=== PATIENT | female | born 1935 | race Caucasian/White ===

== ENCOUNTER 2016-06-02 18:17 | Emergency (ER) | payer MEDICARE, OTHER ==
--- NOTE | 2016-06-02 18:33 | ER Document Report ---
ED Medical Screen (RME) - General Chief Complaint: Fall Stated Complaint: FELL/HEAD INJURY Time seen by provider: 18:29 Mode of Arrival: Wheelchair Information source: Patient Notes: 80 yo female presents to ed for fall with laceration to scalp and nose bleed. TRAVEL OUTSIDE OF THE [place] IN LAST 30 DAYS: No - HPI Onset: Just prior to arrival Onset/Duration: Sudden Quality of pain: Achy Severity: Moderate Pain Level: 4 Associated Symptoms: Headache, Other - scalp lacerations, nose bleed, laceration to nose. Exacerbated by: Denies Relieved by: Denies Similar symptoms previously: No Recently seen / treated by doctor: No - Related Data Smoking: Non-smoker Frequency of alcohol use: None Drug Abuse: None Allergies/Adverse Reactions: No Known Allergies Allergy (Verified 06/02/16 18:27) Past Medical History - Past Medical History Cardiac Medical History: Reports: Hx Coronary Artery Disease, Hx Hypercholesterolemia, Hx Hypertension Past Surgical History: Reports: Hx Appendectomy, Hx Cholecystectomy, Hx Coronary Stent, Hx Hysterectomy, Hx Orthopedic Surgery - shouler surgery - Immunizations Immunizations up to date: Yes Hx Diphtheria, Pertussis, Tetanus Vaccination: Yes
[2016-06-02] MEDS ORDERED: LIDOCAINE 1%/EPINEPHRINE INJ 20 ML VIAL INJ ONE (19:45)
[2016-06-02] MEDS ORDERED: DIPH/PERTUSS(ACELL)/TETANUS VAC/PF 0.5 ML SYR (>=10YO) IM ONE (20:05)
--- NOTE | 2016-06-02 20:07 | ER Document Report ---
ED General - General Chief Complaint: Laceration Stated Complaint: FELL/HEAD INJURY Mode of Arrival: Wheelchair Notes: Patient is an 80-year-old female presenting after she had a mechanical fall prior to arrival. She fell and struck her head on table causing a large laceration to her right scalp. Notes a profuse amount of bleeding from the area that has since been controlled by direct pressure. She notes a constant, dull, throbbing pain to the area. Nothing improves or worsens that pain. She has no history of prior injury to this area. Denies any additional injury during the fall. Denies any syncopal episode leading to this fall and states that she simply tripped over her feet. No loss of consciousness, vomiting, weakness, numbness, altered mental status. She does not use anticoagulation. She has not seen her primary care physician regarding today's concerns. TRAVEL OUTSIDE OF THE [place] IN LAST 30 DAYS: No - Related Data Allergies/Adverse Reactions: No Known Allergies Allergy (Verified 06/02/16 18:27) Past Medical History - General Information source: Patient - Social History Smoking Status: Never Smoker Chew tobacco use (# tins/day): No Frequency of alcohol use: None Drug Abuse: None Lives with: Alone Family History: Reviewed & Not Pertinent Patient has suicidal ideation: No Patient has homicidal ideation: No - Past Medical History Cardiac Medical History: Reports: Hx Coronary Artery Disease, Hx Hypercholesterolemia, Hx Hypertension Past Surgical History: Reports: Hx Appendectomy, Hx Cholecystectomy, Hx Coronary Stent, Hx Hysterectomy, Hx Orthopedic Surgery - shouler surgery - Immunizations Immunizations up to date: Yes Hx Diphtheria, Pertussis, Tetanus Vaccination: Yes Hx Pneumococcal Vaccination: 05/28/10 Review of Systems - Review of Systems Notes: Constitutional: Negative for fever. Eyes: Negative for visual changes. ENT: Negative for facial injury Cardiovascular: Negative for chest injury. Respiratory: Negative for shortness of breath. Gastrointestinal: Negative for abdominal injury. Genitourinary: Negative for genital injury Musculoskeletal: Negative for back injury. Skin: Positive for laceration/abrasions. Neurological: Positive for head injury. Physical Exam - Vital signs Vitals: Temp Pulse Resp BP Pulse Ox 98.1 F 63 20 152/69 H 98 06/02/16 18:31 06/02/16 18:31 06/02/16 18:31 06/02/16 18:31 06/02/16 18:31 Interpretation: Hypertensive Notes: PHYSICAL EXAMINATION: GENERAL: Well-appearing, no acute distress. HEAD: There is a large 15 cm, gaping laceration of the right parietal temporal scalp with active bleeding. EYES: Pupils equal round and reactive to light, extraocular movements intact, sclera anicteric, conjunctiva are normal. ENT: nares patent, no oral pharyngeal trauma. No hemotympanum, no Espinosa's sign , no raccoon eyes. NECK: No midline cervical spine tenderness. Patient able to move their head to 45 bilaterally without any discomfort. LUNGS: Breath sounds clear to auscultation bilaterally and equal. No wheezes rales or rhonchi. HEART: Regular rate and rhythm without murmurs. CHEST WALL: No ecchymosis over the chest wall. ABDOMEN: Soft, nontender, normoactive bowel sounds. No guarding, no rebound. No seatbelt sign. EXTREMITIES: Normal range of motion, no pitting or edema. No long bone deformities. BACK: No midline spinal tenderness, step-offs, or deformities. NEUROLOGICAL: Face symmetric. Tongue protrudes midline. Extraocular motions intact. Pupils are 2 mm and equally reactive. Normal speech, normal gait. 5 out of 5 strength in both the distal and proximal upper and lower extremities bilaterally. Sensation is grossly intact throughout. Finger to nose testing normal. Pronator drift normal. PSYCH: Normal mood, normal affect. SKIN: Warm, Dry, normal turgor, no rashes or lesions noted. Course - Re-evaluation Re-evalutation: 06/03/16 01:25 Presentation of a well appearing elderly patient in no acute distress, vitals within normal limits after a mechanical mechanical fall. Patient denies a syncopal episode as the cause for today's fall. No focal neurologic deficits on exam, no evidence of basilar skull fracture on exam without evidence of hemotympanum, raccoon eyes, or periauricular hematoma. No papilledema. Patient is not on anticoagulation. GCS is 15. No loss of consciousness. No episodes of vomiting. However, based on patient's age a CT of the head has been obtained which is negative for any acute intracranial bleed.. Patient evaluated by Nexus criteria and found to be negative. She denies any neck pain. No indication for further imaging of the cervical spine. A CT of the face was also obtained in triage and demonstrates a nondisplaced nasal fracture. Patient has no focal deformities or limited range of motion in any joint space. Chest and abdominal exam are benign without any focal tenderness, shortness of breath, or bruising over the chest or abdominal wall. Patient has no flank tenderness. There is no obvious findings on trauma exam today and therefore no further imaging or evaluation will be obtained at this time. Patient did have a very extensive scalp laceration that required extensive irrigation and a complex repair using christine. She did require a total of 15 Christine. Her tetanus is updated. At this time will discharge with return precautions and follow-up recommendations. Verbal discharge instructions given a the bedside and opportunity for questions given. Medication warnings reviewed. Patient is in agreement with this plan and has verbalized understanding of return precautions and the need for primary care follow-up in the next 24-72 hours. - Vital Signs Vital signs: Temp Pulse Resp BP Pulse Ox 97.8 F 79 18 172/73 H 98 06/02/16 20:30 06/02/16 20:30 06/02/16 20:30 06/02/16 20:30 06/02/16 20:30 - Diagnostic Test Radiology reviewed: Image reviewed, Reports reviewed Radiology results interpreted by me: 06/03/16 01:27 CT head: No acute intracranial bleed Procedures - Laceration/Wound Repair Head Wound length (cm): 15 Wound's Depth, Shape: Irregular, Flap Laceration pre-procedure: Sterile PPE donned Anesthetic type: 1% Lidocaine w/epi Volume Anesthetic (mLs): 6 Wound explored: Contaminated Irrigated w/ Saline (mLs): 1,000 Wound Debrided: Moderate Wound Repaired With: Christine Number of Sutures: 15 - [place] Post-procedure wound care: Sterile dressing applied Post-procedure NV exam normal: Yes Complications: No Discharge - Discharge Clinical Impression: Fall Qualifiers: Encounter type: initial encounter Qualified Code(s): W19.XXXA - Unspecified fall, initial encounter Scalp laceration Qualifiers: Encounter type: initial encounter Qualified Code(s): S01.01XA - Laceration without foreign body of scalp, initial encounter Nasal bone fracture Qualifiers: Encounter type: initial encounter Fracture type: closed Qualified Code(s): S02.2XXA - Fracture of nasal bones, initial encounter for closed fracture Condition: Good Disposition: HOME, SELF-CARE Additional Instructions: Please return to your primary doctor, the ED, or an urgent care in 7 days for staple removal. Return immediately if you develop spreading redness around the wound, pus from the wound, worsening pain, or a fever of >100.4. Keep the area clean and dry. Wash gently with soap and water twice daily and cover with antibiotic ointment. You have likely sustained a contusion (bruise) to your head. Your CT scans show only a nasal bone fracture. Symptoms to expect from a concussion include nausea, mild to moderate headache, difficulty concentrating or sleeping, and mild lightheadedness. These symptoms should improve over the next few days to weeks. Return to the emergency department or follow-up with your primary care doctor if your symptoms are not improving over this time. Signs of a more serious head injury include vomiting, severe headache, excessive sleepiness or confusion, and weakness or numbness in your face, arms or legs. Return immediately to the Emergency Department if you experience any of these more concerning symptoms. Rest, avoid strenuous physical or mental activity, and avoid activities that could potentially result in another head injury until all your symptoms from this head injury are completely resolved for at least 2-3 weeks. You may take ibuprofen or acetaminophen over the counter according to label instructions for mild headache or scalp soreness. Referrals: TERRENCE KHAN MD [Primary Care Provider] - Follow up in 3-5 days
[2016-06-02 20:32] VITALS: BP 172/73
== END 2016-06-02 20:30 | disposition home or self-care (01) ==
LOC: ER 18:17
PROC: 0HQ0XZZ Repair Scalp Skin, External Approach (ICD-10-PCS; principal; 2016-06-02)
DX: S02.2XXA Fracture of nasal bones, initial encounter for closed fracture (principal); S01.01XA Laceration without foreign body of scalp, initial encounter; W01.190A Fall on same level from slipping, tripping and stumbling with subsequent striking against furniture, initial encounter; Y92.009 Unspecified place in unspecified non-institutional (private) residence as the place of occurrence of the external cause; I25.10 Atherosclerotic heart disease of native coronary artery without angina pectoris; I10 Essential (primary) hypertension; Z98.61 Coronary angioplasty status; Z23 Encounter for immunization
CPT/HCPCS: 99283; 90471; 70450; 70486; 90715; 12005; J3490

== ENCOUNTER 2016-06-09 11:19 | Emergency (ER) | payer MEDICARE, OTHER ==
--- NOTE | 2016-06-09 11:28 | ER Document Report ---
ED Medical Screen (RME) - General Stated Complaint: SUTURE REMOVAL Mode of Arrival: Ambulatory Information source: Patient Notes: Patient presents to the ER for suture removal. Denies fever vomiting diarrhea. TRAVEL OUTSIDE OF THE [place] IN LAST 30 DAYS: No - Related Data Allergies/Adverse Reactions: No Known Allergies Allergy (Verified 06/02/16 18:27) Past Medical History - Past Medical History Cardiac Medical History: Reports: Hx Coronary Artery Disease, Hx Hypercholesterolemia, Hx Hypertension Past Surgical History: Reports: Hx Appendectomy, Hx Cholecystectomy, Hx Coronary Stent, Hx Hysterectomy, Hx Orthopedic Surgery - shouler surgery - Immunizations Immunizations up to date: Yes Hx Diphtheria, Pertussis, Tetanus Vaccination: Yes
--- NOTE | 2016-06-09 12:51 | ER Document Report ---
ED Suture/Wound Recheck - General Chief Complaint: Suture Removal Stated Complaint: SUTURE REMOVAL Mode of Arrival: Ambulatory TRAVEL OUTSIDE OF THE [place] IN LAST 30 DAYS: No - HPI Previous ED treatment: - Tres placed occiput 7 days ago - Related Data Allergies/Adverse Reactions: No Known Allergies Allergy (Verified 06/09/16 11:30) Past Medical History - General Information source: Patient - Social History Smoking Status: Never Smoker Chew tobacco use (# tins/day): No Frequency of alcohol use: None Drug Abuse: None Family History: Reviewed & Not Pertinent Patient has suicidal ideation: No Patient has homicidal ideation: No - Past Medical History Cardiac Medical History: Reports: Hx Coronary Artery Disease, Hx Hypercholesterolemia, Hx Hypertension Renal/ Medical History: Denies: Hx Peritoneal Dialysis Past Surgical History: Reports: Hx Appendectomy, Hx Cholecystectomy, Hx Coronary Stent, Hx Hysterectomy, Hx Orthopedic Surgery - shouler surgery - Immunizations Immunizations up to date: Yes Hx Diphtheria, Pertussis, Tetanus Vaccination: Yes Hx Pneumococcal Vaccination: 05/28/10 Review of Systems - Review of Systems Constitutional: No symptoms reported EENT: No symptoms reported Cardiovascular: No symptoms reported Respiratory: No symptoms reported Gastrointestinal: No symptoms reported Genitourinary: No symptoms reported Female Genitourinary: No symptoms reported Musculoskeletal: No symptoms reported Skin: No symptoms reported Hematologic/Lymphatic: No symptoms reported Neurological/Psychological: No symptoms reported Physical Exam - Vital signs Vitals: Temp Pulse Resp BP Pulse Ox 97.6 F 46 L 16 181/61 H 100 06/09/16 11:27 06/09/16 11:27 06/09/16 11:27 06/09/16 11:27 06/09/16 11:27 Interpretation: Normal - General General appearance: Appears well, Alert - HEENT Head: Normocephalic, Atraumatic, Other - Healing wound Eyes: Normal Pupils: PERRL - Respiratory Respiratory status: No respiratory distress Chest status: Nontender Breath sounds: Normal Chest palpation: Normal - Cardiovascular Rhythm: Regular Heart sounds: Normal auscultation Murmur: No - Abdominal Inspection: Normal Distension: No distension Bowel sounds: Normal Tenderness: Nontender Organomegaly: No organomegaly - Back Back: Normal, Nontender - Extremities General upper extremity: Normal inspection, Nontender, Normal color, Normal ROM , Normal temperature General lower extremity: Normal inspection, Nontender, Normal color, Normal ROM , Normal temperature, Normal weight bearing. No: Leta's sign - Neurological Neuro grossly intact: Yes Cognition: Normal Orientation: AAOx4 [place] Coma Scale Eye Opening: Spontaneous [place] Coma Scale Verbal: Oriented Олег Coma Scale Motor: Obeys Commands Олег Coma Scale Total: 15 Speech: Normal Motor strength normal: LUE, RUE, LLE, RLE Sensory: Normal - Psychological Associated symptoms: Normal affect, Normal mood - Skin Skin Temperature: Warm Skin Moisture: Dry Skin Color: Normal Course - Re-evaluation Re-evalutation: 06/09/16 12:50 Nursing staff advised to remove tres - Vital Signs Vital signs: Temp Pulse Resp BP Pulse Ox 97.6 F 46 L 16 181/61 H 100 06/09/16 11:27 06/09/16 11:27 06/09/16 11:27 06/09/16 11:27 06/09/16 11:27 Discharge - Discharge Clinical Impression: Removal of staple Disposition: HOME, SELF-CARE Additional Instructions: Follow-up with private doctor in 1 to 2 days for final radiology readings please return to the emergency room for any change worsening condition. Follow up with private M.DJeff for all other routine health care needs.
[2016-06-09 13:03] VITALS: BP 184/67
== END 2016-06-09 13:09 | disposition home or self-care (01) ==
LOC: ER 11:19
DX: Z48.02 Encounter for removal of sutures (principal); I25.10 Atherosclerotic heart disease of native coronary artery without angina pectoris; I10 Essential (primary) hypertension

== ENCOUNTER → 2016-08-10 | Outpatient (CLI) | payer MEDICARE, OTHER ==
[2016-08-10 09:50] LABS: CHOLESTEROL 214.27 mg/dL (0-200); Direct HDL 74 mg/dL (>40); TRIGLYCERIDES 113 mg/dL (<150)
[2016-08-10 10:04] LABS: DIRECT LDL 106 mg/dL (<100)
== END ==
LOC: OD 08:49
PROVIDERS: ATTEND Internal Medicine
DX: I25.10 Atherosclerotic heart disease of native coronary artery without angina pectoris (principal); E78.4 Other hyperlipidemia; Z98.61 Coronary angioplasty status; I10 Essential (primary) hypertension; I36.1 Nonrheumatic tricuspid (valve) insufficiency; I65.23 Occlusion and stenosis of bilateral carotid arteries; Z79.899 Other long term (current) drug therapy
CPT/HCPCS: 36415; 80061

== ENCOUNTER 2017-01-24 14:07 | Emergency (ER) | payer MEDICARE, OTHER ==
--- NOTE | 2017-01-24 14:40 | ER Document Report ---
ED Medical Screen (RME) - General Chief Complaint: Fall Injury Stated Complaint: FALL/RIGHT ARM LACERATION Time Seen by Provider: 01/24/17 14:38 TRAVEL OUTSIDE OF THE [place] IN LAST 30 DAYS: No - HPI Notes: 01/24/17 14:38 Patient is an 81-year-old female who presents the ED planing of a right forearm laceration prior to arrival. Patient states that she cut it on a metal vent in her room. Patient states that she can still move her hand and fingers without any difficulties. She has no numbness or tingling. Patient states that her last tetanus was within the last 1-2 years. No other concerns or complaints at this time. Denies any diabetes or drug allergies. I have treated and performed a rapid initial assessment of this patient. A comprehensive ED assessment and evaluation of the patient, analysis of test results and completion of medical decision making process will be conducted by additional ED providers. - Related Data Allergies/Adverse Reactions: No Known Allergies Allergy (Verified 06/09/16 11:30) Past Medical History - Past Medical History Cardiac Medical History: Reports: Hx Coronary Artery Disease, Hx Hypercholesterolemia, Hx Hypertension Renal/ Medical History: Denies: Hx Peritoneal Dialysis Past Surgical History: Reports: Hx Appendectomy, Hx Cholecystectomy, Hx Coronary Stent, Hx Hysterectomy, Hx Orthopedic Surgery - shouler surgery - Immunizations Immunizations up to date: Yes Hx Diphtheria, Pertussis, Tetanus Vaccination: Yes Physical Exam - Vital signs Vitals: Temp Pulse Resp BP Pulse Ox 97.8 F 52 L 16 151/57 H 99 01/24/17 14:12 01/24/17 14:12 01/24/17 14:12 01/24/17 14:12 01/24/17 14:12 - Respiratory Respiratory status: No respiratory distress Breath sounds: Normal - Cardiovascular Rhythm: Regular Heart sounds: Normal auscultation - Skin Notes: Large approx 6cm lac to the right lateral forearm with a smaller laceration distally. N/V intact distal. FROM to wrist/elbow/fingers. Strength intact 5+/ 5. Course - Vital Signs Vital signs: Temp Pulse Resp BP Pulse Ox 97.8 F 52 L 16 151/57 H 99 01/24/17 14:12 01/24/17 14:12 01/24/17 14:12 01/24/17 14:12 01/24/17 14:12
--- NOTE | 2017-01-24 15:29 | ER Document Report ---
ED Fall - General Mode of Arrival: Ambulatory Information source: Patient TRAVEL OUTSIDE OF THE [place] IN LAST 30 DAYS: No - HPI Occurred: This morning Where: Home Context: Tripped Associated symptoms: None Location of injury/pain: Upper extremity - R - General Chief Complaint: Fall Injury Stated Complaint: FALL/RIGHT ARM LACERATION Time Seen by Provider: 01/24/17 14:38 Notes: Patient is an 81-year-old female who presents to the emergency department today with complaints of a laceration to her right upper extremity. Patient states at 0900 this morning she tripped and fell and hit her right arm on an air conditioning vent. Patient states she did not hit her head during the fall and she is not on any blood thinning medications. Patient states she attempted to bandage the wound at home but was having difficulty stopping the bleeding. Patient had no other injuries during the fall. (CHRISTELLE ELISE) - Related data Allergies/Adverse Reactions: No Known Allergies Allergy (Verified 06/09/16 11:30) Past Medical History - General Information source: Patient - Social History Smoking Status: Former Smoker Cigarette use (# per day): No Frequency of alcohol use: None Drug Abuse: None Lives with: Family Family History: Reviewed & Not Pertinent Patient has suicidal ideation: No Patient has homicidal ideation: No - Past Medical History Cardiac Medical History: Reports: Hx Coronary Artery Disease, Hx Hypercholesterolemia, Hx Hypertension Past Surgical History: Reports: Hx Appendectomy, Hx Cholecystectomy, Hx Coronary Stent, Hx Hysterectomy, Hx Orthopedic Surgery - shouler surgery - Immunizations Immunizations up to date: Yes Hx Diphtheria, Pertussis, Tetanus Vaccination: Yes Hx Pneumococcal Vaccination: 05/28/10 Review of Systems - Review of Systems Constitutional: No symptoms reported EENT: No symptoms reported Cardiovascular: No symptoms reported Respiratory: No symptoms reported Gastrointestinal: No symptoms reported Genitourinary: No symptoms reported Female Genitourinary: No symptoms reported Musculoskeletal: No symptoms reported Skin: See HPI, Other - laceration to right upper extremity Hematologic/Lymphatic: No symptoms reported Neurological/Psychological: denies: Weakness, Numbness, Tingling -: Yes All other systems reviewed and negative Physical Exam - Vital signs Vitals: Temp Pulse Resp BP Pulse Ox 97.8 F 52 L 16 151/57 H 99 01/24/17 14:12 01/24/17 14:12 01/24/17 14:12 01/24/17 14:12 01/24/17 14:12 - Notes Notes: Physical Exam: General: Alert, appears well. HEENT: Normocephalic. Atraumatic. PERRL. Extraocular movements intact. Oropharynx clear. Neck: Supple. Non-tender. Respiratory: No respiratory distress. Coarse but equal breath sounds bilaterally consistent with smoking history. Cardiovascular: Regular rate and rhythm. Abdominal: Normal Inspection. Non-tender. No distension. Normal Bowel Sounds. Back: Non-tender. No deformity or step off. Extremities: Moves all four extremities. Upper extremities: V-shaped laceration to RUE (see skin exam), sensation and motor intact distally. Lower extremities: Normal inspection. No edema. Normal ROM. Neurological: Normal cognition. AAOx4. Normal speech. Psychological: Normal affect. Normal Mood. Skin: v-shaped laceration to right proximal forearm, dorsal ulnar aspect measuring 10cm x 4cm x 5 cm with underlying muscle exposure. Second skin flap laceration just distal to above mentioned laceration measuring 3cm x 2.5 cm. ( CHRISTELLE ELISE) Course - Re-evaluation Re-evalutation: 01/24/17 16:15 PROCEEDURE: The 2 right dorsal ulnar forearm laceration flaps were anesthetized with a total of 10 mL's 1% lidocaine infiltrated locally. The skin was prepped with Hibiclens. The wounds were irrigated with 20 mL's of normal saline. The wounds were clean, no debris or foreign bodies. Debridement was minimal. The 2 wounds were closed with a total of 28 christine. A sterile dressing using Xeroform 4 x 4's and gauze wrap was placed. There was no distal sensory or motor deficits. There were no complications. ( HENRY NOLEN) - Vital Signs Vital signs: Temp Pulse Resp BP Pulse Ox 97.8 F 52 L 16 151/57 H 99 01/24/17 14:12 01/24/17 14:12 01/24/17 14:12 01/24/17 14:12 01/24/17 14:12 Discharge - Discharge Clinical Impression: Forearm laceration Qualifiers: Encounter type: initial encounter Laterality: right Qualified Code(s): S51.811A - Laceration without foreign body of right forearm, initial encounter Condition: Stable Disposition: HOME, SELF-CARE Additional Instructions: Laceration Care: Your laceration has been stapled to keep the skin edges aligned during healing. The time of staple removal depends on the nature and location of your cut. Please follow the care instructions the doctor has outlined for you and return for further care, according to the schedule you've been given. Keep the wound and dressing clean and dry. If the dressing gets wet or blood soaked, remove it and blot the wound dry, then reapply a new dressing. Unless you were instructed otherwise, dressings should be changed at least daily. If any signs of infection occur (swelling, redness, increasing tenderness, red streaks, tender lumps in the armpit or groin above the laceration, or fever) , see the doctor immediately. KEEP THE WOUND DRESSING CLEAN AND DRY. ELEVATE THE ARM ABOVE YOUR HEART TODAY AND TOMORROW. RETURN IN 10 DAYS FOR STAPLE REMOVAL. RETURN SOONER IF NAY SIGNS OF INFECTION. RETURN TO THE EMERGENCY ROOM IF ANY NEW OR WORSENING SYMPTOMS. Referrals: TERRENCE KHAN MD [Primary Care Provider] - Follow up as needed Timibsriram Attestation: 01/24/17 16:23 I personally performed the services described in the documentation, reviewed and edited the documentation which was dictated to the scribe in my presence, and it accurately records my words and actions. (HENRY NOLEN) Scribe Documentation - Scribe Written by Wilfredo:: Wilfredo Hanley, 01/24/2017 1557 acting as scribe for :: Marilee
--- NOTE | 2017-01-24 15:29 | RADIOLOGY REPORT (SQ) ---
EXAM DESCRIPTION: FOREARM RIGHT radius and ulna COMPLETED DATE/TIME: 01/24/2017 3:06 pm REASON FOR STUDY: right forearm laceration COMPARISON: None. NUMBER OF VIEWS: Two views. TECHNIQUE: Two radiographic images acquired of the right forearm, including elbow and wrist in at le ast one projection. LIMITATIONS: None. FINDINGS: MINERALIZATION: Diffuse demineralization. BONES: No acute fracture. No worrisome bone lesions. SOFT TISSUES: Bandage around the arm. No metallic foreign bodies. OTHER: Arthritic changes seen at the wrist. IMPRESSION: No acute fractures identified. TECHNICAL DOCUMENTATION: JOB ID: [id number]- All Rights Reserved
[2017-01-24] MEDS ORDERED: LIDOCAINE 1% INJ-PF (10 MG/ML) 30 ML SDV INJ ONE (15:34)
[2017-01-24 16:31] VITALS: BP 172/63
== END 2017-01-24 16:31 | disposition home or self-care (01) ==
LOC: ER 14:07
PROC: 0HQDXZZ Repair Right Lower Arm Skin, External Approach (ICD-10-PCS; principal; 2017-01-24)
DX: S51.811A Laceration without foreign body of right forearm, initial encounter (principal); W01.118A Fall on same level from slipping, tripping and stumbling with subsequent striking against other sharp object, initial encounter; Y92.009 Unspecified place in unspecified non-institutional (private) residence as the place of occurrence of the external cause; I25.10 Atherosclerotic heart disease of native coronary artery without angina pectoris; E78.00 Pure hypercholesterolemia, unspecified; I10 Essential (primary) hypertension; Z87.891 Personal history of nicotine dependence; Z90.49 Acquired absence of other specified parts of digestive tract; Z90.710 Acquired absence of both cervix and uterus
CPT/HCPCS: 99283; 73090; 12006; J3490

== ENCOUNTER 2017-02-02 12:35 | Emergency (ER) | payer MEDICARE, OTHER ==
[2017-02-02 12:43] VITALS: BP 170/63
--- NOTE | 2017-02-02 12:55 | ER Document Report ---
ED Suture/Wound Recheck - General Chief Complaint: Suture Removal Stated Complaint: STITCH REMOVAL Time Seen by Provider: 02/02/17 12:52 Mode of Arrival: Ambulatory Information source: Patient Notes: 81-year-old female presents to ED to have her sutures removed that were placed on her right forearm on 830. She has 28 christine. She states she fell and hit an air conditioning great cutting her arm. TRAVEL OUTSIDE OF THE [place] IN LAST 30 DAYS: No - HPI Previous ED treatment: Laceration repair Antibiotics given previously: Prescription Quality of pain: No pain Severity: None Pain Level: Denies Context: Injury Symptoms since procedure: No complaints Exacerbated by: Denies Relieved by: Denies - Related Data Allergies/Adverse Reactions: No Known Allergies Allergy (Verified 02/02/17 12:41) Past Medical History - General Information source: Patient - Social History Smoking Status: Former Smoker Cigarette use (# per day): No Chew tobacco use (# tins/day): No Smoking Education Provided: No Frequency of alcohol use: None Drug Abuse: None Lives with: Family Family History: Reviewed & Not Pertinent Patient has suicidal ideation: No Patient has homicidal ideation: No - Past Medical History Cardiac Medical History: Reports: Hx Coronary Artery Disease, Hx Hypercholesterolemia, Hx Hypertension Pulmonary Medical History: Reports: None EENT Medical History: Reports: None Neurological Medical History: Reports: None Endocrine Medical History: Reports: None Renal/ Medical History: Reports: None Malignancy Medical History: Reports: None GI Medical History: Reports: None Musculoskeltal Medical History: Reports None Skin Medical History: Reports None Psychiatric Medical History: Reports: None Traumatic Medical History: Reports: None Infectious Medical History: Reports: None Past Surgical History: Reports: Hx Appendectomy, Hx Cholecystectomy, Hx Coronary Stent, Hx Hysterectomy, Hx Orthopedic Surgery - [facility] surgery - Immunizations Immunizations up to date: Yes Hx Diphtheria, Pertussis, Tetanus Vaccination: Yes Hx Pneumococcal Vaccination: 05/28/10 Review of Systems - Review of Systems Constitutional: No symptoms reported EENT: No symptoms reported Cardiovascular: No symptoms reported Respiratory: No symptoms reported Gastrointestinal: No symptoms reported Genitourinary: No symptoms reported Female Genitourinary: No symptoms reported Musculoskeletal: No symptoms reported Skin: Other - staple removal Hematologic/Lymphatic: No symptoms reported Neurological/Psychological: No symptoms reported -: Yes All other systems reviewed and negative Physical Exam - Vital signs Vitals: Temp Pulse Resp BP Pulse Ox 98.6 F 47 L 24 H 170/63 H 99 02/02/17 12:42 02/02/17 12:42 02/02/17 12:42 02/02/17 12:42 02/02/17 12:42 Interpretation: Normal - General General appearance: Appears well, Alert - HEENT Head: Normocephalic, Atraumatic Eyes: Normal Pupils: PERRL - Respiratory Respiratory status: No respiratory distress Chest status: Nontender Breath sounds: Normal Chest palpation: Normal - Cardiovascular Rhythm: Regular Heart sounds: Normal auscultation Murmur: No - Abdominal Inspection: Normal Distension: No distension Bowel sounds: Normal Tenderness: Nontender Organomegaly: No organomegaly - Back Back: Normal, Nontender - Extremities General upper extremity: Normal inspection, Nontender, Normal color, Normal ROM , Normal temperature General lower extremity: Normal inspection, Nontender, Normal color, Normal ROM , Normal temperature, Normal weight bearing. No: Leta's sign - Neurological Neuro grossly intact: Yes Cognition: Normal Orientation: AAOx4 Олег Coma Scale Eye Opening: Spontaneous Олег Coma Scale Verbal: Oriented Олег Coma Scale Motor: Obeys Commands Олег Coma Scale Total: 15 Speech: Normal Motor strength normal: LUE, RUE, LLE, RLE Sensory: Normal - Psychological Associated symptoms: Normal affect, Normal mood - Skin Skin Temperature: Warm Skin Moisture: Dry Skin Color: Normal Location of irregularity: Extremities - right forearm christine intact no signs of infection. well approximated. Course - Re-evaluation Re-evalutation: 02/02/17 13:28 Patient tolerated removal of christine well. Her site was cleaned with soap and water rinsed with saline and patted dry and bacitracin and a dressing applied. - Vital Signs Vital signs: Temp Pulse Resp BP Pulse Ox 98.6 F 47 L 24 H 170/63 H 99 02/02/17 12:42 02/02/17 12:42 02/02/17 12:42 02/02/17 12:42 02/02/17 12:42 Discharge - Discharge Clinical Impression: Removal of christine Condition: Stable Disposition: HOME, SELF-CARE Instructions: Family Physicians / Practices, Staple Removal (OM) Additional Instructions: LACERATION CARE: Your laceration has been sutured to keep the skin edges aligned during healing. The time of suture removal depends on the nature and location of your cut. Please follow the care instructions the doctor has outlined for you and return for further care, according to the schedule you've been given. Keep the wound and dressing clean. Unless you were told otherwise, you may shower daily, blotting the wound dry with a clean, unused towel. At other times, If the dressing gets wet or blood soaked, remove it and blot the wound dry, then reapply a new dressing. Unless you were instructed otherwise, dressings should be changed at least daily. If any signs of infection occur (swelling, redness, drainage, increasing tenderness, red streaks, tender lumps in the armpit or groin above the laceration, or fever), see the doctor immediately. SOAP CLEANSING: Gently wash the wound daily using a mild soap (like Ivory, Phisoderm, Neutrogena). Use warm water, rubbing gently until all debris, ooze, and crusting have been washed from the wound. Allow to dry briefly (about 10 minutes) after cleaning. Repeat this cleansing at least three times a day for the first two days and then once or twice a day. ANTIBIOTIC OINTMENT PROTECTION: Your wounds are such that dressing them is not practical or optional. After cleansing, you should apply a thin coating of antibiotic ointment ( Bacitracin, not Neosporin) to the wounds at least three times daily. This lessens infection risk, and may decrease the amount of scarring. Use a q-tip or dull butter knife, not your finger, to apply this ointment. Any debris or ooze which builds up in the ointment should be gently rubbed off with a sterile gauze pad. Harder crusting may need to be gently scrubbed off with a clean wash cloth with soap and warm water, perhaps applying a warm, wet wash cloth to the wound for ten minutes first. Development of redness, severe itching, or blistering may mean allergy to the ointment. See the doctor. FOLLOW-UP CARE: If you have been referred to a physician for follow-up care, call the physician s office for an appointment as you were instructed or within the next two days. If you experience worsening or a significant change in your symptoms, notify the physician immediately or return to the Emergency Department at any time for re-evaluation.
== END 2017-02-02 13:20 | disposition home or self-care (01) ==
LOC: ER 12:35
DX: S51.811D Laceration without foreign body of right forearm, subsequent encounter (principal); W19.XXXD Unspecified fall, subsequent encounter; I25.10 Atherosclerotic heart disease of native coronary artery without angina pectoris; I10 Essential (primary) hypertension; Z95.5 Presence of coronary angioplasty implant and graft; Z87.891 Personal history of nicotine dependence

== ENCOUNTER → 2017-02-05 | Outpatient (CLI) | payer MEDICARE, OTHER ==
[2017-02-05 13:54] LABS: CHOLESTEROL 186.43 mg/dL (0-200); Direct HDL 61 mg/dL (>40); TRIGLYCERIDES 198 mg/dL (<150)
[2017-02-05 14:06] LABS: DIRECT LDL 85 mg/dL (<100)
[2017-02-05 14:10] LABS: VLDL CHOLESTEROL 39.6 mg/dL (10-31)
== END ==
LOC: OD 12:20
PROVIDERS: ATTEND Internal Medicine
DX: E78.5 Hyperlipidemia, unspecified (principal); I10 Essential (primary) hypertension; J44.9 Chronic obstructive pulmonary disease, unspecified; E55.9 Vitamin D deficiency, unspecified; Z79.899 Other long term (current) drug therapy
CPT/HCPCS: 36415; 80061

== ENCOUNTER → 2017-05-09 | Outpatient (CLI) | payer MEDICARE, OTHER ==
--- NOTE | 2017-05-09 16:35 | WOMENS IMAGING REPORT ---
EXAM DESCRIPTION: 3D SCREENING MAMMO BILAT COMPLETED DATE/TIME: 05/09/2017 1:28 pm REASON FOR STUDY: SCREENING MAMMO Z12.31 ENCNTR SCREEN MAMMOGRAM FOR MALIGNANT NEOPLASM OF BOBBI COMPARISON: Multiple since 2009 TECHNIQUE: Standard craniocaudal and mediolateral oblique views of each breast recorded using digita l acquisition and breast tomosynthesis. LIMITATIONS: None. FINDINGS: Findings present which are benign by mammographic criteria. No suspicious masses, calcifi cations or architectural distortion. Pertinent benign findings: Bilateral vascular calcifications are present Read with the assistance of CAD. .[facility] - R2 Cenova Version 1.3 .[facility] - R2 Cenova Version 1.3 .[facility] - R2 Cenova Version 2.4 .[facility] - R2 Cenova Version 2.4 .[facility] - R2 [employer] Version 9.2 Benign mammographic findings may include one or more of the following: Smooth masses, popcorn/rim/co arse calcifications, asymmetries, post-procedure changes, and lesions with long-standing stability. IMPRESSION: BENIGN MAMMOGRAPHIC FINDINGS. BIRADS 2 BREAST DENSITY: b. There are scattered areas of fibroglandular density. BIRAD: 2 BENIGN FINDING(S) RECOMMENDATION: RECOMMENDATION: ROUTINE SCREENING COMMENT: The patient has been notified of the results by letter per SA requirements. Additional no tification policies are in place for contacting patient with suspicious or incomplete findings. Quality ID #[id number]: The [employer] recommends an annual screening mammogram for women aged 40 years or over. This facility utilizes a reminder system to ensure that all patients receive reminder letters, and/or direct phone calls for appointments. This includes reminders for routine scr eening mammograms, diagnostic mammograms, or other Breast Imaging Interventions when appropriate. Th is patient will be placed in the appropriate reminder system. The [employer] (ACR) has developed recommendations for screening MRI of the breast s in certain patient populations, to be used in conjunction with mammography. Breast MRI surveillanc e may be appropriate for women with more than 20% lifetime risk of developing breast cancer as deter mined by genetic testing, significant family history of the disease, or history of mantle radiation f or Hodgkins Disease. ACR Practice Guidelines 2008. DBT Technology DBT is a type of tomographic mammography. With conventional mammography, overlapping breast tissue ma y make lesions difficult to detect, even with good compression. DBT uses an x-ray tube that rotates a round the breast, taking images at different angles. These images are then combined to create thin sl ices of the breast that the radiologist can view as a 3D reconstruction. The Hologic unit can perform full-field digital mammograms (2D imaging); or DBT (3D imaging); or both, in a combination mode that quickly performs both the mammogram and the tomosynthesis scan while the breast is still compressed. PQRS 6045F: Fluoroscopic imaging is not utilized for breast tomosynthesis. TECHNICAL DOCUMENTATION: FINDING NUMBER: (1) ASSESSMENT: (1) JOB ID: [id number] [employer]- All Rights Reserved
== END ==
LOC: WI 11:06
PROVIDERS: ATTEND Physician Assistant
DX: Z12.31 Encounter for screening mammogram for malignant neoplasm of breast (principal)
CPT/HCPCS: 77063; G0202; 77067

== ENCOUNTER 2017-09-23 01:48 | Observation (INO) | payer MEDICARE, OTHER ==
[2017-09-23] MEDS ORDERED: HYDROCODONE/ACETAMINOPHEN 5-325 MG TABLET PO ONE ×2 (02:37→07:42)
[2017-09-23 03:24] LABS: ALANINE AMINOTRANSFERASE 29 U/L (9-52); ALBUMIN 4.1 g/dL (3.5-5.0); ALKALINE PHOSPHATASE 127 U/L (38-126); ANION GAP 15 (5-19); ASPARTATE AMINO TRANSFERASE 37 U/L (14-36); BILIRUBIN,DIRECT 0.6 mg/dL (0.0-0.4); BILIRUBIN,TOTAL 1.2 mg/dL (0.2-1.3); BLOOD UREA NITROGEN 27 mg/dL (7-20); CALCIUM 9.6 mg/dL (8.4-10.2); CARBON DIOXIDE 27 mmol/L (22-30); CHLORIDE 103 mmol/L (98-107); GLUCOSE 92 mg/dL (75-110); POTASSIUM 3.9 mmol/L (3.6-5.0); SODIUM 145.4 mmol/L (137-145); TOTAL PROTEIN 6.7 g/dL (6.3-8.2)
[2017-09-23 03:29] LABS: ABSOLUTE EOSINOPHILS # (AUTO) 0.1 10^3/uL (0.0-0.6); ABSOLUTE MONOCYTES (AUTO) 0.5 10^3/uL (0.1-1.4); ABSOLUTE NEUT (AUTO) 3.4 10^3/uL (1.7-8.2); BASOPHILS % (AUTO) 0.8 % (0-2); EOSINOPHILS % (AUTO) 1.5 % (0-6); LYMPHOCYTES % (AUTO) 19.4 % (13-45); MEAN CORPUSCULAR HEMOGLOBIN 29.4 pg (27.0-33.4); MEAN CORPUSCULAR HGB CONC 34.4 g/dL (32.0-36.0); MEAN CORPUSCULAR VOLUME 86 fl (80-97); MONOCYTES % (AUTO) 10.7 % (3-13); PLATELET COUNT 218 10^3/uL (150-450); RED BLOOD COUNT 3.74 10^6/uL (3.72-5.28); RED CELL DISTRIBUTION WIDTH 13.7 % (11.5-14.0); SEGMENTED NEUTROPHILS % (AUTO) 67.6 % (42-78); TOTAL CELLS COUNTED % (AUTO) 100 %; WHITE BLOOD COUNT 5.1 10^3/uL (4.0-10.5)
--- NOTE | 2017-09-23 03:36 | RADIOLOGY REPORT (SQ) ---
EXAM DESCRIPTION: CT HEAD WITHOUT CLINICAL HISTORY: 82 years Female, fall/syncope COMPARISON: .11.11 TECHNIQUE: No contrast. Coronal and sagittal reformat. This exam was performed according to our departmental dose-optimization program, which includes automated exposure control, adjustment of the mA and/or kV according to patient size and/or use of iterative reconstruction technique. FINDINGS: No hemorrhage or infarct. No mass, mass effect, or midline shift. Mild white matter microangiopathy. Atherosclerosis. Brain and extra-axial structures appear otherwise intact. IMPRESSION: No acute findings.
[2017-09-23 03:58] LABS: APPEARANCE,URINE CLEAR; BILIRUBIN,URINE NEGATIVE (NEGATIVE); GLUCOSE, URINE NEGATIVE (NEGATIVE); KETONES,URINE 80 mg/dL (NEGATIVE); LEUKOCYTE ESTERASE,URINE NEGATIVE (NEGATIVE); NITRITE,URINE NEGATIVE (NEGATIVE); PROTEIN,URINE NEGATIVE (NEGATIVE); URINE SPECIFIC GRAVITY 1.026
--- NOTE | 2017-09-23 03:59 | RADIOLOGY REPORT (SQ) ---
EXAM DESCRIPTION: HIP RIGHT AP/LATERAL CLINICAL HISTORY: 82 years, Female, pain, fall COMPARISON: None. NUMBER OF VIEWS: 3 LIMITATIONS: None. FINDINGS: Comminuted fracture of the right paracentral pubic symphysis with at least 1.8 cm superior displacement. Mild chronic deformity of the left superior and inferior pubic rami. Right hip appears intact. Moderate osteoarthritis of bilateral hips. Moderate lumbar disc desiccation. Atherosclerosis. IMPRESSION: Comminuted fracture of the right paracentral pubic symphysis.
[2017-09-23 04:00] LABS: COLOR,URINE YELLOW
--- NOTE | 2017-09-23 04:01 | RADIOLOGY REPORT (SQ) ---
EXAM DESCRIPTION: CHEST SINGLE VIEW CLINICAL HISTORY: 82 years Female, syncope COMPARISON: 11/26/2015 NUMBER OF VIEWS/TECHNIQUE: 1/AP FINDINGS: Adequate lung volume, clear parenchyma, atherosclerosis, normal cardiac silhouette. No pneumothorax. Metallic anchor fixation at the right humeral head. IMPRESSION: No acute cardiopulmonary findings.
[2017-09-23] MEDS ORDERED: NORMAL SALINE 1000 ML 500 ML IV ONE (04:13)
--- NOTE | 2017-09-23 04:15 | ER Document Report ---
ED Fall - General Chief Complaint: Fall Stated Complaint: FALL Time Seen by Provider: 09/23/17 02:18 Notes: Patient is an 82-year-old female that comes by EMS from home for a fall. Patient states she does not remember the fall, she woke up next to her bed after she had gone to bed and was sleeping. She is unsure if she got up and hit her head or exactly what happened. She states that she hurts in her hip area, mainly on the right, however she states she has chronic pain. She denies headache, back pain, focal numbness or weakness, shortness of breath, chest pain , fever, and she states that during the day she felt fine. She does admit to eating/drinking less but otherwise denies any abnormality at home. Patient called EMS herself. She lives alone. Past medical history includes hypertension and OH many years ago reportedly. She denies taking a blood thinner. Friend at bedside. TRAVEL OUTSIDE OF THE [place] IN LAST 30 DAYS: No - Related data Allergies/Adverse Reactions: No Known Allergies Allergy (Verified 02/02/17 12:41) Past Medical History - General Information source: Patient - Social History Smoking Status: Never Smoker Frequency of alcohol use: None Drug Abuse: None Lives with: Alone Family History: Reviewed & Not Pertinent Patient has suicidal ideation: No Patient has homicidal ideation: No - Past Medical History Cardiac Medical History: Reports: Hx Coronary Artery Disease, Hx Hypercholesterolemia, Hx Hypertension Renal/ Medical History: Denies: Hx Peritoneal Dialysis Past Surgical History: Reports: Hx Appendectomy, Hx Cholecystectomy, Hx Coronary Stent, Hx Hysterectomy, Hx Orthopedic Surgery - shouler surgery - Immunizations Immunizations up to date: Yes Hx Diphtheria, Pertussis, Tetanus Vaccination: Yes Hx Pneumococcal Vaccination: 05/28/10 Review of Systems - Review of Systems Constitutional: See HPI EENT: No symptoms reported Cardiovascular: See HPI Respiratory: No symptoms reported Gastrointestinal: No symptoms reported Genitourinary: No symptoms reported Female Genitourinary: No symptoms reported Musculoskeletal: No symptoms reported Skin: No symptoms reported Hematologic/Lymphatic: No symptoms reported Neurological/Psychological: See HPI Physical Exam - Vital signs Vitals: Temp Pulse Resp BP Pulse Ox 97.6 F 58 L 16 153/70 H 99 09/23/17 02:09 09/23/17 02:09 09/23/17 02:09 09/23/17 02:09 09/23/17 02:09 Interpretation: Normal - General General appearance: Appears well In distress: None - Patient has pain response to movement but while sitting on the bed and she does not have any obvious distress - HEENT Head: Normocephalic, Atraumatic Eyes: Normal Pupils: PERRL - Respiratory Respiratory status: No respiratory distress Chest status: Nontender Breath sounds: Normal. No: Decreased air movement, Wheezing - Cardiovascular Rhythm: Regular. No: Tachycardia Heart sounds: Normal auscultation, S1 appreciated, S2 appreciated Murmur: No Normal capillary refill: Yes - Abdominal Inspection: Normal Distension: No distension Bowel sounds: Normal Tenderness: Nontender. No: Tender, Guarding - Back Back: Normal, Nontender. No: Tender, Vertebra tenderness - Extremities General upper extremity: Normal inspection, Nontender, Normal color, Normal ROM , Normal temperature General lower extremity: Other - Patient with pain response to palpation over the general hip areas bilaterally, slightly worse on the right, no deformity of the lower extremities noted, normal distal neurovascular exam. Patient has a lot of pain with moving her legs worse on the right side - Neurological Neuro grossly intact: Yes Cognition: Normal Orientation: AAOx4 Олег Coma Scale Eye Opening: Spontaneous Олег Coma Scale Verbal: Oriented Burke Coma Scale Motor: Obeys Commands Олег Coma Scale Total: 15 Speech: Normal Motor strength normal: LUE, RUE, LLE, RLE Sensory: Normal - Psychological Associated symptoms: Normal affect, Normal mood - Skin Skin Temperature: Warm Skin Moisture: Dry Skin Color: Normal Course - Re-evaluation Re-evalutation: Patient is neurologically intact, alert, well-appearing. Difficult to establish what happened exactly, as result workup was performed including blood counts, cardiac workup, CAT scan of the head, chest x-ray, and imaging of the hip and pelvis because of patient's pain on exam. Urine also obtained, shows evidence of dehydration, BUN is also elevated, patient given some IV fluids. Patient was able to do this with some difficulty on the bedpan. CAT scan unremarkable, chest x-ray unremarkable, hip/pelvic x-ray shows comminuted and displaced fracture of the pubic symphysis. This is consistent with patient's presentation. I am concerned about the patient because of her age, living alone, and her fracture/pain with inability to ambulate. Discussed with Dr. Grijalva, recommends orthopedic consult and admission. Discussed with Dr. Pleitez, he will consult on the patient, discussed with Dr. King front office secretary for Dr. Leggett , patient will be admitted to the medical floor. Patient states understanding and agreement with plan. - Vital Signs Vital signs: Temp Pulse Resp BP Pulse Ox 97.6 F 58 L 25 H 138/67 H 99 09/23/17 02:09 09/23/17 02:09 09/23/17 03:01 09/23/17 03:00 09/23/17 03:01 - Laboratory Result Diagrams: 09/23/17 03:00 09/23/17 03:00 Laboratory results interpreted by me: 09/23/17 09/23/17 09/23/17 03:00 03:00 03:40 Hgb 11.0 L Hct 32.0 L Sodium 145.4 H BUN 27 H Direct Bilirubin 0.6 H AST 37 H Alkaline Phosphatase 127 H Urine Ketones 80 H Urine Urobilinogen 4.0 H Discharge - Discharge Clinical Impression: Dehydration Fall Qualifiers: Encounter type: initial encounter Qualified Code(s): W19.XXXA - Unspecified fall, initial encounter Closed fracture of symphysis pubis Qualifiers: Encounter type: initial encounter Laterality: unspecified laterality Qualified Code(s): S32.599A - Other specified fracture of unspecified pubis, initial encounter for closed fracture Condition: Stable Disposition: ADMITTED INPATIENT Admitting Provider: Fernando - for Dr. Leggett Unit Admitted: Medical Floor
--- NOTE | 2017-09-23 07:33 | PDOC CONSULTATION ---
Consultation Consult Date: 09/23/17 Consult reason:: Pelvic fracture History of Present Illness Admission Date/PCP: 09/23/17 04:54 TERRENCE KHAN MD History of Present Illness: LINDSEY ART is a 82 year old female who was an independent community ambulator who sustained an unwitnessed fall and presents to the emergency room unable to weight-bear. In the emergency room she is evaluated with a pelvic x- ray which demonstrates a superior pubic ramus fracture. Orthopedics is consulted for fracture management. Past Medical History Cardiac Medical History: Reports: Coronary Artery Disease, Hyperlipidema, Hypertension Hematology: Reports: Anemia Past Surgical History Past Surgical History: Reports: Appendectomy, Cholecystectomy, Coronary Stent, Hysterectomy, Orthopedic Surgery Social History Information Source: Patient, [facility] Records Lives with: Alone Smoking Status: Never Smoker Family History Family History: Reviewed & Not Pertinent Parental Family History Reviewed: No Children Family History Reviewed: No Sibling(s) Family History Reviewed.: No Medication/Allergy Home Medications: Iron 18 mg PO 05/06/11 Niacin/Simvastatin [Simcor 500-20 Mg Tablet] 1 each PO 05/06/11 Oxycodone HCl/Acetaminophen [Percocet 5-325 mg Tablet] 1 - 2 tab PO ASDIR PRN # 15 tablet 05/06/11 Telmisartan/Hydrochlorothiazid [Micardis Hct 80-25 Mg Tablet] 1 each PO Tramadol HCl [Ultram 50 mg Tablet] 50 mg PO Q6HP PRN #10 tablet 12/22/13 Hydrocodone/Acetaminophen [[place] 5-325 mg Tablet] 1 tab PO Q6H PRN #10 tablet Allergies/Adverse Reactions: No Known Allergies Allergy (Verified 02/02/17 12:41) Review of Systems All systems: as per PMH Physical Exam Vital Signs: Temp Pulse Resp BP Pulse Ox 36.4 C 58 L 20 152/54 H 98 09/23/17 02:09 09/23/17 02:09 09/23/17 07:01 09/23/17 07:00 09/23/17 07:01 Physical Exam: The patient is an elderly white female lying on a ER gurney. She is minor discomfort when resting. She is alert oriented and appropriate. General appearance: PRESENT: mild distress Head exam: PRESENT: normocephalic Respiratory exam: PRESENT: unlabored Cardiovascular exam: PRESENT: RRR Pulses: PRESENT: +1 pedal pulses bilateral Vascular exam: PRESENT: normal capillary refill GI/Abdominal exam: PRESENT: soft Rectal exam: PRESENT: deferred Extremities exam: PRESENT: other - The patient is tender to palpation over the pubic symphysis. Passive range of motion of both lower extremities causes discomfort. Leg lengths are equal. Distal neurovascular examination is intact. Neurological exam: PRESENT: alert, awake, oriented to person, oriented to place , oriented to time, oriented to situation. ABSENT: motor sensory deficit Psychiatric exam: PRESENT: appropriate affect, normal mood. ABSENT: homicidal ideation, suicidal ideation Skin exam: PRESENT: dry, intact, warm. ABSENT: cyanosis, rash Results Impressions: Chest X-Ray 09/23/17 02:35 IMPRESSION: No acute cardiopulmonary findings. Head CT 09/23/17 02:35 IMPRESSION: No acute findings. Hip/Pelvis X-Ray 09/23/17 02:35 IMPRESSION: Comminuted fracture of the right paracentral pubic symphysis. Status: Imported from PACS Assessment & Plan - Diagnosis (1) Closed fracture of symphysis pubis Qualifiers: Encounter type: initial encounter Laterality: unspecified laterality Qualified Code(s): S32.599A - Other specified fracture of unspecified pubis, initial encounter for closed fracture Is this a current diagnosis for this admission?: Yes Plan: 82-year-old white female with a superior pubic ramus fracture. This represents a stable pelvic fracture but can result in significant discomfort associated with motion. There is no need for surgical intervention. The patient can be mobilized on a as comfort basis. I think this will take weeks unfortunately. - Time Time Spent: 50 to 70 Minutes Anticipated discharge: SNF Within: Other
--- NOTE | 2017-09-23 08:11 | EKG REPORT ---
SEVERITY:- ABNORMAL ECG - SINUS RHYTHM LATERAL INFARCT, AGE INDETERMINATE : Confirmed by: Santo Boswell MD 23-Sep-2017 08:10:57
[2017-09-23] MEDS ORDERED: ACETAMINOPHEN WITH CODEINE #3 TABLET PO PRN (15:22)
[2017-09-23] MEDS ORDERED: CYANOCOBALAMIN (VITAMIN B-12) INJ 1000 MCG/1 ML VIAL IM SCH (15:30)
[2017-09-23] MEDS ORDERED: (PENDING PHARMACY ID) (Telmisartan [Micardis] 80 MG) PO SCH (15:30)
[2017-09-23] MEDS ORDERED: ERGOCALCIFEROL (VITAMIN D2) 50000 UNIT (1.25 MG) CAPSULE PO SCH (16:00)
--- NOTE | 2017-09-23 16:27 | PDOC H&P ---
History of Present Illness Admission Date/PCP: 09/23/17 04:54 TERRENCE KHAN MD History of Present Illness: LINDSEY ART is a 82 year old female, She has history of osteoporosis, she had a unwitnessed fall and she is sustained fracture of the right pubic symphysis of the pubic bone. The circumstances of the fall is not clear there was no antecedent chest pain, shortness of breath, palpitation or syncope though she stated that she probably lost consciousness she came to the emergency room for evaluation, x-ray was done it showed comminuted fracture of the right paracentral pubic symphysis there is no surgical intervention for this fracture, hospital admission was advised because of severe pain she is admitted essentially for pain control and physical therapy Past Medical History Cardiac Medical History: Reports: Coronary Artery Disease, Hyperlipidema, Hypertension Endocrine Medical History: Reports: Other - Osteoporosis Hematology: Reports: Anemia Past Surgical History Past Surgical History: Reports: Appendectomy, Cholecystectomy, Coronary Stent, Hysterectomy, Orthopedic Surgery Social History Lives with: Alone Smoking Status: Never Smoker - Advance Directive Resuscitation Status: Full Code Family History Family History: Reviewed & Not Pertinent Parental Family History Reviewed: Yes Children Family History Reviewed: Yes Sibling(s) Family History Reviewed.: Yes Medication/Allergy Home Medications: Acetaminophen with Codeine [Tylenol #3 Tablet] 1 each PO Q12HP PRN MDD FILLED FOR 5DS 09/23/17 Alendronate Sodium [Fosamax 70 mg Tablet] 70 mg PO MO@1000 09/23/17 Cyanocobalamin (Vitamin B-12) [Vitamin B-12 Inj 1000 Mcg/1 ml Vial] 1,000 mcg IM .MONTHLY 09/23/17 Ergocalciferol (Vitamin D2) [Drisdol 50,000 Unit (1.25MG) Capsule] 50,000 unit PO .QWEEKLY MDD PT COULDN'T REMEMBER THE DAY 09/23/17 Hydrochlorothiazide [Hydrodiuril 12.5 mg Capsule] 12.5 mg PO DAILY MDD COMBO PILL WITH MICARDIS 09/23/17 Omeprazole 40 mg PO DAILY 09/23/17 Telmisartan [Micardis] 80 mg PO DAILY MDD COMBO PILL WITH HCTZ 09/23/17 Zolpidem Tartrate [Ambien 5 mg Tablet] 10 mg PO QHS 09/23/17 Allergies/Adverse Reactions: No Known Allergies Allergy (Verified 02/02/17 12:41) Review of Systems Constitutional: ABSENT: chills, fever(s), headache(s), weight gain, weight loss Eyes: ABSENT: visual disturbances Ears: ABSENT: hearing changes Cardiovascular: ABSENT: chest pain, dyspnea on exertion, edema, orthropnea, palpitations Respiratory: ABSENT: cough, hemoptysis Gastrointestinal: ABSENT: abdominal pain, constipation, diarrhea, hematemesis, hematochezia, nausea, vomiting Genitourinary: ABSENT: dysuria, hematuria Musculoskeletal: PRESENT: back pain, joint swelling Integumentary: ABSENT: rash, wounds Neurological: ABSENT: abnormal gait, abnormal speech, confusion, dizziness, focal weakness, syncope Psychiatric: ABSENT: anxiety, depression, homidical ideation, suicidal ideation Endocrine: ABSENT: cold intolerance, heat intolerance, menstrual abnormalities, polydipsia, polyuria Hematologic/Lymphatic: ABSENT: easy bleeding, easy bruising, lymphadenopathy Physical Exam Vital Signs: Temp Pulse Resp BP Pulse Ox 97.6 F 58 L 21 H 160/64 H 100 09/23/17 02:09 09/23/17 02:09 09/23/17 08:01 09/23/17 08:01 09/23/17 08:01 General appearance: PRESENT: thin Head exam: PRESENT: atraumatic, normocephalic Eye exam: PRESENT: conjunctiva pink, EOMI, PERRLA Ear exam: PRESENT: normal external ear exam Neck exam: PRESENT: full ROM Respiratory exam: PRESENT: clear to auscultation tavia Cardiovascular exam: PRESENT: RRR, +S1, +S2 Pulses: PRESENT: normal dorsalis pedis pul, +2 pedal pulses bilateral Vascular exam: PRESENT: normal capillary refill GI/Abdominal exam: PRESENT: normal bowel sounds, soft Rectal exam: PRESENT: deferred Neurological exam: PRESENT: alert, awake, oriented to person, oriented to place , oriented to time, oriented to situation, CN II-XII grossly intact Psychiatric exam: PRESENT: appropriate affect, normal mood Skin exam: PRESENT: dry, intact, warm Results Impressions: Chest X-Ray 09/23/17 02:35 IMPRESSION: No acute cardiopulmonary findings. Head CT 09/23/17 02:35 IMPRESSION: No acute findings. Hip/Pelvis X-Ray 09/23/17 02:35 IMPRESSION: Comminuted fracture of the right paracentral pubic symphysis. Assessment & Plan - Diagnosis (1) Closed fracture of symphysis pubis Qualifiers: Encounter type: initial encounter Laterality: unspecified laterality Qualified Code(s): S32.599A - Other specified fracture of unspecified pubis, initial encounter for closed fracture Is this a current diagnosis for this admission?: Yes Plan: She is admitted for the management of fracture pubic symphysis (2) Dehydration Is this a current diagnosis for this admission?: Yes (3) Fall Qualifiers: Encounter type: initial encounter Qualified Code(s): W19.XXXA - Unspecified fall, initial encounter Is this a current diagnosis for this admission?: Yes
[2017-09-24] MEDS: OXYCODONE-ACETAMINOPHEN 5-325 MG TABLET PO PRN ×3 (00:12→18:02)
[2017-09-24] MEDS: ZOLPIDEM TARTRATE 5 MG TABLET PO SCH ×2 (00:14→21:43)
[2017-09-24] MEDS: LANSOPRAZOLE 30 MG TAB.RAP.DR PO SCH (06:29)
[2017-09-24] MEDS: ENOXAPARIN SODIUM INJ 40 MG/0.4 ML DISP.SYRIN SUBCUT SCH (09:35)
[2017-09-24] MEDS: LOSARTAN POTASSIUM 50 MG TABLET PO SCH (09:35)
[2017-09-24] MEDS: HYDROCHLOROTHIAZIDE 12.5 MG CAPSULE PO SCH (09:35)
[2017-09-24] MEDS ORDERED: (PENDING PHARMACY ID) (Alendronate Sodium [Fosamax 70 Mg Tablet] 70 MG) PO SCH (10:00)
--- NOTE | 2017-09-24 14:05 | PDOC PROGRESS REPORT ---
Subjective Progress Note for:: 09/24/17 Subjective:: Patient's family at home and have a superior ramus fracture and currently seen by Dr. Pleitez and suggest a medical management Patient still have a pain that required some pain medications She is otherwise denied any chest pain denied any shortness of the breath Patients are asked to regular diet Discussed with the patient's do not want to go to the rehab prefer to go home with the home health and physical therapy Reason For Visit: CLOSED FX OF SYMPHYSIS PUBIS, FALL Physical Exam Vital Signs: Temp Pulse Resp BP Pulse Ox 97.5 F 55 L 18 118/56 L 98 09/24/17 11:17 09/24/17 11:17 09/24/17 11:17 09/24/17 11:17 09/24/17 11:17 Intake & Output 09/23/17 09/24/17 09/25/17 06:59 06:59 06:59 Intake Total 625 Balance 625 Weight 55 kg General appearance: PRESENT: no acute distress, well-developed, well-nourished Head exam: PRESENT: atraumatic, normocephalic Eye exam: PRESENT: conjunctiva pink, EOMI, PERRLA. ABSENT: scleral icterus Ear exam: PRESENT: normal external ear exam Mouth exam: PRESENT: moist, tongue midline Neck exam: PRESENT: full ROM. ABSENT: carotid bruit, JVD, lymphadenopathy, thyromegaly Respiratory exam: PRESENT: clear to auscultation tavia Cardiovascular exam: PRESENT: RRR. ABSENT: diastolic murmur, rubs, systolic murmur Pulses: PRESENT: normal dorsalis pedis pul, +2 pedal pulses bilateral Vascular exam: PRESENT: normal capillary refill GI/Abdominal exam: PRESENT: normal bowel sounds, soft. ABSENT: distended, guarding, mass, organolmegaly, rebound, tenderness Rectal exam: PRESENT: deferred Neurological exam: PRESENT: alert, awake, oriented to person, oriented to place , oriented to time, oriented to situation, CN II-XII grossly intact. ABSENT: motor sensory deficit Psychiatric exam: PRESENT: appropriate affect, normal mood. ABSENT: homicidal ideation, suicidal ideation Skin exam: PRESENT: dry, intact, warm. ABSENT: cyanosis, rash Results Impressions: Chest X-Ray 09/23/17 02:35 IMPRESSION: No acute cardiopulmonary findings. Head CT 09/23/17 02:35 IMPRESSION: No acute findings. Hip/Pelvis X-Ray 09/23/17 02:35 IMPRESSION: Comminuted fracture of the right paracentral pubic symphysis. Assessment & Plan - Diagnosis (1) Closed fracture of symphysis pubis Qualifiers: Encounter type: initial encounter Laterality: unspecified laterality Qualified Code(s): S32.599A - Other specified fracture of unspecified pubis, initial encounter for closed fracture Is this a current diagnosis for this admission?: Yes (2) Hypertension Is this a current diagnosis for this admission?: Yes (3) Anxiety disorder Is this a current diagnosis for this admission?: Yes (4) Dehydration Is this a current diagnosis for this admission?: Yes (5) Fall Qualifiers: Encounter type: initial encounter Qualified Code(s): W19.XXXA - Unspecified fall, initial encounter Is this a current diagnosis for this admission?: Yes - Time Time Spent with patient: 15-24 minutes Medications reviewed and adjusted accordingly: Yes Anticipated discharge: Other Within: Other - Inpatient Certification Medical Necessity: Need Close Monitoring Due to Risk of Patient Decompensation Post Hospital Care: D/C Director Process Improvement Documentation - Plan Summary Plan Summary: Get the physical therapy discussed with the patient about the rehab versus home in patients preferred to go home
[2017-09-25] MEDS: OXYCODONE-ACETAMINOPHEN 5-325 MG TABLET PO PRN ×4 (02:16→20:44)
[2017-09-25] MEDS: LANSOPRAZOLE 30 MG TAB.RAP.DR PO SCH (05:34)
[2017-09-25 06:26] LABS: ABSOLUTE EOSINOPHILS # (AUTO) 0.1 10^3/uL (0.0-0.6); ABSOLUTE LYMPHOCYTES (AUTO) 1.1 10^3/uL (0.5-4.7); ABSOLUTE MONOCYTES (AUTO) 0.4 10^3/uL (0.1-1.4); ABSOLUTE NEUT (AUTO) 2.3 10^3/uL (1.7-8.2); HEMATOCRIT 28.8 % (36.0-47.0); HEMOGLOBIN 10.2 g/dL (12.0-15.5); MEAN CORPUSCULAR HEMOGLOBIN 29.9 pg (27.0-33.4); MEAN CORPUSCULAR HGB CONC 35.3 g/dL (32.0-36.0); MEAN CORPUSCULAR VOLUME 85 fl (80-97); MONOCYTES % (AUTO) 10.3 % (3-13); PLATELET COUNT 198 10^3/uL (150-450); RED CELL DISTRIBUTION WIDTH 13.6 % (11.5-14.0); SEGMENTED NEUTROPHILS % (AUTO) 57.7 % (42-78); TOTAL CELLS COUNTED % (AUTO) 100 %
[2017-09-25 06:50] LABS: ANION GAP 8 (5-19); BLOOD UREA NITROGEN 18 mg/dL (7-20); CARBON DIOXIDE 32 mmol/L (22-30); CHLORIDE 102 mmol/L (98-107); GLUCOSE 88 mg/dL (75-110); POTASSIUM 3.8 mmol/L (3.6-5.0); SODIUM 141.8 mmol/L (137-145)
[2017-09-25] MEDS: ENOXAPARIN SODIUM INJ 40 MG/0.4 ML DISP.SYRIN SUBCUT SCH (09:48)
[2017-09-25] MEDS: LOSARTAN POTASSIUM 50 MG TABLET PO SCH (09:48)
[2017-09-25] MEDS: HYDROCHLOROTHIAZIDE 12.5 MG CAPSULE PO SCH (09:48)
--- NOTE | 2017-09-25 12:41 | PDOC PROGRESS REPORT ---
Subjective Progress Note for:: 09/25/17 Subjective:: Patient is currently doing fair Patient's denied any chest pain denied any shortness of the breath Patients feel like she is unable to go home and wants to go to the rehab Patient's initial CT of the head was negative but patient still feeling some time imbalance and some weakness denied any eye problems Reason For Visit: CLOSED FX OF SYMPHYSIS PUBIS, FALL Physical Exam Vital Signs: Temp Pulse Resp BP Pulse Ox 98.3 F 59 L 16 132/58 H 98 09/25/17 11:50 09/25/17 11:50 09/25/17 11:50 09/25/17 11:50 09/25/17 11:50 Intake & Output 09/24/17 09/25/17 09/26/17 06:59 06:59 06:59 Intake Total 625 750 Output Total 1190 Balance 625 -440 Weight 55 kg General appearance: PRESENT: no acute distress, well-developed, well-nourished Head exam: PRESENT: atraumatic, normocephalic Eye exam: PRESENT: conjunctiva pink, EOMI, PERRLA. ABSENT: scleral icterus Ear exam: PRESENT: normal external ear exam Mouth exam: PRESENT: moist, tongue midline Neck exam: PRESENT: full ROM. ABSENT: carotid bruit, JVD, lymphadenopathy, thyromegaly Respiratory exam: PRESENT: clear to auscultation tavia Cardiovascular exam: PRESENT: RRR. ABSENT: diastolic murmur, rubs, systolic murmur Pulses: PRESENT: normal dorsalis pedis pul, +2 pedal pulses bilateral Vascular exam: PRESENT: normal capillary refill GI/Abdominal exam: PRESENT: normal bowel sounds, soft. ABSENT: distended, guarding, mass, organolmegaly, rebound, tenderness Rectal exam: PRESENT: deferred Extremities exam: ABSENT: pedal edema Musculoskeletal exam: PRESENT: ambulatory Neurological exam: PRESENT: alert, awake, oriented to person, oriented to place , oriented to time, oriented to situation, CN II-XII grossly intact. ABSENT: motor sensory deficit Psychiatric exam: PRESENT: appropriate affect, normal mood. ABSENT: homicidal ideation, suicidal ideation Skin exam: PRESENT: dry, intact, warm. ABSENT: cyanosis, rash Results Laboratory Results: 09/25/17 05:05 09/25/17 05:05 09/25/17 09/25/17 05:05 05:05 WBC 4.0 RBC 3.40 L Hgb 10.2 L Hct 28.8 L MCV 85 MCH 29.9 MCHC 35.3 RDW 13.6 Plt Count 198 Seg Neutrophils % 57.7 Lymphocytes % 28.0 Monocytes % 10.3 Eosinophils % 3.0 Basophils % 1.0 Absolute Neutrophils 2.3 Absolute Lymphocytes 1.1 Absolute Monocytes 0.4 Absolute Eosinophils 0.1 Absolute Basophils 0.0 Sodium 141.8 Potassium 3.8 Chloride 102 Carbon Dioxide 32 H Anion Gap 8 BUN 18 Creatinine 0.70 Est GFR ( Amer) > 60 Est GFR (Non-Af Amer) > 60 Glucose 88 Calcium 9.0 Impressions: Chest X-Ray 09/23/17 02:35 IMPRESSION: No acute cardiopulmonary findings. Head CT 09/23/17 02:35 IMPRESSION: No acute findings. Hip/Pelvis X-Ray 09/23/17 02:35 IMPRESSION: Comminuted fracture of the right paracentral pubic symphysis. Assessment & Plan - Diagnosis (1) Closed fracture of symphysis pubis Qualifiers: Encounter type: initial encounter Laterality: unspecified laterality Qualified Code(s): S32.599A - Other specified fracture of unspecified pubis, initial encounter for closed fracture Is this a current diagnosis for this admission?: Yes Plan: Continues to follow with the Dr. Pleitez and is scheduled to go to the patient on rehab (2) Hypertension Is this a current diagnosis for this admission?: Yes Plan: Currently all stable (3) Anxiety disorder Is this a current diagnosis for this admission?: Yes Plan: Currently stable (4) Dehydration Is this a current diagnosis for this admission?: Yes (5) Fall Qualifiers: Encounter type: initial encounter Qualified Code(s): W19.XXXA - Unspecified fall, initial encounter Is this a current diagnosis for this admission?: Yes Plan: We will get the MRI of the head to further evaluate with this patient's fall and weakness - Time Time Spent with patient: 15-24 minutes Medications reviewed and adjusted accordingly: Yes Anticipated discharge: Acute Rehab Within: Other - Inpatient Certification Medical Necessity: Need Close Monitoring Due to Risk of Patient Decompensation Post Hospital Care: D/C Switchboard Troubleshooter Documentation - Plan Summary Plan Summary: Due to the patient's recent frequent fall and a pubic ramus fracture unable to take care of herself at home needs to go to the rehab for chronic further strengthening the muscles and gait stability
[2017-09-25 16:49] LABS: APPEARANCE,URINE CLEAR; BILIRUBIN,URINE NEGATIVE (NEGATIVE); COLOR,URINE YELLOW; GLUCOSE, URINE NEGATIVE (NEGATIVE); KETONES,URINE TRACE mg/dL (NEGATIVE); LEUKOCYTE ESTERASE,URINE NEGATIVE (NEGATIVE); NITRITE,URINE NEGATIVE (NEGATIVE); PROTEIN,URINE NEGATIVE (NEGATIVE)
[2017-09-25] MEDS: ZOLPIDEM TARTRATE 5 MG TABLET PO SCH (20:44)
[2017-09-26] MEDS: OXYCODONE-ACETAMINOPHEN 5-325 MG TABLET PO PRN ×3 (05:13→19:44)
[2017-09-26] MEDS: LANSOPRAZOLE 30 MG TAB.RAP.DR PO SCH (05:13)
[2017-09-26 06:47] LABS: ANION GAP 9 (5-19); BLOOD UREA NITROGEN 16 mg/dL (7-20); CALCIUM 9.3 mg/dL (8.4-10.2); CARBON DIOXIDE 32 mmol/L (22-30); CHLORIDE 100 mmol/L (98-107); GLUCOSE 88 mg/dL (75-110); POTASSIUM 3.8 mmol/L (3.6-5.0); SODIUM 141.3 mmol/L (137-145)
--- NOTE | 2017-09-26 09:35 | RADIOLOGY REPORT (SQ) ---
EXAM DESCRIPTION: MRI HEAD WITHOUT COMPLETED DATE/TIME: 09/25/2017 6:37 pm REASON FOR STUDY: fall/wekness Z91.81 HISTORY OF FALLING N39.0 URINARY TRACT INFECTION, SITE NOT S PECIFIED COMPARISON: CT brain 09/23/2017, 06/02/2016, 11/26/2015, 10/29/2015 TECHNIQUE: Multiplanar imaging includes non-contrasted T1, T2, FLAIR, and diffusion with ADC map seq uences. Images stored on PACS. LIMITATIONS: None. FINDINGS: ANATOMY: No developmental anomalies. Normal vascular flow voids. Pituitary fossa normal. CSF SPACES: Normal in size and contour for age. No hemorrhage. CEREBRUM: Age-appropriate spotty chronic small vessel ischemic change in the deep hemispheric white m atter. Basal ganglia perivascular spaces and punctate lacunar infarcts, age-appropriate. No MR evidence of acute ischemic change, acute intracranial hemorrhage, mass effect, or midline shift . POSTERIOR FOSSA: No signal alteration. No hemorrhage. No edema, masses or mass effect. Internal cristhian tory canals, cerebello-pontine angles, mastoids normal. DIFFUSION IMAGING: Negative for acute or sub-acute infarction. ORBITS: No masses. Globes post cataract surgery PARANASAL SINUSES: No fluid levels. Mucosa normal. OTHER: No other significant finding. IMPRESSION: No acute findings. Age-appropriate chronic small vessel disease. EVIDENCE OF ACUTE STROKE: NO. TECHNICAL DOCUMENTATION: JOB ID: [id number]- All Rights Reserved Reading location - IP/workstation name: [email or web address]
[2017-09-26] MEDS: ENOXAPARIN SODIUM INJ 40 MG/0.4 ML DISP.SYRIN SUBCUT SCH (10:38)
[2017-09-26] MEDS: HYDROCHLOROTHIAZIDE 12.5 MG CAPSULE PO SCH (10:40)
[2017-09-26] MEDS: LOSARTAN POTASSIUM 50 MG TABLET PO SCH (10:40)
--- NOTE | 2017-09-26 13:25 | PDOC PROGRESS REPORT ---
Subjective Progress Note for:: 09/26/17 Subjective:: Patient is currently doing well Patient MRI of the head is negative for any acute finding and patient urine culture is also negative Patient's pain is getting better and walk with the physical therapy much better Discussed with the patient unfortunately patient's unable to go to the rehab due to the insurance issues will try to make a home health and physical therapy and hopefully discharge tomorrow Reason For Visit: CLOSED FX OF SYMPHYSIS PUBIS, FALL Physical Exam Vital Signs: Temp Pulse Resp BP Pulse Ox 97.5 F 51 L 16 119/49 L 99 09/26/17 07:14 09/26/17 07:14 09/26/17 07:14 09/26/17 07:14 09/26/17 07:14 Intake & Output 09/25/17 09/26/17 09/27/17 06:59 06:59 06:59 Intake Total 750 520 Output Total 1190 500 Balance -440 20 Weight 55.2 kg General appearance: PRESENT: no acute distress, well-developed, well-nourished Head exam: PRESENT: atraumatic, normocephalic Eye exam: PRESENT: conjunctiva pink, EOMI, PERRLA. ABSENT: scleral icterus Ear exam: PRESENT: normal external ear exam Mouth exam: PRESENT: moist, tongue midline Neck exam: PRESENT: full ROM. ABSENT: carotid bruit, JVD, lymphadenopathy, thyromegaly Respiratory exam: PRESENT: clear to auscultation tavia Cardiovascular exam: PRESENT: RRR. ABSENT: diastolic murmur, rubs, systolic murmur Pulses: PRESENT: normal dorsalis pedis pul, +2 pedal pulses bilateral Vascular exam: PRESENT: normal capillary refill GI/Abdominal exam: PRESENT: normal bowel sounds, soft. ABSENT: distended, guarding, mass, organolmegaly, rebound, tenderness Rectal exam: PRESENT: deferred Extremities exam: ABSENT: pedal edema Musculoskeletal exam: PRESENT: ambulatory Neurological exam: PRESENT: alert, awake, oriented to person, oriented to place , oriented to time, oriented to situation, CN II-XII grossly intact. ABSENT: motor sensory deficit Psychiatric exam: PRESENT: appropriate affect, normal mood. ABSENT: homicidal ideation, suicidal ideation Skin exam: PRESENT: dry, intact, warm. ABSENT: cyanosis, rash Results Laboratory Results: 09/25/17 05:05 09/26/17 05:26 09/25/17 09/26/17 16:25 05:26 Sodium 141.3 Potassium 3.8 Chloride 100 Carbon Dioxide 32 H Anion Gap 9 BUN 16 Creatinine 0.67 Est GFR ( Amer) > 60 Est GFR (Non-Af Amer) > 60 Glucose 88 Calcium 9.3 Urine Color YELLOW Urine Appearance CLEAR Urine pH 5.0 Ur Specific [place] 1.010 Urine Protein NEGATIVE Urine Glucose (UA) NEGATIVE Urine Ketones TRACE H Urine Blood NEGATIVE Urine Nitrite NEGATIVE Ur Leukocyte Esterase NEGATIVE Urine WBC (Auto) 1 Urine RBC (Auto) 0 Impressions: Chest X-Ray 09/23/17 02:35 IMPRESSION: No acute cardiopulmonary findings. Head CT 09/23/17 02:35 IMPRESSION: No acute findings. Hip/Pelvis X-Ray 09/23/17 02:35 IMPRESSION: Comminuted fracture of the right paracentral pubic symphysis. Head MRI 09/25/17 00:00 IMPRESSION: No acute findings. Age-appropriate chronic small vessel disease. EVIDENCE OF ACUTE STROKE: NO. Assessment & Plan - Diagnosis (1) Closed fracture of symphysis pubis Qualifiers: Encounter type: initial encounter Laterality: unspecified laterality Qualified Code(s): S32.599A - Other specified fracture of unspecified pubis, initial encounter for closed fracture Is this a current diagnosis for this admission?: Yes Plan: Continues to follow with the Dr. Pleitez and is scheduled to go to the patient on rehab (2) Hypertension Is this a current diagnosis for this admission?: Yes Plan: Currently all stable (3) Anxiety disorder Is this a current diagnosis for this admission?: Yes Plan: Currently stable (4) Dehydration Is this a current diagnosis for this admission?: Yes Plan: All resolved (5) Fall Qualifiers: Encounter type: initial encounter Qualified Code(s): W19.XXXA - Unspecified fall, initial encounter Is this a current diagnosis for this admission?: Yes - Time Time Spent with patient: 15-24 minutes Medications reviewed and adjusted accordingly: Yes Anticipated discharge: Home, Home with Homehealth Within: within 24 hours - Inpatient Certification Medical Necessity: Need Close Monitoring Due to Risk of Patient Decompensation Post Hospital Care: D/C Insulation Inspector Documentation - Plan Summary Plan Summary: Continues to physical therapy try to avoid that as possible as less narcotic medications
[2017-09-26] MEDS: ZOLPIDEM TARTRATE 5 MG TABLET PO SCH (21:20)
[2017-09-27] MEDS: LANSOPRAZOLE 30 MG TAB.RAP.DR PO SCH (04:25)
[2017-09-27 06:51] LABS: ANION GAP 10 (5-19); BLOOD UREA NITROGEN 19 mg/dL (7-20); CALCIUM 9.1 mg/dL (8.4-10.2); CARBON DIOXIDE 34 mmol/L (22-30); CHLORIDE 99 mmol/L (98-107); GLUCOSE 90 mg/dL (75-110); POTASSIUM 3.8 mmol/L (3.6-5.0); SODIUM 143.1 mmol/L (137-145)
--- NOTE | 2017-09-27 08:27 | PDOC PROGRESS REPORT ---
Subjective Progress Note for:: 09/27/17 Subjective:: Patient is currently doing fair according to the nursing staff and the patient' s walk with the hallway with the walker Patient unfortunately not able to go to the rehab due to the insurance conditionsPatient is not eligible for the in patients Discussed with the patient about that in patients agree to go with the home health and physical therapy tomorrow Patient's otherwise denied any chest pain denied any shortness of the breath Reason For Visit: CLOSED FX OF SYMPHYSIS PUBIS, FALL Physical Exam Vital Signs: Temp Pulse Resp BP Pulse Ox 98.2 F 70 18 103/55 L 98 09/26/17 23:11 09/27/17 07:00 09/26/17 23:11 09/26/17 23:11 09/26/17 23:11 Intake & Output 09/26/17 09/27/17 09/28/17 06:59 06:59 06:59 Intake Total 520 670 Output Total 500 500 Balance 20 170 Weight 55.2 kg 53.8 kg General appearance: PRESENT: no acute distress, well-developed, well-nourished Head exam: PRESENT: atraumatic, normocephalic Eye exam: PRESENT: conjunctiva pink, EOMI, PERRLA. ABSENT: scleral icterus Ear exam: PRESENT: normal external ear exam Mouth exam: PRESENT: moist, tongue midline Neck exam: PRESENT: full ROM. ABSENT: carotid bruit, JVD, lymphadenopathy, thyromegaly Respiratory exam: PRESENT: clear to auscultation tavia Cardiovascular exam: PRESENT: RRR. ABSENT: diastolic murmur, rubs, systolic murmur Pulses: PRESENT: normal dorsalis pedis pul, +2 pedal pulses bilateral Vascular exam: PRESENT: normal capillary refill GI/Abdominal exam: PRESENT: normal bowel sounds, soft. ABSENT: distended, guarding, mass, organolmegaly, rebound, tenderness Rectal exam: PRESENT: deferred Neurological exam: PRESENT: alert, awake, oriented to person, oriented to place , oriented to time, oriented to situation, CN II-XII grossly intact. ABSENT: motor sensory deficit Psychiatric exam: PRESENT: appropriate affect, normal mood. ABSENT: homicidal ideation, suicidal ideation Skin exam: PRESENT: dry, intact, warm. ABSENT: cyanosis, rash Results Laboratory Results: 09/25/17 05:05 09/27/17 05:36 09/27/17 05:36 Sodium 143.1 Potassium 3.8 Chloride 99 Carbon Dioxide 34 H Anion Gap 10 BUN 19 Creatinine 0.76 Est GFR ( Amer) > 60 Est GFR (Non-Af Amer) > 60 Glucose 90 Calcium 9.1 Impressions: Chest X-Ray 09/23/17 02:35 IMPRESSION: No acute cardiopulmonary findings. Head CT 09/23/17 02:35 IMPRESSION: No acute findings. Hip/Pelvis X-Ray 09/23/17 02:35 IMPRESSION: Comminuted fracture of the right paracentral pubic symphysis. Head MRI 09/25/17 00:00 IMPRESSION: No acute findings. Age-appropriate chronic small vessel disease. EVIDENCE OF ACUTE STROKE: NO. Assessment & Plan - Diagnosis (1) Closed fracture of symphysis pubis Qualifiers: Encounter type: initial encounter Laterality: unspecified laterality Qualified Code(s): S32.599A - Other specified fracture of unspecified pubis, initial encounter for closed fracture Is this a current diagnosis for this admission?: Yes Plan: Continues to follow with the Dr. Pleitez and is scheduled to go to the patient on rehab (2) Hypertension Is this a current diagnosis for this admission?: Yes Plan: Currently all stable (3) Anxiety disorder Is this a current diagnosis for this admission?: Yes Plan: Currently stable (4) Dehydration Is this a current diagnosis for this admission?: Yes (5) Fall Qualifiers: Encounter type: initial encounter Qualified Code(s): W19.XXXA - Unspecified fall, initial encounter Is this a current diagnosis for this admission?: Yes - Time Time Spent with patient: 15-24 minutes Medications reviewed and adjusted accordingly: Yes Anticipated discharge: Home Within: within 24 hours - Inpatient Certification Medical Necessity: Need Close Monitoring Due to Risk of Patient Decompensation Post Hospital Care: D/C Senior Systems Developer Documentation - Plan Summary Plan Summary: Continues to current medication
[2017-09-27] MEDS: ENOXAPARIN SODIUM INJ 40 MG/0.4 ML DISP.SYRIN SUBCUT SCH (09:26)
[2017-09-27] MEDS: LOSARTAN POTASSIUM 50 MG TABLET PO SCH (09:27)
[2017-09-27] MEDS: HYDROCHLOROTHIAZIDE 12.5 MG CAPSULE PO SCH (09:27)
[2017-09-27] MEDS: OXYCODONE-ACETAMINOPHEN 5-325 MG TABLET PO PRN ×3 (11:06→20:09)
[2017-09-27] MEDS: ZOLPIDEM TARTRATE 5 MG TABLET PO SCH (20:11)
[2017-09-28] MEDS: OXYCODONE-ACETAMINOPHEN 5-325 MG TABLET PO PRN ×2 (06:10→14:11)
[2017-09-28] MEDS: LANSOPRAZOLE 30 MG TAB.RAP.DR PO SCH (06:10)
[2017-09-28] MEDS: LOSARTAN POTASSIUM 50 MG TABLET PO SCH (09:15)
[2017-09-28] MEDS: HYDROCHLOROTHIAZIDE 12.5 MG CAPSULE PO SCH (09:15)
[2017-09-28] MEDS: ENOXAPARIN SODIUM INJ 40 MG/0.4 ML DISP.SYRIN SUBCUT SCH (09:20)
--- NOTE | 2017-09-28 12:55 | PDOC DISCHARGE SUMMARY ---
General - Admit/Disc Date/PCP Admission Date/Primary Care Provider: 09/23/17 04:54 TERRENCE KHAN MD Discharge Date: 09/28/17 - Discharge Diagnosis (1) Closed fracture of symphysis pubis Is this a current diagnosis for this admission?: Yes Summary: Currently stable follow outpatient with Dr. Pleitez (2) Hypertension Is this a current diagnosis for this admission?: Yes Summary: continue current medication except hold the hydrochlorothiazide (3) Anxiety disorder Is this a current diagnosis for this admission?: Yes Summary: The current medication (4) Dehydration Is this a current diagnosis for this admission?: Yes Summary: Currently all resolved (5) Fall Is this a current diagnosis for this admission?: Yes Summary: Fall precaution in patients all the workup is negative - Additional Information Resuscitation Status: Full Code Discharge Diet: Regular Discharge Activity: Activity As Tolerated Prescriptions: Oxycodone HCl/Acetaminophen [Percocet 2.5-325 Mg Tablet] 1 each PO RTQ8HP PRN # 20 tablet PRN Reason: Home Medications: Alendronate Sodium [Fosamax 70 mg Tablet] 70 mg PO MO@1000 09/23/17 Cyanocobalamin (Vitamin B-12) [Vitamin B-12 Inj 1000 Mcg/1 ml Vial] 1,000 mcg IM .MONTHLY 09/23/17 Ergocalciferol (Vitamin D2) [Drisdol 50,000 unit (1.25MG) Capsule] 50,000 unit PO .QWEEKLY MDD PT COULDN'T REMEMBER THE DAY 09/23/17 Hydrochlorothiazide [Hydrodiuril 12.5 mg Capsule] 12.5 mg PO DAILY MDD COMBO PILL WITH MICARDIS 09/23/17 Omeprazole 40 mg PO DAILY 09/23/17 Telmisartan [Micardis] 80 mg PO DAILY MDD COMBO PILL WITH HCTZ 09/23/17 Zolpidem Tartrate [Ambien 5 mg Tablet] 10 mg PO QHS 09/23/17 Oxycodone HCl/Acetaminophen [Percocet 2.5-325 Mg Tablet] 1 each PO RTQ8HP PRN # 20 tablet 09/27/17 History of Present Illness History of Present Illness: LINDSEY ART is a 82 year old female This is a 82-year-old females presented in the emergency department due to the fall and the patient had a pubic ramus fracture and patients live by herself decided to admit for the pain control and is also evaluations Hospital Course Hospital Course: This is a 82-year-old females fall at home present in the emergency department because of the pain and unable to walk patients from the pubic ramus fracture And ortho Consulted and suggest the physical therapy and no need for surgical intervention Patients all blood work an MRI of the head and a urine culture is all negative Patient start on the p.o. pain medications and physical therapy and patients walk with the walker with the physical therapy And also some a lot of anxiety problems due to living by herself and try to send the patient to the rehab but unfortunately patient's unable to qualify for the in patients and patient unfortunately unable to pay money to go to the rehab Discussed with the patient at this point's only options to send home with the home health in physical therapy and all make arrangement including the hospital bed walker and bedside commode Discussed with the patient about the fall precautions follow with the Dr. Pleitez as outpatient Again patient's currently living by herself in a very poor family support according to the patient and we will try our best to get this home health agency when the patient unable to go to the rehab Physical Exam Vital Signs: Temp Pulse Resp BP Pulse Ox 98.3 F 61 16 117/62 100 09/28/17 11:27 09/28/17 11:27 09/28/17 11:27 09/28/17 11:27 09/28/17 11:27 Intake & Output 09/27/17 09/28/17 09/29/17 06:59 06:59 06:59 Intake Total 670 565 Output Total 500 823 Balance 170 -258 Weight 53.8 kg 54.3 kg General appearance: PRESENT: no acute distress, well-developed, well-nourished Head exam: PRESENT: atraumatic, normocephalic Eye exam: PRESENT: conjunctiva pink, EOMI, PERRLA. ABSENT: scleral icterus Ear exam: PRESENT: normal external ear exam Mouth exam: PRESENT: moist, tongue midline Neck exam: PRESENT: full ROM. ABSENT: carotid bruit, JVD, lymphadenopathy, thyromegaly Respiratory exam: PRESENT: clear to auscultation tavia Cardiovascular exam: PRESENT: RRR. ABSENT: diastolic murmur, rubs, systolic murmur Pulses: PRESENT: normal dorsalis pedis pul, +2 pedal pulses bilateral Vascular exam: PRESENT: normal capillary refill GI/Abdominal exam: PRESENT: normal bowel sounds, soft. ABSENT: distended, guarding, mass, organolmegaly, rebound, tenderness Rectal exam: PRESENT: deferred Extremities exam: ABSENT: pedal edema Musculoskeletal exam: PRESENT: ambulatory Neurological exam: PRESENT: alert, awake, oriented to person, oriented to place , oriented to time, oriented to situation, CN II-XII grossly intact. ABSENT: motor sensory deficit Psychiatric exam: PRESENT: appropriate affect, normal mood. ABSENT: homicidal ideation, suicidal ideation Skin exam: PRESENT: dry, intact, warm. ABSENT: cyanosis, rash Results Laboratory Results: 09/25/17 05:05 09/27/17 05:36 09/25/17 16:25 Clean Catch Midstream Urine Culture - Final NO GROWTH 2 DAYS Impressions: Chest X-Ray 09/23/17 02:35 IMPRESSION: No acute cardiopulmonary findings. Head CT 09/23/17 02:35 IMPRESSION: No acute findings. Hip/Pelvis X-Ray 09/23/17 02:35 IMPRESSION: Comminuted fracture of the right paracentral pubic symphysis. Head MRI 09/25/17 00:00 IMPRESSION: No acute findings. Age-appropriate chronic small vessel disease. EVIDENCE OF ACUTE STROKE: NO. Qualifiers - * PATIENT BEING DISCHARGED WITH ANY OF THE FOLLOWING DIAGNOSIS: No VTE patient discharged on overlapping Therapy?: Yes Plan Time Spent: Greater than 30 Minutes - Follow with the Dr. Pleitez and following my office in 1 week and home health and physical therapy all arrange
[2017-09-28 15:25] VITALS: BP 148/54
== END 2017-09-28 15:24 | disposition home health service (06) ==
LOC: ER 01:48 → EH 04:54 → UNDOADMIN 04:54 → INTOOBSV 04:54 → EH 16:14 → 4S 16:14
PROVIDERS: ADMIT Family Medicine; ATTEND Family Medicine
DX: S32.591A Other specified fracture of right pubis, initial encounter for closed fracture (principal); Y92.009 Unspecified place in unspecified non-institutional (private) residence as the place of occurrence of the external cause; I10 Essential (primary) hypertension; F41.9 Anxiety disorder, unspecified; E86.0 Dehydration; W19.XXXA Unspecified fall, initial encounter; I25.2 Old myocardial infarction; Z60.2 Problems related to living alone; I25.10 Atherosclerotic heart disease of native coronary artery without angina pectoris; M81.0 Age-related osteoporosis without current pathological fracture; M54.9 Dorsalgia, unspecified; Z82.49 Family history of ischemic heart disease and other diseases of the circulatory system; Z95.5 Presence of coronary angioplasty implant and graft; Z90.49 Acquired absence of other specified parts of digestive tract; Z79.899 Other long term (current) drug therapy
CPT/HCPCS: 93005; 99285; 36415 ×4; 87086; 85025 ×2; 80048 ×3; 80053; 81001 ×2; 84484; 70551; 71045; 73502; 70450; 93010; 97530 ×2; 97110 ×4; 97116 ×3; 97163; A9270 ×24; J1650 ×5; J7030; G8978; G8979; J3490

== ENCOUNTER → 2017-10-03 | Outpatient (CLI) | payer MEDICARE, OTHER ==
--- NOTE | 2017-10-03 15:11 | RADIOLOGY REPORT (SQ) ---
EXAM DESCRIPTION: HIPS BILATERAL COMPLETED DATE/TIME: 10/03/2017 12:28 pm REASON FOR STUDY: OTH FRACTURE OF RIGHT PUBIS, INIT ENCNTR FOR CLOSED FRACTURE S32.591A OTH FRACTUR E OF RIGHT PUBIS, INIT ENCNTR FOR CLOSED COMPARISON: 09/23/2017 NUMBER OF VIEWS: Two views TECHNIQUE: AP pelvis and additional frog-leg view of both hips. LIMITATIONS: None. FINDINGS: MINERALIZATION: Normal. HIPS: No acute fracture dislocation. Severe degenerative joint changes are present, left more than r ight. PELVIS AND SACRUM: No acute fracture or dislocation. No worrisome bone lesions. PUBIS AND ISCHIUM: Comminuted fracture of the symphysis pubis on the right. Old left pubic fractures . LOWER LUMBAR SPINE: Scoliosis, degenerative joint disease, and spondylosis. SOFT TISSUES: No findings. OTHER: No other significant finding. IMPRESSION: Subacute fracture of the right pubic symphysis. Degenerative joint disease. Lumbar deg enerative changes. TECHNICAL DOCUMENTATION: JOB ID: [id number] [employer]- All Rights Reserved Reading location - IP/workstation name: [email or web address]
== END ==
LOC: OD 11:58
PROVIDERS: ATTEND Family Medicine
DX: S32.591A Other specified fracture of right pubis, initial encounter for closed fracture (principal); X58.XXXA Exposure to other specified factors, initial encounter; M47.896 Other spondylosis, lumbar region
CPT/HCPCS: 73522

== ENCOUNTER → 2017-11-08 | Outpatient (CLI) | payer MEDICARE, OTHER ==
--- NOTE | 2017-11-08 14:50 | RADIOLOGY REPORT (SQ) ---
EXAM DESCRIPTION: MRI LUMBAR SPINE WITHOUT COMPLETED DATE/TIME: 11/08/2017 12:51 pm REASON FOR STUDY: RADICULOPATHY, LUMBAR REGION M54.16 RADICULOPATHY, LUMBAR REGION COMPARISON: None. TECHNIQUE: Sagittal and Axial imaging includes T1, T2, STIR and gradient echo sequences. Coronal T2/ HASTE imaging. LIMITATIONS: None. FINDINGS: VISUALIZED UPPER ABDOMEN: Limited evaluation. No acute or suspicious findings suggested. SEGMENTATION: No transitional anatomy. The lowest well-developed disc space is labeled L5-S1. ALIGNMENT: Lumbar scoliosis convex to the left is identified. VERTEBRAE: Intact. BONE MARROW: Normal. No marrow replacement or reactive changes. DISC SIGNAL: There is multilevel disc degeneration and disc space reduction. POSTERIOR ELEMENTS: Generally intact. No pars defect evident. HARDWARE: None in the spine. CORD AND CONUS: Normal in size and signal intensity. Conus at the appropriate level. SOFT TISSUES: No aortic aneurysm seen. No bulky retroperitoneal adenopathy or mass. No paraspinal mas s or fluid. L1-L2: Symmetric disc bulging is identified and in conjunction with posterior ligamentous hypertrophy and facet arthropathy there is mild spinal stenosis and mild exit foraminal stenosis on the left. L2-L3: Symmetric disc bulging is identified and in conjunction with posterior ligamentous hypertrophy and for set arthropathy there is moderate spinal stenosis and moderate bilateral exit foraminal sten osis. L3-L4: Symmetric disc bulging is identified and in conjunction with posterior ligamentous hypertrophy and facet arthropathy there is severe spinal stenosis and moderate bilateral exit foraminal stenosis . L4-L5: Symmetric disc bulging is identified and in conjunction with posterior ligamentous hypertrophy and for set arthropathy there is moderate spinal stenosis and mild bilateral exit foraminal stenosis . L5-S1: Disc bulging is identified with a central convex component which I cannot exclude as a focal d isc protrusion. No significant spinal stenosis is seen. There is moderate bilateral exit foraminal stenosis. LOWER THORACIC: Incompletely imaged. No stenosis seen. SACRUM: Visualized upper sacrum intact. OTHER: No other significant findings. IMPRESSION: Multilevel disc degeneration with disc space reduction and associated disc bulging. The se changes are most pronounced at the L3-L4 level. Findings as noted above. TECHNICAL DOCUMENTATION: JOB ID: [id number] [employer]- All Rights Reserved Reading location - IP/workstation name: [email or web address]
== END ==
LOC: RAD 12:06
PROVIDERS: ATTEND Anesthesiology Pain Medicine
DX: M54.16 Radiculopathy, lumbar region (principal)
CPT/HCPCS: 72148

== ENCOUNTER 2017-11-21 11:52 | Emergency (ER) | payer MEDICARE, OTHER ==
[2017-11-21] MEDS ORDERED: FENTANYL CITRATE INJ/PF 100 MCG/2 ML AMPUL IV ONE (12:08)
--- NOTE | 2017-11-21 12:52 | RADIOLOGY REPORT (SQ) ---
EXAM DESCRIPTION: HIP LEFT AP/LATERAL COMPLETED DATE/TIME: 11/21/2017 12:40 pm REASON FOR STUDY: pain COMPARISON: 10/03/2017 NUMBER OF VIEWS: Two views. TECHNIQUE: AP pelvis and additional frog-leg view of the left hip. LIMITATIONS: None. FINDINGS: MINERALIZATION: Normal. LEFT HIP: No fracture or dislocation. No worrisome bone lesions. Severe degenerative changes. RIGHT HIP: No fracture or dislocation. No worrisome bone lesions. Severe degenerative changes. PUBIS AND ISCHIUM: Old displaced fractures. PELVIS: Old healing fracture involving the right ilium. SACRUM: No fracture or dislocation. No worrisome bone lesions. LOWER LUMBAR SPINE: No fracture or dislocation. No worrisome bone lesions. Severe degenerative mccracken es. . SOFT TISSUES: No findings. OTHER: No other significant finding. IMPRESSION: 1. Multiple old healing pelvic fractures. No new fractures. 2. Severe degenerative changes involving the lower lumbar spine and both hips. TECHNICAL DOCUMENTATION: JOB ID: [id number] [employer]- All Rights Reserved Reading location - IP/workstation name: [email or web address]
--- NOTE | 2017-11-21 13:41 | ER Document Report ---
ED Hip Pain/Injury - General Mode of Arrival: Medic Information source: Patient TRAVEL OUTSIDE OF THE [place] IN LAST 30 DAYS: No - General Chief Complaint: Hip Pain Stated Complaint: HIP PAIN Time Seen by Provider: 11/21/17 13:12 Notes: Patient is an 82-year-old female who presents to the emergency department today with complaints of left hip pain. Patient states she was recently diagnosed with a left hip fracture that was inoperable. Patient was sent to pain management but she states that "what they are giving me is not helping my pain" . Patient denies any new injury or trauma. Patient states she is here just for pain relief. Patient is somewhat of a poor historian so history is limited. (CHRISTELLE ELISE) - Related Data Allergies/Adverse Reactions: No Known Allergies Allergy (Verified 02/02/17 12:41) Past Medical History - General Information source: Patient, [facility] Records - Social History Smoking Status: Unknown if Ever Smoked Frequency of alcohol use: None Drug Abuse: None Lives with: Family Family History: Reviewed & Not Pertinent Patient has suicidal ideation: No Patient has homicidal ideation: No - Past Medical History Cardiac Medical History: Reports: Hx Coronary Artery Disease, Hx Hypercholesterolemia, Hx Hypertension Renal/ Medical History: Denies: Hx Peritoneal Dialysis Psychiatric Medical History: Reports: Hx Depression Past Surgical History: Reports: Hx Appendectomy, Hx Cholecystectomy, Hx Coronary Stent, Hx Hysterectomy, Hx Orthopedic Surgery - Immunizations Immunizations up to date: Yes Hx Diphtheria, Pertussis, Tetanus Vaccination: Yes Hx Pneumococcal Vaccination: 02/25/10 Review of Systems - Review of Systems Constitutional: No symptoms reported EENT: No symptoms reported Cardiovascular: No symptoms reported Respiratory: No symptoms reported Gastrointestinal: No symptoms reported Genitourinary: No symptoms reported Female Genitourinary: No symptoms reported Musculoskeletal: See HPI, Joint pain - left hip pain Skin: No symptoms reported Hematologic/Lymphatic: No symptoms reported Neurological/Psychological: No symptoms reported -: Yes All other systems reviewed and negative Physical Exam - Vital signs Vitals: Temp Pulse Resp BP Pulse Ox 97.3 F 87 18 144/68 H 99 11/21/17 12:09 11/21/17 12:09 11/21/17 12:09 11/21/17 12:11/21/17 12:09 - Notes Notes: Physical Exam: General: Alert, appears to be in mild amount of pain. HEENT: Normocephalic. Atraumatic. PERRL. Extraocular movements intact. Oropharynx clear. Neck: Supple. Non-tender. Respiratory: No respiratory distress. Clear and equal breath sounds bilaterally. Cardiovascular: Regular rate and rhythm. 1+ dp pulses bilaterally. Abdominal: Normal Inspection. Non-tender. No distension. Normal Bowel Sounds. Back: Non-tender. No deformity or step off. Extremities: Upper extremities: Normal inspection. Normal ROM. Lower extremities: Pain with palpation of left hip and pelvis, pain with active/ passive ROM of left hip, pelvis is stable. Neurological: Normal cognition. AAOx4. Normal speech. Psychological: Normal affect. Normal Mood. Skin: Warm. Dry. Normal color. (CHRISTELLE ELISE) Course - Re-evaluation Re-evalutation: 11/21/17 13:54 Patient presents for concern of acute on chronic right hip pain. X-ray shows no acute findings. She does have severe osteopenia and degenerative disease. No recent falls or trauma no recent cough congestion fevers or illnesses. Patient appears to have pain management clinic as she discussed her pain management group. I discussed that she is to follow-up with them for titration or different medications if it is not helping with her acute on chronic pain. I will provide Voltaren gel to see if this helps with her symptoms and discussed using heating pad several times a day for her symptoms. (KARTHIK TOWNSEND) - Vital Signs Vital signs: Temp Pulse Resp BP Pulse Ox 98.0 F 82 19 132/74 H 99 11/21/17 15:49 11/21/17 15:49 11/21/17 15:49 11/21/17 15:49 11/21/17 15:49 Discharge - Discharge Clinical Impression: Hip pain, chronic Qualifiers: Laterality: right Qualified Code(s): M25.551 - Pain in right hip Disposition: HOME, SELF-CARE Prescriptions: Diclofenac Sodium [Voltaren] 100 gm TP QID PRN #1 tube PRN Reason: Referrals: TERRENCE KHAN MD [Primary Care Provider] - Follow up in 3-5 days Scribe Attestation: 11/22/17 06:33 I personally performed the services described documentation, reviewed and edited the documentation which was dictated to describe my presence, and it accurately records my words and actions. (KARTHIK TOWNSEND) Scribe Documentation - Scribe Written by Piae:: Wilfredo Hanley, 11/21/2017 1521 acting as scribe for :: Josh
[2017-11-21 15:52] VITALS: BP 132/74
== END 2017-11-21 15:53 | disposition home or self-care (01) ==
LOC: ER 11:52
DX: M25.552 Pain in left hip (principal); G89.29 Other chronic pain; Z87.81 Personal history of (healed) traumatic fracture; I25.10 Atherosclerotic heart disease of native coronary artery without angina pectoris; I10 Essential (primary) hypertension
CPT/HCPCS: 99284; 96374; 73502; J3010

== ENCOUNTER → 2017-11-27 | Outpatient (CLI) | payer MEDICARE, OTHER ==
--- NOTE | 2017-11-27 16:34 | RADIOLOGY REPORT (SQ) ---
EXAM DESCRIPTION: VENOUS BILATERAL LOWER COMPLETED DATE/TIME: 11/27/2017 4:25 pm REASON FOR STUDY: LOCALIZED EDEMA R60.0 LOCALIZED EDEMA COMPARISON: None. TECHNIQUE: Dynamic and static funez scale and color images acquired of both lower extremity venous sy stems. Selected spectral images acquired with additional compression and augmentation maneuvers. Imag es stored on PACS. LIMITATIONS: None. FINDINGS: RIGHT LEG COMMON FEMORAL AND FEMORAL: Normal phasicity, compression and augmentation. No visualized echogenic m aterial on funez scale. No defects on color images. POPLITEAL: Normal compression and augmentation. No visualized echogenic material on funez scale. No de fects on color images. CALF VESSELS: Normal compression and augmentation. No visualized echogenic material on funez scale. No defects on color image. GSV AND SSV: Normal compression. No visualized echogenic material on funez scale. No defects on color images. ANY DEEP VENOUS INSUFFICIENCY: No reflux on Valsalva ANY EVIDENCE OF POPLITEAL CYST: No. OTHER: No other significant finding. LEFT LEG COMMON FEMORAL AND FEMORAL: Normal phasicity, compression and augmentation. No visualized echogenic m aterial on funez scale. No defects on color images. POPLITEAL: Normal compression and augmentation. No visualized echogenic material on funez scale. No de fects on color images. CALF VESSELS: Normal compression and augmentation. No visualized echogenic material on funez scale. No defects on color images. GSV AND SSV: Normal compression. No visualized echogenic material on funez scale. No defects on color images. ANY DEEP VENOUS INSUFFICIENCY: No reflux on Valsalva ANY EVIDENCE POPLITEAL CYST: No. OTHER: No other significant finding. IMPRESSION: NO EVIDENCE DVT OR SVT IN EITHER LEG. TECHNICAL DOCUMENTATION: JOB ID: [id number] [employer]- All Rights Reserved Reading location - IP/workstation name: [email or web address]
== END ==
LOC: SP 15:02
PROVIDERS: ATTEND Family Medicine
DX: R60.0 Localized edema (principal)
CPT/HCPCS: 93970

== ENCOUNTER → 2018-01-10 | Outpatient (CLI) | payer MEDICARE, OTHER ==
--- NOTE | 2018-01-10 12:26 | RADIOLOGY REPORT (SQ) ---
EXAM DESCRIPTION: PELVIS AP COMPLETED DATE/TIME: 01/10/2018 12:04 pm REASON FOR STUDY: PRESSURE ULCER OF SACRAL REGION, STAGE 3 L89.153 PRESSURE ULCER OF SACRAL REGION, STAGE 3 COMPARISON: CT abdomen pelvis 08/25/2015 Hip and pelvis films 09/23/2017, 10/03/2017, 11/21/2017 NUMBER OF VIEWS: One view TECHNIQUE: AP Pelvis LIMITATIONS: None. FINDINGS: MINERALIZATION: Osteoporotic HIPS: Advanced osteoarthritis both hips with [id number] appearance, bony sclerosis along the aceta bular roof and weight-bearing femoral heads with subcortical cyst formation and bony spurring. This is stable compared to previous exams. PELVIS, SACRUM, PUBIS AND ISCHIUM: Since the films in August 2017, patient has developed sclerosis an d bony callus along the lower 3rd of the right innominate bone adjacent to the SI joint from healing fracture. There is also sclerosis along the right superior and inferior pubic rami just lateral to t he symphysis pubis. These pelvic fractures are moderately displaced, similar compared to 09/23/2017. Old healed left superior and inferior pubic ramus fractures are present unchanged from CT 08/25/2015. LOWER LUMBAR SPINE: Advanced multilevel degenerative disc changes. SOFT TISSUES: No findings. OTHER: No other significant finding. IMPRESSION: Sclerosis with callus formation along the right innominate bone fracture just lateral to the SI joint Sclerosis with callus formation along the moderately displaced right superior and inferior pubic xochitl s fractures adjacent to the symphysis pubis TECHNICAL DOCUMENTATION: JOB ID: [id number] [employer]- All Rights Reserved Reading location - IP/workstation name: [email or web address]
[2018-01-10 12:33] LABS: ABSOLUTE LYMPHOCYTES (AUTO) 1.7 10^3/uL (0.5-4.7); ABSOLUTE MONOCYTES (AUTO) 0.4 10^3/uL (0.1-1.4); ABSOLUTE NEUT (AUTO) 3.1 10^3/uL (1.7-8.2); BASOPHILS % (AUTO) 0.6 % (0-2); EOSINOPHILS % (AUTO) 0.7 % (0-6); HEMATOCRIT 30.7 % (36.0-47.0); HEMOGLOBIN 10.5 g/dL (12.0-15.5); MEAN CORPUSCULAR HGB CONC 34.3 g/dL (32.0-36.0); MEAN CORPUSCULAR VOLUME 88 fl (80-97); MONOCYTES % (AUTO) 7.4 % (3-13); PLATELET COUNT 156 10^3/uL (150-450); RED CELL DISTRIBUTION WIDTH 15.7 % (11.5-14.0); SEGMENTED NEUTROPHILS % (AUTO) 58.3 % (42-78); TOTAL CELLS COUNTED % (AUTO) 100 %; WHITE BLOOD COUNT 5.3 10^3/uL (4.0-10.5)
[2018-01-10 12:58] LABS: ALANINE AMINOTRANSFERASE 27 U/L (9-52); ALBUMIN 4.1 g/dL (3.5-5.0); ALKALINE PHOSPHATASE 89 U/L (38-126); ANION GAP 11 (5-19); ASPARTATE AMINO TRANSFERASE 23 U/L (14-36); BILIRUBIN,DIRECT 0.2 mg/dL (0.0-0.4); BILIRUBIN,TOTAL 0.7 mg/dL (0.2-1.3); BLOOD UREA NITROGEN 32 mg/dL (7-20); CALCIUM 9.4 mg/dL (8.4-10.2); CARBON DIOXIDE 24 mmol/L (22-30); CHLORIDE 104 mmol/L (98-107); GLUCOSE 89 mg/dL (75-110); POTASSIUM 4.6 mmol/L (3.6-5.0); SODIUM 138.7 mmol/L (137-145); TOTAL PROTEIN 6.9 g/dL (6.3-8.2)
[2018-01-10 13:00] LABS: C-REACTIVE PROTEIN < 5.0 mg/L (<10.0)
[2018-01-10 13:10] LABS: ERYTHROCYTE SEDIMENTATION RATE 26 mm/hr (0-30)
== END ==
LOC: RAD 11:47
PROVIDERS: ATTEND Nurse Practitioner
DX: L89.153 Pressure ulcer of sacral region, stage 3 (principal)
CPT/HCPCS: 36415; 72170; 80053; 85025; 85652; 86140

== ENCOUNTER → 2018-03-01 | Outpatient (CLI) | payer MEDICARE, OTHER ==
--- NOTE | 2018-03-01 19:23 | RADIOLOGY REPORT (SQ) ---
EXAM DESCRIPTION: VENOUS BILATERAL LOWER COMPLETED DATE/TIME: 03/01/2018 7:13 pm REASON FOR STUDY: EDEMA R60.9 EDEMA, UNSPECIFIED COMPARISON: 11/27/2017 TECHNIQUE: Dynamic and static funez scale and color images acquired of both lower extremity venous sy stems. Selected spectral images acquired with additional compression and augmentation maneuvers. Imag es stored on PACS. LIMITATIONS: None. FINDINGS: RIGHT LEG COMMON FEMORAL AND FEMORAL: Normal phasicity, compression and augmentation. No visualized echogenic m aterial on funez scale. No defects on color images. POPLITEAL: Normal compression and augmentation. No visualized echogenic material on funez scale. No de fects on color images. CALF VESSELS: Normal compression and augmentation. No visualized echogenic material on funez scale. No defects on color image. GSV AND SSV: Normal compression. No visualized echogenic material on funez scale. No defects on color images. ANY DEEP VENOUS INSUFFICIENCY: Not evaluated. ANY EVIDENCE OF POPLITEAL CYST: No. OTHER: No other significant finding. LEFT LEG COMMON FEMORAL AND FEMORAL: Normal phasicity, compression and augmentation. No visualized echogenic m aterial on funez scale. No defects on color images. POPLITEAL: Normal compression and augmentation. No visualized echogenic material on funze scale. No de fects on color images. CALF VESSELS: Normal compression and augmentation. No visualized echogenic material on funez scale. No defects on color images. GSV AND SSV: Normal compression. No visualized echogenic material on funez scale. No defects on color images. ANY DEEP VENOUS INSUFFICIENCY: Not evaluated. ANY EVIDENCE POPLITEAL CYST: No. OTHER: No other significant finding. IMPRESSION: NO EVIDENCE DVT OR SVT IN EITHER LEG. TECHNICAL DOCUMENTATION: JOB ID: [id number] [employer]- All Rights Reserved Reading location - IP/workstation name: [email or web address]
== END ==
LOC: SP 16:01
PROVIDERS: ATTEND Family Medicine
DX: R60.0 Localized edema (principal)
CPT/HCPCS: 93970

== ENCOUNTER → 2018-12-25 | Outpatient (CLI) | payer MEDICARE, OTHER ==
--- NOTE | 2018-12-25 11:09 | RADIOLOGY REPORT (SQ) ---
EXAM DESCRIPTION: CT HEAD WITHOUT COMPLETED DATE/TIME: 12/25/2018 10:05 am REASON FOR STUDY: HEADACHE R51 HEADACHE COMPARISON: MR 09/25/2017. CT 09/23/2017 TECHNIQUE: Axial images acquired through the brain without intravenous contrast. Images reviewed wi th bone, brain and subdural windows. Additional sagittal and coronal reconstructions were generated. Images stored on PACS. All CT scanners at this facility use dose modulation, iterative reconstruction, and/or weight based d osing when appropriate to reduce radiation dose to as low as reasonably achievable (ALARA). [facility]: Dose Right [facility]: CareDose [facility]: Dose Right [facility]: Teradose 4D [facility]: [employer] RADIATION DOSE: CT Rad equipment meets quality standard of care and radiation dose reduction techniq ues were employed. CTDIvol: 48.5 mGy. DLP: 855 mGy-cm. mGy. LIMITATIONS: None. FINDINGS: VENTRICLES: Normal size and contour. CEREBRUM: Mild cortical atrophy. No masses. No hemorrhage. No midline shift. No evidence for acut e infarction. Areas of low density in the white matter most likely chronic small vessel ischemic mccall ges. CEREBELLUM: No masses. No hemorrhage. No alteration of density. No evidence for acute infarction. EXTRAAXIAL SPACES: No fluid collections. No masses. ORBITS AND GLOBE: No intra- or extraconal masses. Normal contour of globe without masses. CALVARIUM: No fracture. PARANASAL SINUSES: No fluid or mucosal thickening. SOFT TISSUES: No mass or hematoma. OTHER: No other significant finding. IMPRESSION: MICROVASCULAR ISCHEMIA AND MILD ATROPHY. NO ACUTE IMAGING FINDINGS IN THE BRAIN EVIDENCE OF ACUTE STROKE: NO. COMMENT: Quality ID # [id number]: Final reports with documentation of one or more dose reduction techniques (e.g., Automated exposure control, adjustment of the mA and/or kV according to patient size, use of iterative reconstruction technique) TECHNICAL DOCUMENTATION: JOB ID: [id number] [employer]- All Rights Reserved Reading location - IP/workstation name: [email or web address]
== END ==
LOC: RAD 09:54
PROVIDERS: ATTEND Physician Assistant
DX: R51 Headache (principal)
CPT/HCPCS: 70450

== ENCOUNTER 2019-03-19 07:48 | Emergency (ER) | payer MEDICARE, OTHER ==
--- NOTE | 2019-03-19 08:37 | ER Document Report ---
ED Dizziness/Weakness - General Chief Complaint: Altered Mental Status Stated Complaint: UNRESPONSIVE Time Seen by Provider: 03/19/19 07:59 Primary Care Provider: ROSA DE JESUS PA [NO LOCAL MD] - Follow up as needed Notes: 83-year-old female with coronary artery disease, hypertension, pelvis fracture in 2018 presents to the emergency department with chief complaint of altered mental status. Patient's son and [id number]-mv-[id number] were in town visiting when they were not able to arouse her this morning. She was initially unresponsive to voice and gentle stimulus but regained consciousness. She then got her son a cup of coffee and then started "drifting off". This prompted them to call 911 and come here. Patient states that she took an Ambien at 11 PM last night. Patient states she does not take them all the time. Denies any recent illness, fevers, palpitations, shortness of breath or chest pain, nausea or vomiting, diarrhea, urinary symptoms. TRAVEL OUTSIDE OF THE [place] IN LAST 30 DAYS: No - Related Data Allergies/Adverse Reactions: No Known Allergies Allergy (Verified 03/19/19 08:01) Past Medical History - Social History Smoking Status: Never Smoker Family History: Reviewed & Not Pertinent Patient has suicidal ideation: No Patient has homicidal ideation: No - Past Medical History Cardiac Medical History: Reports: Hx Coronary Artery Disease, Hx Hypercholesterolemia, Hx Hypertension Renal/ Medical History: Denies: Hx Peritoneal Dialysis Psychiatric Medical History: Reports: Hx Depression Past Surgical History: Reports: Hx Appendectomy, Hx Cholecystectomy, Hx Coronary Stent, Hx Hysterectomy, Hx Orthopedic Surgery - Immunizations Immunizations up to date: Yes Hx Diphtheria, Pertussis, Tetanus Vaccination: Yes Hx Pneumococcal Vaccination: 02/25/10 Review of Systems - Review of Systems Constitutional: See HPI EENT: No symptoms reported Cardiovascular: See HPI Respiratory: See HPI Gastrointestinal: See HPI Genitourinary: See HPI Female Genitourinary: No symptoms reported Musculoskeletal: No symptoms reported Skin: No symptoms reported Hematologic/Lymphatic: No symptoms reported Neurological/Psychological: See HPI Physical Exam - Vital signs Vitals: Temp Pulse Resp BP Pulse Ox 98 F 72 12 100/54 L 98 03/19/19 07:59 03/19/19 07:59 03/19/19 07:59 03/19/19 07:59 03/19/19 07:59 - Notes Notes: PHYSICAL EXAMINATION: Reviewed vital signs and charting by RN GENERAL: Alert, interacts well. No acute distress. HEAD: Normocephalic, atraumatic. EYES: Pupils equal and round. Extraocular movements intact. ENT: Oral mucosa moist, tongue midline. NECK: Full range of motion. Trachea midline. LUNGS: Clear to auscultation bilaterally, no wheezes, rales, or rhonchi. No respiratory distress. HEART: Regular rate and rhythm. No murmur ABDOMEN: soft, non-tender. No distention. Bowel sounds present EXTREMITIES: Moves all 4 extremities spontaneously. No edema, No cyanosis. PSYCH: Normal affect, normal mood. NEURO: A &O X 3, normal speech, normal gailt, PERRL, EOMI, SILT, follows commands in all 4 extremities, no gross abnormalities of cranial nerves, no focal neuro deficits, no pronator drift, uemisu-yl-mrix testing normal, rapid alternating hand movements normal, iavd-ko-kyls normal, public works technician strength 5/5 bilateral, 5/5 strength in both proximal and distal upper and lower extremities SKIN: Warm, dry, normal turgor. No rashes or lesions noted. Course - Re-evaluation Re-evalutation: 03/19/19 08:57 Overall well-appearing and per son and [id number] she is at her baseline. I strongly suspect this is secondary to taking Ambien so late last night and I explained to the family that this is a high risk medication for geriatric population. I have low suspicion for CVA but I am going to defer and get a CT head because she had altered mental status due to her age. EKG showed a sinus arrhythmia with a rate of 54 and a QTC of 395, no ST elevations, no stress pattern, no T wave inversions. Plan is to get basic lab work and ensure there is no underlying pathology. 03/19/19 09:30 Received a call from the radiologist to report that there was a 5.5 mm right thalamic bleed. I relayed this information to the family and they are discussing where they would like to transfer. 03/19/19 10:52 I called [facility] who said that they had a greater than 24-hour delay for transfers I called [facility] and spoke with Rio Christopher, neurosurgical ICU PA, who accepted the patient for transfer. - Vital Signs Vital signs: Temp Pulse Resp BP Pulse Ox 98.0 F 61 17 114/79 100 03/19/19 11:43 03/19/19 10:42 03/19/19 11:43 03/19/19 11:43 03/19/19 11:43 - Laboratory Result Diagrams: 03/19/19 07:22 03/19/19 07:22 Laboratory results interpreted by me: 03/19/19 03/19/19 03/19/19 07:22 07:22 10:42 Hgb 11.5 L Hct 34.0 L Est GFR (MDRD) Non-Af 50 L Glucose 111 H Urine Urobilinogen 2.0 H Discharge - Discharge Clinical Impression: Nontraumatic thalamic hemorrhage Altered mental status Qualifiers: Altered mental status type: disorientation Qualified Code(s): R41.0 - Disorientation, unspecified Condition: Stable Disposition: [facility] Referrals: ROSA DE JESUS PA [NO LOCAL MD] - Follow up as needed
[2019-03-19 08:56] LABS: ABSOLUTE EOSINOPHILS # (AUTO) 0.1 10^3/uL (0.0-0.6); ABSOLUTE LYMPHOCYTES (AUTO) 2.3 10^3/uL (0.5-4.7); ABSOLUTE MONOCYTES (AUTO) 0.7 10^3/uL (0.1-1.4); ABSOLUTE NEUT (AUTO) 4.6 10^3/uL (1.7-8.2); ALBUMIN 3.8 g/dL (3.5-5.0); ALKALINE PHOSPHATASE 80 U/L (38-126); ANION GAP 10 (5-19); ASPARTATE AMINO TRANSFERASE 22 U/L (14-36); BASOPHILS % (AUTO) 0.4 % (0-2); BILIRUBIN,DIRECT 0.3 mg/dL (0.0-0.4); BILIRUBIN,TOTAL 1.2 mg/dL (0.2-1.3); BLOOD UREA NITROGEN 18 mg/dL (7-20); CALCIUM 9.3 mg/dL (8.4-10.2); CARBON DIOXIDE 24 mmol/L (22-30); CHLORIDE 105 mmol/L (98-107); EOSINOPHILS % (AUTO) 0.7 % (0-6); GLUCOSE 111 mg/dL (75-110); HEMOGLOBIN 11.5 g/dL (12.0-15.5); MEAN CORPUSCULAR HEMOGLOBIN 29.9 pg (27.0-33.4); MEAN CORPUSCULAR VOLUME 88 fl (80-97); MONOCYTES % (AUTO) 9.3 % (3-13); PLATELET COUNT 189 10^3/uL (150-450); POTASSIUM 4.3 mmol/L (3.6-5.0); RED BLOOD COUNT 3.86 10^6/uL (3.72-5.28); RED CELL DISTRIBUTION WIDTH 13.3 % (11.5-14.0); SEGMENTED NEUTROPHILS % (AUTO) 59.6 % (42-78); TOTAL CELLS COUNTED % (AUTO) 100 %; TOTAL PROTEIN 6.4 g/dL (6.3-8.2); WHITE BLOOD COUNT 7.8 10^3/uL (4.0-10.5)
--- NOTE | 2019-03-19 09:30 | RADIOLOGY REPORT (SQ) ---
EXAM DESCRIPTION: CT HEAD WITHOUT COMPLETED DATE/TIME: 03/19/2019 9:17 am REASON FOR STUDY: AMS COMPARISON: 12/25/2018 TECHNIQUE: Axial images acquired through the brain without intravenous contrast. Images reviewed wi th bone, brain and subdural windows. Additional sagittal and coronal reconstructions were generated. Images stored on PACS. All CT scanners at this facility use dose modulation, iterative reconstruction, and/or weight based d osing when appropriate to reduce radiation dose to as low as reasonably achievable (ALARA). [facility]: Dose Right [facility]: CareDose [facility]: Dose Right [facility]: Teradose 4D [facility]: KeepGo RADIATION DOSE: mGy. LIMITATIONS: None. FINDINGS: VENTRICLES: Prominent. CEREBRUM: Focal area of high attenuation in the right basal ganglia consistent with small hemorrhage. This measures 5.5 mm in diameter. Diffuse decreased attenuation throughout the periventricular whi te matter consistent with small vessel disease. CEREBELLUM: No masses. No hemorrhage. No alteration of density. No evidence for acute infarction. EXTRAAXIAL SPACES: Age-related involutional change. No fluid collections. No masses. ORBITS AND GLOBE: No intra- or extraconal masses. Normal contour of globe without masses. CALVARIUM: No fracture. PARANASAL SINUSES: No fluid or mucosal thickening. SOFT TISSUES: No mass or hematoma. OTHER: No other significant finding. IMPRESSION: 1. Small right basal ganglia hemorrhage. Best demonstrated on series 2, image 18. 2. Atrophy and small-vessel ischemic changes stable from November. EVIDENCE OF ACUTE STROKE: YES. COMMENT: Pertinent findings on the imaging study reported as a CRITICAL RESULT to PB Moore PA-C at09:23 on 03/19/2019. Category of Critical Result: Intracranial hemorrhage. TECHNICAL DOCUMENTATION: JOB ID: [id number] Quality ID # [id number]: Final reports with documentation of one or more dose reduction techniques (e.g., Au tomated exposure control, adjustment of the mA and/or kV according to patient size, use of iterative reconstruction technique) 2010 [employer]- All Rights Reserved Reading location - IP/workstation name: [email or web address]
[2019-03-19 11:10] LABS: APPEARANCE,URINE SLIGHTLY-CLOUDY; BILIRUBIN,URINE NEGATIVE (NEGATIVE); COLOR,URINE YELLOW; GLUCOSE, URINE NEGATIVE (NEGATIVE); KETONES,URINE NEGATIVE (NEGATIVE); LEUKOCYTE ESTERASE,URINE NEGATIVE (NEGATIVE); NITRITE,URINE NEGATIVE (NEGATIVE); PROTEIN,URINE NEGATIVE (NEGATIVE); URINE SPECIFIC GRAVITY 1.015
[2019-03-19] MEDS ORDERED: TRANEXAMIC ACID INJ/PF 1,000 MG/10 ML SDV IV ONE (11:53)
[2019-03-19 11:58] VITALS: BP 114/79
== END 2019-03-19 11:53 | disposition short-term general hospital (02) ==
LOC: ER 07:48
DX: I61.8 Other nontraumatic intracerebral hemorrhage (principal); R41.0 Disorientation, unspecified; I10 Essential (primary) hypertension; I25.10 Atherosclerotic heart disease of native coronary artery without angina pectoris; I49.9 Cardiac arrhythmia, unspecified
CPT/HCPCS: 36415; 70450; 80053; 81001; 83735; 85025; 99285

== ENCOUNTER → 2019-03-28 | Outpatient (CLI) | payer MEDICARE, OTHER ==
--- NOTE | 2019-03-28 10:48 | RADIOLOGY REPORT (SQ) ---
EXAM DESCRIPTION: CT HEAD WITHOUT COMPLETED DATE/TIME: 03/28/2019 10:29 am REASON FOR STUDY: (I61.9)NONTRAUMATIC INTRACEREBRAL HEMORRHAGE, UNSPECIFIED I61.9 NONTRAUMATIC INTR ACEREBRAL HEMORRHAGE, UNSPECIFIED COMPARISON: 03/19/2019 TECHNIQUE: Axial images acquired through the brain without intravenous contrast. Images reviewed wi th bone, brain and subdural windows. Additional sagittal and coronal reconstructions were generated. Images stored on PACS. All CT scanners at this facility use dose modulation, iterative reconstruction, and/or weight based d osing when appropriate to reduce radiation dose to as low as reasonably achievable (ALARA). [facility]: Dose Right [facility]: CareDose [facility]: Dose Right [facility]: Teradose 4D [facility]: [employer]oat RADIATION DOSE: CT Rad equipment meets quality standard of care and radiation dose reduction techniq ues were employed. CTDIvol: 48.8 mGy. DLP: 1030 mGy-cm.mGy. LIMITATIONS: None. FINDINGS: VENTRICLES: Prominent. CEREBRUM: No masses. No hemorrhage. No midline shift. Areas of low density in the white matter mos t likely due to chronic micro-vascular ischemic change. No evidence for acute infarction. CEREBELLUM: No masses. No hemorrhage. No alteration of density. No evidence for acute infarction. EXTRAAXIAL SPACES: Age-related involutional change. No fluid collections. No masses. ORBITS AND GLOBE: No intra- or extraconal masses. Normal contour of globe without masses. CALVARIUM: No fracture. PARANASAL SINUSES: No fluid or mucosal thickening. SOFT TISSUES: No mass or hematoma. OTHER: No other significant finding. IMPRESSION: Resolved right basal ganglia hemorrhage. EVIDENCE OF ACUTE STROKE: NO. TECHNICAL DOCUMENTATION: JOB ID: [id number] Quality ID # [id number]: Final reports with documentation of one or more dose reduction techniques (e.g., Au tomated exposure control, adjustment of the mA and/or kV according to patient size, use of iterative reconstruction technique) 2010 [employer]- All Rights Reserved Reading location - IP/workstation name: [email or web address]
== END ==
LOC: RAD 09:43
PROVIDERS: ATTEND Family Medicine
DX: I61.9 Nontraumatic intracerebral hemorrhage, unspecified (principal)
CPT/HCPCS: 70450

== ENCOUNTER 2019-07-09 09:32 | Day surgery (SDC) | payer MEDICARE, OTHER ==
--- NOTE | 2019-07-04 10:50 | RADIOLOGY REPORT (SQ) ---
EXAM DESCRIPTION: CHEST PA/LATERAL COMPLETED DATE/TIME: 07/04/2019 10:41 am REASON FOR STUDY: PREOP COMPARISON: None. EXAM PARAMETERS: NUMBER OF VIEWS: two views TECHNIQUE: Digital Frontal and Lateral radiographic views of the chest acquired. RADIATION DOSE: NA LIMITATIONS: none FINDINGS: LUNGS AND PLEURA: No opacities, masses or pneumothorax. No pleural effusion. Emphysema. MEDIASTINUM AND HILAR STRUCTURES: No masses or contour abnormalities. HEART AND VASCULAR STRUCTURES: Heart normal size. No evidence for failure. Aortic atherosclerosis. BONES: No acute findings. HARDWARE: Bone anchor within the right humerus. OTHER: No other significant finding. IMPRESSION: Emphysematous change without evidence of acute cardiopulmonary process. TECHNICAL DOCUMENTATION: JOB ID: [id number] [employer]- All Rights Reserved Reading location - IP/workstation name: [email or web address]
[2019-07-04 11:01] LABS: ABSOLUTE LYMPHOCYTES (AUTO) 1.4 10^3/uL (0.5-4.7); ABSOLUTE MONOCYTES (AUTO) 0.3 10^3/uL (0.1-1.4); BASOPHILS % (AUTO) 0.9 % (0-2); EOSINOPHILS % (AUTO) 0.9 % (0-6); HEMATOCRIT 32.5 % (36.0-47.0); HEMOGLOBIN 11.5 g/dL (12.0-15.5); LYMPHOCYTES % (AUTO) 36.7 % (13-45); MEAN CORPUSCULAR HEMOGLOBIN 31.4 pg (27.0-33.4); MEAN CORPUSCULAR HGB CONC 35.3 g/dL (32.0-36.0); MEAN CORPUSCULAR VOLUME 89 fl (80-97); MONOCYTES % (AUTO) 7.5 % (3-13); PLATELET COUNT 140 10^3/uL (150-450); RED BLOOD COUNT 3.66 10^6/uL (3.72-5.28); RED CELL DISTRIBUTION WIDTH 14.1 % (11.5-14.0); TOTAL CELLS COUNTED % (AUTO) 100 %; WHITE BLOOD COUNT 3.8 10^3/uL (4.0-10.5)
[2019-07-04 11:19] LABS: ANION GAP 8 (5-19); BLOOD UREA NITROGEN 22 mg/dL (7-20); CALCIUM 9.2 mg/dL (8.4-10.2); CARBON DIOXIDE 27 mmol/L (22-30); CHLORIDE 103 mmol/L (98-107); GLUCOSE 88 mg/dL (75-110); POTASSIUM 4.5 mmol/L (3.6-5.0)
--- NOTE | 2019-07-04 14:51 | EKG REPORT ---
SEVERITY:- NORMAL ECG - SINUS RHYTHM : Confirmed by: Haydee García MD 04-Jul-2019 14:49:57
[~2019-07-09 09:32] MED LIST: CEFAZOLIN SODIUM 2 GM in DEXTROSE 5%-WATER 100 ML IV PRN; LACTATED RINGERS 1000 ML IV PRN; LIDOCAINE 0.5% INJ-PF (5 MG/ML) 50 ML SDV SUBCUT PRN; MIDAZOLAM 2 MG/2 ML INJ ONE; PROPOFOL INJ 200 MG/20 ML VIAL IV ONE
[2019-07-09] MEDS ORDERED: BUPIVACAINE HCL 0.5%/EPI 1:200000 INJ 1.8 ML CARTRIDGE ONE (11:17)
[2019-07-09] MEDS ORDERED: LIDOCAINE 2%/EPINEPHRINE INJ 1.7 ML CARTRIDGE ONE (11:17)
[2019-07-09] MEDS ORDERED: DEXMEDETOMIDINE INJ 80 MCG/20 ML VIAL IV ONE (11:21)
[2019-07-09] MEDS ORDERED: OXYMETAZOLINE HCL 0.05% NASAL SPRAY 15 ML BOTTLE ONE (12:35)
[2019-07-09] MEDS ORDERED: ONDANSETRON HCL INJ/PF 4 MG/2 ML SDV IV PRN (13:33)
[2019-07-09] MEDS ORDERED: HYDROCODONE/ACETAMINOPHEN 5-325 MG TABLET PO PRN (13:33)
--- NOTE | 2019-07-09 13:37 | Operative Report ---
Operative Report-[facility] Operative Report: Date: 09 July 2019 History: Patient presented to the otolaryngology clinic with a lower lip lesion. 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 Patient presents today for CO2 laser excision/ablation of the lower lip papilloma. Pre-operative diagnosis: Lower lip papilloma measuring 50 x 25 mm in size, left side Post operative diagnosis: Same as above Procedure: 1. CO2 laser excision lower lip papilloma, left 2. CO2 laser ablation lower lip papilloma left Surgeon: Joshua Tavarez MD, FACS, [facility] Anesthesia: MAC Procedure: After receiving informed consent from the patient, she was transported to the operating room. Patient was placed supine on the operating table. After induction via IV medication, the planned excision site on the left side of the lower lip was infiltrated with 2% lidocaine with 100,000 epinephrine. CO2 laser was tested and found to be functioning properly prior to the patient entering the operating room. The excision site was prepped and draped in sterile fashion using saline soaked towels. The laser with a setting of 10 W on continuous pulse was used to excise and ablate the lower lip papilloma. During the ablation process, the sondra was removed using a moist sponge. The papilloma extended past the red line of the lip onto the skin of the lip and onto the labial mucosa extending posteriorly towards the buccal mucosa. The entire extent of the papilloma was removed and/or ablated. Hemostasis was obtained using a defocused beam of the laser. A second look revealed that all of the papilloma had been removed. The wound bed was cleaned with saline and bacitracin was applied. The patient tolerated the procedure well without complications. The patient was returned back to anesthesia successfully awoke the patient in the anesthetic. Estimated blood loss: Minimal Fluids: 100 mL The patient was then transported to the Post Anesthesia Care Unit in stable condition with spontaneous respiration. No complication.
[2019-07-09 14:53] VITALS: BP 125/66
== END 2019-07-09 14:40 | disposition home or self-care (01) ==
LOC: OROUT 09:32
PROVIDERS: ATTEND Otolaryngology
DX: D23.0 Other benign neoplasm of skin of lip (principal); K13.0 Diseases of lips; I20.9 Angina pectoris, unspecified; Z79.899 Other long term (current) drug therapy; Z86.73 Personal history of transient ischemic attack (TIA), and cerebral infarction without residual deficits
CPT/HCPCS: 93005; 36415; 85025; 80048; 71046; 93010; 00300; 40810; J2250; J3490 ×2; J0690; J7060; J2704; 300

== ENCOUNTER 2020-04-11 21:19 | Inpatient (IN) | payer MEDICARE, OTHER ==
--- NOTE | 2020-04-11 23:02 | ER Document Report ---
ED General - General Chief Complaint: Weakness Stated Complaint: CONFUSION Time Seen by Provider: 04/11/20 22:09 Primary Care Provider: TERRENCE KHAN MD [Primary Care Provider] - Follow up as needed TRAVEL OUTSIDE OF THE [place] IN LAST 30 DAYS: No - HPI Context: This is a 84-year-old female with a history of nontraumatic intracranial hemorrhage in March 2019 presenting to the emergency department complaining of sudden onset of slurred speech and right upper extremity weakness. Symptoms started approximately an hour prior to presentation. Upon arrival, slurred speech and right upper extremity weakness in both resolved. Patient was noted to develop a a bradycardic rhythm with a rate in the 40s and some hypotension in route and currently her rate goes from the 40s is up to the 70s and her blood pressure currently is 132/61 with a heart rate of 44. Patient denies having any headache, visual changes, chest pain, shortness of breath, loss of sense of taste or loss of sense of smell, history of COVID-19 infection, known exposure to COVID-19 positive persons or exposure to persons under investigation for COVID-19. Patient denies nausea and vomiting. Looking at the patient's summary, I do not see any beta-isai or calcium channel isai on her list of medications. Patient does have a history of hypertension, elevated cholesterol and coronary artery disease. Associated symptoms: Other - See HPI Exacerbated by: Other - See HPI Relieved by: Other - See HPI - Related Data Allergies/Adverse Reactions: No Known Allergies Allergy (Verified 03/19/19 08:01) Home Medications: losartin, calcium Past Medical History - General Information source: Patient, Emergency Med Personnel - Social History Smoking Status: Never Smoker Frequency of alcohol use: None Drug Abuse: None Family History: Reviewed & Not Pertinent Patient has homicidal ideation: No - Past Medical History Cardiac Medical History: Reports: Hx Coronary Artery Disease - 2005 CARDIAC STENTS , Hx Hypercholesterolemia, Hx Hypertension Denies: Hx Heart Attack Pulmonary Medical History: Denies: Hx Asthma, Hx Bronchitis, Hx COPD, Hx Pneumonia Neurological Medical History: Denies: Hx Cerebrovascular Accident, Hx Seizures Renal/ Medical History: Denies: Hx Peritoneal Dialysis Musculoskeletal Medical History: Reports Hx Arthritis - GENERALIZED Psychiatric Medical History: Reports: Hx Depression Past Surgical History: Reports: Hx Appendectomy, Hx Cholecystectomy, Hx Coronary Stent, Hx Hysterectomy, Hx Orthopedic Surgery - Immunizations Immunizations up to date: Yes Hx Diphtheria, Pertussis, Tetanus Vaccination: Yes Hx Pneumococcal Vaccination: 02/25/10 Review of Systems - Review of Systems Constitutional: No symptoms reported EENT: No symptoms reported Cardiovascular: See HPI Respiratory: No symptoms reported Gastrointestinal: No symptoms reported Genitourinary: No symptoms reported Female Genitourinary: No symptoms reported Musculoskeletal: No symptoms reported Skin: No symptoms reported Hematologic/Lymphatic: No symptoms reported Neurological/Psychological: Loss of power, Speech impairment -: Yes All other systems reviewed and negative Physical Exam - Vital signs Vitals: Resp 12 04/11/20 21:21 - Notes Notes: CONSTITUTIONAL [Vital signs reviewed, Patient appears comfortable, Alert and oriented X 3, Normal stature.] HEAD [Atraumatic, Normocephalic.] EYES [Eyes are normal to inspection, No discharge from eyes, Extraocular muscles intact, Sclera are normal, Conjunctiva are normal.] ENT [External ears normal to inspection, Nose examination normal, mucous membranes are dry.] NECK [Normal ROM, No jugular venous distention, No meningeal signs, ] RESPIRATORY CHEST [Chest is nontender, Breath sounds normal, No respiratory distress.] CARDIOVASCULAR Bradycardia, no murmurs, Normal S1 S2, No rub, No gallop.] ABDOMEN [Abdomen is nontender, No pulsatile masses, No other masses, Bowel sounds normal, No distension, No peritoneal signs, No hernias.] BACK [There is no CVA Tenderness, There is no tenderness to palpation, Normal inspection.] UPPER EXTREMITY [Inspection normal, No cyanosis, No clubbing, No edema, LOWER EXTREMITY [Inspection normal, No cyanosis, No clubbing, No edema, No calf tenderness, NEURO [No focal motor deficits, No focal sensory deficits, Speech normal.] SKIN [Skin is warm, Skin is dry, Skin is normal color.] PSYCHIATRIC [Normal affect. ] - Rectal Tenderness: No Stool: Heme negative Hemorrhoids: None Course - Re-evaluation Re-evalutation: 04/12/20 01:20 Patient is laying in bed, watching TV. She is awake and alert, with normal speech and no weakness in her extremities. Patient was informed of all the results of her ED MSE and was also informed of her diagnoses and plan to admit. After explaining to the patient that she had pancytopenia and what that means, she said that Dr. Khan had already scheduled her to go see the "blood doctor" later this month. All questions were answered. Patient was agreeable to being admitted. 04/12/20 01:44 Patient seems to have had a TIA. She will need an MRI, carotid Doppler, further risk stratification. Patient is also pancytopenic, etiology of which is unknown at this point. Patient is also having episodes of bradycardia with some associated hypotension and has a UTI. I feel that with all these issues going on with the patient, she meets admission criteria. - Vital Signs Vital signs: Temp Pulse Resp BP Pulse Ox 97.3 F 51 L 22 H 146/63 H 99 04/11/20 21:35 04/12/20 00:45 04/12/20 00:45 04/12/20 00:45 04/12/20 00:45 - Laboratory Result Diagrams: 04/11/20 21:34 04/11/20 21:34 Laboratory results interpreted by me: 04/11/20 04/11/20 04/11/20 21:34 21:34 23:15 WBC 2.2 L RBC 2.13 L Hgb 6.6 L Hct 19.7 L RDW 14.3 H Plt Count 67 L Lymph % (Auto) 49.4 H Absolute Neuts (auto) 0.9 L Seg Neutrophils % 40.5 L Potassium 3.4 L Chloride 111 H Carbon Dioxide 21 L BUN 22 H Calcium 7.4 L Total Protein 4.8 L Albumin 2.7 L Urine Protein 30 H Urine Urobilinogen 2.0 H Leukocyte Esterase Rfl SMALL H - Diagnostic Test Radiology reviewed: Reports reviewed - EKG Interpretation by Me Additional EKG results interpreted by me: 04/11/20 23:28 EKG obtained on 04/11/2020 at 2130 hrs. was interpreted by this MD. Findings sinus bradycardia, rate 46, normal axis, MI interval appears to be within normal limits P waves proceed QRS complexes, QRS complexes appear narrow, QTC is 452, there are no obvious patterns of ST segment elevation, depression or reciprocal changes seen to suggest acute myocardial ischemia or infarction. When compared to prior EKG dated 07/04/2019 gross morphology appears unchanged in the right at t hat time was 56. Impression sinus bradycardia with nonspecific ST segments - Consults Dr. King Time consulted: 01:35 - Dr. Ojebuoboh excepted the patient for admission on behalf of Dr. Khan Reason for consultation: 04/12/20 01:43 TIA, bradycardia with hypotension, pancytopenia, UTI Critical Care Note - Critical Care Note Total time excluding time spent on procedures (mins): 120 - Management of patient for reported stroke symptoms, bradycardia with hypotension Discharge - Discharge Clinical Impression: TIA (transient ischemic attack), Bradycardia, Pancytopenia Hypotension Qualifiers: Hypotension type: unspecified hypotension type Qualified Code(s): I95.9 - Hypotension, unspecified UTI (urinary tract infection) Qualifiers: Urinary tract infection type: site unspecified Hematuria presence: without hematuria Qualified Code(s): N39.0 - Urinary tract infection, site not specified Condition: Stable Disposition: ADMITTED INPATIENT Admitting Provider: Ole[facility] Unit Admitted: Telemetry Referrals: TERRENCE KHAN MD [Primary Care Provider] - Follow up as needed
--- NOTE | 2020-04-11 23:02 | ER Document Report ---
ED Alteplase Inc/Exc Criteria - Date/Time patient last known well: Date/Time: 04/11/2020 at 2020 - Date/Time patient arrived in ED: _: 04/11/2020 at 2120 - Inclusion Criteria: 1: Patient presented to ED within 3 hours of acute ischemic stroke symptom onset? -: Yes 2: Did baseline CT exclude intracranial hemorrhage and/or other risk factors? -: Yes 3: Is the age of the patient 18 years of age or greater? -: Yes : If any of the above questions are answered "NO" then stop, patient is not a candidate for Alteplase, : If all of the above questions are answered "YES" then continue with Exclusion Criteria. - Exclusion Criteria: 1: Is there evidence of intracranial hemorrhage on baseline CT? -: No 2: Is there suspicion of subarachnoid hemorrhage (even if CT negative)? -: No 3: Is there a history of serious head trauma, recent previous stroke or WI within 3 months? -: No 4: Does the patient have a clinical presentation consistent with WI or post-WI pericarditis? -: No 5: Is there history of intracranial hemorrhage? -: Yes 6: On repeated measurement is Systolic BP greater than 185mmHg or Diastolic BP greater that 110 mmHg and is aggressive treatment needed to reduce blood pressure to these limits (e.g. constant infusion of an anti-hypertensive)? -: No 7: Did the patient awake with stroke symptoms? -: No 8: Has the patient had a lumbar puncture or an arterial puncture at a non- compressile site within 7 days? -: No 9: With in the last 14 days did the patient have surgery or major trauma? -: No 10: Is the patient or less than 2 weeks? 11: Was there any active bleeding or acute trauma? -: No 12: Does the patient have intracranial neoplasm, arteriovenous malformation or aneurysm? 13: Does the patient have abnormal glucose (less than 50 or greater than 400mg/dl)? Record glucose in Comment. -: No 14: Patient has rapidly improving symptoms at the time Alteplase is to be Administered. -: Yes 15: Does the patient have any risks for bleeding, including but not limited to: a.: Current use of Coumadin with PT greater than 15 seconds or INR greater than 1.7. b.: Current use of Pradaxa (Dabigatran). c.: Heparin administereed within the past 48 hours and PTT elevated. d.: Platelet count less than 100,000/mm. e.: Major surgery or serious trauma within 14 days. f.: Gastrointestinal or gynecological urinary bleeding within 14 days. g.: Myocardial Infarction (WI) within 3 months. -: Yes - platelet count < 100,000 : If the answer to any of the above questions is "YES" then stop, the patient is not a candidate for Alteplase. : If the answer to all of the above questions is "NO" then the patient may be eligible for the Administration of Alteplase. : If the patient is noted to have seizure activity at onset of Stroke symptoms; Consult Neurologist for further evaluation. - The patient is: -: Included and is eligible to receive Alteplase. *Initiate bed placement at higher level of care* --: No Reviewed risks & benefits of thrombolytic therapy: I have reviewed the risks and benefits of thrombolytic therapy with the patient and/or his/her family. -: Excluded and not eligible to receive Alteplase for the above exclusions. --: Yes -: Excluded and not eligible to receive Alteplase for other reasons (specify in comments): - Diagnosis of TIA: -: Patient presented with transient symptoms that are now resolved and no other neurologic findings are currently present. List symptoms in comments. -: Yes - slurred speech, right upper extremity weakness -: Patient is NOT a candidate for tPA. -: Yes -: ____(put name in comment) has been consulted for admission and continued evaluation of risk factor assessment. Comment: Fernando accepted patient on behalf of Dr. Leggett who will continue eval
--- NOTE | 2020-04-11 23:03 | ER Document Report ---
ED NIH Stroke Scale - NIH Stroke Scale When completed:: Before Alteplase *: 1. NIH scale should be completed with appropriate accompanying assessment tools. *: 2. The NIH should reflect what the patient is capable of doing and should not be coached by the clinician. 1a. Level of Consciousness: 0=Alert;keenly responsive -: 1=Drowsy -: 2=Obtunded -: 3=Coma/unresponsive or reflex to noxious stimuli. 1a. Responses: 0 1b. Orientation Questions: a. What month is it? -: b. How old are you? -: 0=Answers both questions correctly. -: 1=Answers one question correctly or patient is intubated or has orotracheal trauma. -: 2=Answers neither question correctly. 1b. Responses: 0 1c. Response to commands: a. Open and close eyes? -: b. Senior Portfolio Manager and release hand? -: Credit is given despite weakness. Demonstration of task is permitted. Substitute command if hands cannot be used. -: 0=Performs both tasks correctly -: 1=Performs one task correctly -: 2=Performs neither task correctly 1c. Responses: 0 2. Gaze: Establish eye contact and instruct patient to "Follow my finger" -: 0=Normal -: 1=Partial gaze palsy. Gaze is abnormal in one or both eyes, but where forced deviation or total gaze paresis is not present. -: 2=Forced deviation or total gaze paresis. 2. Responses: 0 3. Visual Vaughn: Sees fingers in all four quadrants. -: 0=No visual loss. -: 1=Partial hemianopsia. -: 2=Complete hemianopsia. -: 3=Bilateral hemianopsia (including Cortical blindness) 3. Responses: 0 4. Facial Movement: Instruct patient to: -: a. Show me your teeth -: b. Raise your eyebrows -: c. Close your eyes -: d. Smile -: 0=Normal symmetrical movement -: 1=Minor paralysis (flattened nasolabial fold, asymmetry on smiling). -: 2=Partial paralysis (total or near total paralysis of lower face). -: 3=Complete paralysis of upper and lower face 4. Responses: 0 5. Motor functions (left arm): Alternate sides and extend each arm with palms down (90 degrees if sitting or 45 degrees for supine). -: 0=No drift;limb holds for full 10 seconds. -: 1=Drift; limb holds but drifts down before full 10 seconds, but does not hit bed. -: 2=Some effort against gravity; limb cannot get to or maintain position. -: 3=No effort against gravity; limb falls. -: 4=No movement. -: UN=Amputation, joint fusion, explain in comments. 5. Responses (left arm): 0 5. Motor Functions (right arm): Alternate sides and extend each arm with palms down (90 degrees if sitting or 45 degrees for supine). -: 0=No drift;limb holds for full 10 seconds. -: 1=Drift; limb holds but drifts down before full 10 seconds, but does not hit bed. -: 2=Some effort against gravity; limb cannot get to or maintain position. -: 3=No effort against gravity; limb falls. -: 4=No movement. -: UN=Amputation, joint fusion, explain in comments. 5. Responses (right arm): 0 6. Motor Functions (left leg): With patient lying supine, alternate sides and extend each leg (30 degrees always while supine). -: 0=No drift, leg holds position for full 5 seconds -: 1=Drift; leg falls before full 5 seconds but does not hit bed. -: 2=Some effort against gravity, leg falls to bed but some effort against gravity. -: 3=No effort against gravity, leg falls to bed immediately. -: 4=No movement. -: UN=Amputation, joint fusion; explain in comments. 6. Responses (left leg): 0 6. Motor Functions (right leg): With patient lying supine, alternate sides and extend each leg (30 degrees always while supine). -: 0=No drift, leg holds position for full 5 seconds -: 1=Drift; leg falls before full 5 seconds but does not hit bed. -: 2=Some effort against gravity, leg falls to bed but some effort against gravity. -: 3=No effort against gravity, leg falls to bed immediately. -: 4=No movement. -: UN=Amputation, joint fusion; explain in comments. 6. Responses (right leg): 0 7. Limb Ataxia: With eyes open instruct patient to: -: a. "Touch your finger to your nose". -: b. "Touch your heel to your kowalski" -: 0=Absent -: 1=Present in one limb. -: 2=Present in two limbs. -: UN=Amputation or joint fusion; explain in comments. 7. Responses: 0 8. Sensory: Test sensation using pinprick or noxious stimuli. Test as many body parts as possible. -: 0=Normal;no sensory loss -: 1=Mile to moderate sensory loss (patient feels pin prick but is less sharp on affected side). -: 2=Severe or total sensory loss. 8. Responses: 0 9. Best Language: Instruct patient to: -: a. "Describe what you see in this picture." -: b. "Name the items in this picture." -: c. "Read these sentences." -: 0=No aphasia, normal -: 1=Mild to moderate aphasia. -: 2=Severe aphasia -: 3=Mute, global aphasia, no usable speech or auditory comprehension. 9. Responses: 0 10. Articulation, Dysarthia: Instruct patient to: -: "Read these words" or "Repeat these words" -: 0=Normal -: 1=Mild to moderate; patient may slur some words but can be understood without difficulty. -: 2=Severe; patients speech so slurred as to be unintelligible in the absence of dysphasia. -: UN=Intubated or other physical barrier, explain in comments. 10. Responses: 0 11. Extinction or inattention: 0=No abnormality -: 1= Visual, tactile, auditory, spatial, or personal inattention or extinction to bilateral simulation in one or the sensory modalities. -: 2=Profound judd-inattention or judd-inattention to more than one modality; does not recognize own hand. 11. Responses: 0 Total Score: 0
[2020-04-11] MEDS ORDERED: NORMAL SALINE 1000 ML 1,000 ML IV ONE (23:20)
[2020-04-11 23:30] LABS: ABSOLUTE LYMPHOCYTES (AUTO) 1.1 10^3/uL (0.5-4.7); ABSOLUTE MONOCYTES (AUTO) 0.2 10^3/uL (0.1-1.4); ABSOLUTE NEUT (AUTO) 0.9 10^3/uL (1.7-8.2); BASOPHILS % (AUTO) 0.3 % (0-2); EOSINOPHILS % (AUTO) 0.5 % (0-6); HEMATOCRIT 19.7 % (36.0-47.0); LYMPHOCYTES % (AUTO) 49.4 % (13-45); MEAN CORPUSCULAR HEMOGLOBIN 30.9 pg (27.0-33.4); MEAN CORPUSCULAR HGB CONC 33.4 g/dL (32.0-36.0); MEAN CORPUSCULAR VOLUME 93 fl (80-97); MONOCYTES % (AUTO) 9.3 % (3-13); RED BLOOD COUNT 2.13 10^6/uL (3.72-5.28); RED CELL DISTRIBUTION WIDTH 14.3 % (11.5-14.0); SEGMENTED NEUTROPHILS % (AUTO) 40.5 % (42-78); TOTAL CELLS COUNTED % (AUTO) 100 %; WHITE BLOOD COUNT 2.2 10^3/uL (4.0-10.5)
[2020-04-11 23:31] LABS: ALBUMIN 2.7 g/dL (3.5-5.0); ALKALINE PHOSPHATASE 53 U/L (38-126); ANION GAP 8 (5-19); ASPARTATE AMINO TRANSFERASE 21 U/L (14-36); BILIRUBIN,DIRECT 0.1 mg/dL (0.0-0.4); BILIRUBIN,TOTAL 0.3 mg/dL (0.2-1.3); BLOOD UREA NITROGEN 22 mg/dL (7-20); CALCIUM 7.4 mg/dL (8.4-10.2); CARBON DIOXIDE 21 mmol/L (22-30); CHLORIDE 111 mmol/L (98-107); GLUCOSE 91 mg/dL (75-110); POTASSIUM 3.4 mmol/L (3.6-5.0); TOTAL PROTEIN 4.8 g/dL (6.3-8.2)
[2020-04-11 23:32] LABS: PARTIAL THROMBOPLASTIN TIME 31.1 SEC (23.5-35.8); PROTHROMBIN TIME 13.4 SEC (11.4-15.4)
[2020-04-11 23:39] LABS: APPEARANCE,URINE SLIGHTLY-CLOUDY; BILIRUBIN,URINE NEGATIVE (NEGATIVE); COLOR,URINE AMBER; GLUCOSE, URINE NEGATIVE (NEGATIVE); KETONES,URINE NEGATIVE (NEGATIVE); PROTEIN,URINE 30 mg/dL (NEGATIVE); URINE SPECIFIC GRAVITY 1.026
--- NOTE | 2020-04-11 23:41 | RADIOLOGY REPORT (SQ) ---
EXAM DESCRIPTION: XR CHEST 1 VIEW COMPLETED DATE/TME: 04/11/2020 23:21 CLINICAL HISTORY: 84 years, Female, bradycardia COMPARISON: July 04, 2019 NUMBER OF VIEWS: 1 TECHNIQUE: Portable AP upright view of the chest was obtained at 11:15 PM. LIMITATIONS: None. FINDINGS: Heart size is within normal limits. Lungs appear clear of active disease. Aortic calcifications are noted. There is no evidence of pleural effusion or pneumothorax. IMPRESSION: No acute abnormality as above. copyright 2010 [employer]- All Rights Reserved
[2020-04-12 00:13] LABS: PLATELET COUNT 67 10^3/uL (150-450)
[2020-04-12 00:19] LABS: HEMOGLOBIN 6.6 g/dL (12.0-15.5)
--- NOTE | 2020-04-12 00:38 | RADIOLOGY REPORT (SQ) ---
EXAM: CT head without IV contrast CLINICAL DATA: 84 years Female slurred speech and focal weakness TECHNICAL DATA: Multiple axial CT images of the brain were performed followed by sagittal and coronal reconstructed images. The CT study is performed according to ALARA (as low as reasonably achievable) or ALARA/IMAGE GENTLY, with automatic adjustment of mA and/or kV according to patient size. Performed on: 04/12/2020 at 12:01 AM Comparisons: 03/28/2019. FINDINGS: Brain: There is no evidence of mass, acute mass effect or midline shift. There are no acute extra-axial fluid collections. There is no evidence of acute intracranial hemorrhage. The cerebral sulci and ventricles are prominent consistent with mild cerebral volume loss..There are scattered areas of decreased attenuation within the subcortical and periventricular white matter most likely due to mild chronic microangiopathy. There is no evidence of a hyperdense MCA. Paranasal Sinuses and Mastoids: There is no significant mucosal thickening of the paranasal sinuses. The mastoid air cells are clear. Orbits: The orbital contents are grossly unremarkable. Bones: No acute osseous abnormalities are identified. Soft Tissues: No focal soft tissue abnormalities are identified. IMPRESSION: 1. There is no evidence of acute intracranial pathology. 2. Mild cerebral atrophy with findings compatible with chronic microangiopathy. These critical findings were discussed with Dr. Mcgraw on 04/11/2020 at 11:36 PM Central time.
[2020-04-12] MEDS ORDERED: CEFTRIAXONE INJ 1000 MG VIAL IV ONE (01:49)
[2020-04-12] MEDS ORDERED: NORMAL SALINE 250 ML IV PRN ×2 (03:42)
[2020-04-12 06:21] LABS: CREATINE KINASE MB 1.34 ng/mL (<4.55)
[2020-04-12 06:21] LABS: FOLATE 3.69 ng/mL (>2.76); IRON(TIBC) 31.9 ug/dL (37-170)
[2020-04-12 07:28] LABS: TROPONIN I < 0.012 ng/mL
[2020-04-12 08:08] LABS: ABSOLUTE RETICS # 0.022 10^6/uL (0.028-0.122); RETICULOCYTE COUNT (AUTO) 1.04 % (0.66-2.85)
--- NOTE | 2020-04-12 09:58 | RADIOLOGY REPORT (SQ) ---
EXAM DESCRIPTION: MRI HEAD WITHOUT IMAGES COMPLETED DATE/TIME: 04/12/2020 9:29 am REASON FOR STUDY: TIA COMPARISON: MRI of the head without contrast from 09/25/2017. TECHNIQUE: Multiplanar imaging includes non-contrasted T1, T2, FLAIR, and diffusion with ADC map seq uences. Images stored on PACS. LIMITATIONS: None. FINDINGS: There is diffuse age-appropriate cerebral and cerebellar volume loss. The caliber of the ventricles is concordant with the degree of sulcation. There is no restricted diffusion on the DWI. The focus of susceptibility artifact within the right putamen (image 17 of series 9) demonstrates iso - to low signal on the T1 and T2 weighted sequences, low signal on the DWI and high signal on the ADC - this could represent a focus of chronic hemorrhage. There is no acute intracranial hemorrhage, extra-axial fluid collection, mass effect or midline shift . The funez-white matter differentiation is preserved. There is no effacement of cerebral sulci or b hieu subarachnoid cisterns. The intracranial vascular flow voids are preserved. The globes are aphakic. The paranasal sinuses are clear. There is no abnormality of the internal au ditory canals and cerebellopontine angles. IMPRESSION: No acute intracranial abnormality. EVIDENCE OF ACUTE STROKE: NO. TECHNICAL DOCUMENTATION: JOB ID: [id number] 2010 [employer]- All Rights Reserved Reading location - IP/workstation name: [email or web address]
[2020-04-12] MEDS ORDERED: CLOPIDOGREL BISULFATE 75 MG TABLET PO SCH (10:00)
[2020-04-12] MEDS ORDERED: ASPIRIN 325 MG TABLET, ENT COATED PO SCH (10:00)
--- NOTE | 2020-04-12 10:01 | RADIOLOGY REPORT (SQ) ---
EXAM DESCRIPTION: MRA NECK WITHOUT IMAGES COMPLETED DATE/TIME: 04/12/2020 9:29 am REASON FOR STUDY: TIA COMPARISON: CT of the head without contrast from 04/12/2020. TECHNIQUE: Axial 2-D volume acquisition imaging through the extracranial carotid and vertebral arter ies with reformatting using 3-D MIPS. RADIATION DOSE: Incomplete MRA of the neck as the patient was unable to tolerate the exam due to jermaine n. LIMITATIONS: None. FINDINGS: RIGHT CAROTID ARTERY: No high-grade stenosis or occlusion of the carotid arteries. LEFT CAROTID ARTERY: No high-grade stenosis or occlusion of the carotid arteries. VERTEBRAL ARTERY: Nondiagnostic. OTHER: No other findings. IMPRESSION: Incomplete MRI of the neck due to patient's inability to tolerate the exam because of pa in. There is no high-grade stenosis or occlusion of the carotid arteries. COMMENT: Quality ID #[id number]: Measurements of distal internal carotid diameter were used as the denomin ator for stenosis measurement. TECHNICAL DOCUMENTATION: JOB ID: [id number] 2010 [employer]- All Rights Reserved Reading location - IP/workstation name: [email or web address]
--- NOTE | 2020-04-12 10:05 | RADIOLOGY REPORT (SQ) ---
EXAM DESCRIPTION: MRA HEAD WITHOUT IMAGES COMPLETED DATE/TIME: 04/12/2020 9:29 am REASON FOR STUDY: TIA COMPARISON: MRI of the head without contrast from 09/25/[address] of the head without contrast from 04/12/2020 TECHNIQUE: Axial 3-D uifr-al-pzoezp acquisition imaging performed through the brain in the area of t he [place]. Images reformatted using 3-D MIPS. LIMITATIONS: None. FINDINGS: SOURCE IMAGES: Refer to the separate MRI report. 3-D MIP: No aneurysm, occlusion or high-grade stenosis. OTHER: Variant origin of the left ACID STRENGTH INSPECTOR. IMPRESSION: No aneurysm, occlusion or high-grade stenosis of the intracranial arterial vasculature. TECHNICAL DOCUMENTATION: JOB ID: [id number] 2010 [employer]- All Rights Reserved Reading location - IP/workstation name: [email or web address]
[2020-04-12 10:45] LABS: ABSOLUTE LYMPHOCYTES (AUTO) 1.2 10^3/uL (0.5-4.7); ABSOLUTE MONOCYTES (AUTO) 0.2 10^3/uL (0.1-1.4); ABSOLUTE NEUT (AUTO) 2.1 10^3/uL (1.7-8.2); BASOPHILS % (AUTO) 0.7 % (0-2); EOSINOPHILS % (AUTO) 0.6 % (0-6); HEMATOCRIT 34.1 % (36.0-47.0); LYMPHOCYTES % (AUTO) 33.4 % (13-45); MEAN CORPUSCULAR HGB CONC 34.9 g/dL (32.0-36.0); MONOCYTES % (AUTO) 6.8 % (3-13); RED BLOOD COUNT 3.84 10^6/uL (3.72-5.28); RED CELL DISTRIBUTION WIDTH 14.3 % (11.5-14.0); SEGMENTED NEUTROPHILS % (AUTO) 58.5 % (42-78); TOTAL CELLS COUNTED % (AUTO) 100 %; WHITE BLOOD COUNT 3.6 10^3/uL (4.0-10.5)
[2020-04-12 10:55] LABS: HEMOGLOBIN 11.9 g/dL (12.0-15.5); MEAN CORPUSCULAR VOLUME 89 fl (80-97); PLATELET COUNT 88 10^3/uL (150-450)
[2020-04-12 12:50] LABS: CREATINE KINASE MB 1.96 ng/mL (<4.55)
[2020-04-12 12:53] LABS: TROPONIN I < 0.012 ng/mL
--- NOTE | 2020-04-12 13:16 | PDOC CONSULTATION ---
Consultation Consult Date: 04/12/20 Provider Consulted: ALEXANDRA MCARTHUR Consult reason:: Hematology/Oncology consulatation was requested for patient with pancytopenia and neurologic changes. History of Present Illness Admission Date/PCP: 04/12/20 01:58 TERRENCE LEGGETT MD History of Present Illness: LINDSEY ART is a 84 year old female who follows with Dr. Leggett. Over the past 4-6 weeks, her CBC had been abnormal with pancytopenia and no known underlying cause. She was scheduled to see me in consultation as an outpatient. She states that she has a history of TIA in the past and was treated at [facility] for this. She has been feeling "run down" lately and yesterday developed sudden paralysis of her hand. She was also having difficulty speaking. She tried to call her friend for help, but states that she wasn't making any sense and her friend called 911. They broke her door down and brought her to the ED> Currently, she states that she is still tired and "everything is not working right" but she cannot be more specific. She denies chest pain, headache, dyspnea, or recent fevers. She lives by herself with her small dog, Shiraz. Past Medical History Cardiac Medical History: Reports: Coronary Artery Disease - 2004 CARDIAC STENTS , Hyperlipidema, Hypertension Denies: Myocardial Infarction Pulmonary Medical History: Denies: Asthma, Bronchitis, Chronic Obstructive Pulmonary Disease (COPD), Pneumonia Neurological Medical History: Denies: Seizures Musculoskeltal Medical History: Reports: Arthritis - GENERALIZED Psychiatric Medical History: Reports: Depression Hematology: Reports: Anemia - HX Past Surgical History Past Surgical History: Reports: Appendectomy, Cholecystectomy, Coronary Stent, Hysterectomy, Orthopedic Surgery Social History Information Source: Patient Lives with: Alone Smoking Status: Never Smoker Frequency of Alcohol Use: None Hx Recreational Drug Use: No Drugs: None Hx Prescription Drug Abuse: No Past Social History Note: 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 Daughter and son lives in [place]. Family History Parental Family History Reviewed: Yes - Mother of an unknown cancer. Father of MA at age 56. Children Family History Reviewed: Yes Sibling(s) Family History Reviewed.: Yes Medication/Allergy Home Medications: Alendronate Sodium [Fosamax 70 mg Tablet] 70 mg PO MO@1000 09/23/17 Ergocalciferol (Vitamin D2) [Drisdol 50,000 unit (1.25MG) Capsule] 50,000 unit PO .QWEEKLY 09/23/17 Omeprazole 40 mg PO DAILY 09/23/17 Calcium Carbonate [Calcium] 600 mg PO DAILY 07/04/19 Iron 65 mg PO DAILY 07/04/19 Allergies/Adverse Reactions: No Known Allergies Allergy (Verified 03/19/19 08:01) Review of Systems Constitutional: PRESENT: weakness. ABSENT: fever(s), headache(s) Eyes: ABSENT: visual disturbances Ears: ABSENT: hearing changes Nose, Mouth, and Throat: ABSENT: sore throat Cardiovascular: ABSENT: chest pain Respiratory: ABSENT: dyspnea Gastrointestinal: ABSENT: abdominal pain, vomiting Genitourinary: ABSENT: dysuria Integumentary: ABSENT: rash Neurological: PRESENT: as per HPI, abnormal speech, confusion, focal weakness Hematologic/Lymphatic: ABSENT: easy bleeding Physical Exam Vital Signs: Temp Pulse Resp BP Pulse Ox 97.4 F 50 L 18 188/65 H 100 04/12/20 11:01 04/12/20 12:00 04/12/20 12:46 04/12/20 12:46 04/12/20 12:46 Intake & Output 04/11/20 04/12/20 04/13/20 06:59 06:59 06:59 Intake Total 1100 Balance 1100 Weight 54.3 kg 54.3 kg General appearance: PRESENT: no acute distress, thin Head exam: PRESENT: normocephalic Eye exam: PRESENT: EOMI Mouth exam: PRESENT: moist Neck exam: ABSENT: lymphadenopathy, tenderness Respiratory exam: PRESENT: clear to auscultation tavia, unlabored Cardiovascular exam: PRESENT: RRR GI/Abdominal exam: PRESENT: soft. ABSENT: tenderness Extremities exam: ABSENT: pedal edema Musculoskeletal exam: PRESENT: normal inspection Neurological exam: PRESENT: awake, oriented to person, oriented to place, reflexes normal Psychiatric exam: PRESENT: appropriate affect Skin exam: PRESENT: normal color Results Laboratory Results: 04/12/20 10:27 04/11/20 21:34 04/11/20 04/11/20 04/11/20 21:34 21:34 21:34 WBC 2.2 L RBC 2.13 L Hgb 6.6 L Hct 19.7 L MCV 93 MCH 30.9 MCHC 33.4 RDW 14.3 H Plt Count 67 L Seg Neutrophils % 40.5 L Retic Count (auto) 1.04 Sodium 139.8 Potassium 3.4 L Chloride 111 H Carbon Dioxide 21 L Anion Gap 8 BUN 22 H Creatinine 0.89 Est GFR ( Amer) > 60 Glucose 91 Calcium 7.4 L Iron TIBC % Saturation Ferritin Total Bilirubin 0.3 AST 21 Alkaline Phosphatase 53 Total Protein 4.8 L Albumin 2.7 L Vitamin B12 Folate Urine Color Urine Appearance Urine pH Ur Specific [place] Urine Protein Urine Glucose (UA) Urine Ketones Urine Blood Urine RBC (Auto) Blood Type Antibody Screen 04/11/20 04/11/20 04/12/20 21:34 23:15 00:33 WBC RBC Hgb Hct MCV MCH MCHC RDW Plt Count Seg Neutrophils % Retic Count (auto) Sodium Potassium Chloride Carbon Dioxide Anion Gap BUN Creatinine Est GFR ( Amer) Glucose Calcium Iron 31.9 L TIBC 220 L % Saturation 15 Ferritin 392.00 H Total Bilirubin AST Alkaline Phosphatase Total Protein Albumin Vitamin B12 > 1000.0 H Folate 3.69 Urine Color JONATHON Urine Appearance SLIGHTLY-CLOUDY Urine pH 5.0 Ur Specific [place] 1.026 Urine Protein 30 H Urine Glucose (UA) NEGATIVE Urine Ketones NEGATIVE Urine Blood NEGATIVE Urine RBC (Auto) 1 Blood Type A POSITIVE Antibody Screen NEGATIVE 04/12/20 04/12/20 08:30 10:27 WBC Cancelled 3.6 L RBC Cancelled 3.84 Hgb Cancelled 11.9 L D Hct Cancelled 34.1 L MCV Cancelled 89 D MCH Cancelled 31.0 MCHC Cancelled 34.9 RDW Cancelled 14.3 H Plt Count Cancelled 88 L Seg Neutrophils % Cancelled 58.5 Retic Count (auto) Sodium Potassium Chloride Carbon Dioxide Anion Gap BUN Creatinine Est GFR ( Amer) Glucose Calcium Iron TIBC % Saturation Ferritin Total Bilirubin AST Alkaline Phosphatase Total Protein Albumin Vitamin B12 Folate Urine Color Urine Appearance Urine pH Ur Specific [place] Urine Protein Urine Glucose (UA) Urine Ketones Urine Blood Urine RBC (Auto) Blood Type Antibody Screen 04/11/20 04/12/20 04/12/20 21:34 03:49 03:49 Creatine Kinase 29 L CK-MB (CK-2) 1.34 Troponin I < 0.012 < 0.012 04/12/20 04/12/20 12:01 12:10 Creatine Kinase 36 CK-MB (CK-2) 1.96 Troponin I < 0.012 Impressions: Head CT 04/11/20 23:01 IMPRESSION: 1. There is no evidence of acute intracranial pathology. 2. Mild cerebral atrophy with findings compatible with chronic microangiopathy. These critical findings were discussed with Dr. Mcgraw on 04/11/2020 at 11:36 PM Central time. Chest X-Ray 04/11/20 23:04 IMPRESSION: No acute abnormality as above. copyright 2010 [email or web address]- All Rights Reserved Brain MRI with MRA 04/12/20 00:00 IMPRESSION: No aneurysm, occlusion or high-grade stenosis of the intracranial arterial vasculature. Head MRI 04/12/20 00:00 IMPRESSION: No acute intracranial abnormality. EVIDENCE OF ACUTE STROKE: NO. Neck MRA 04/12/20 00:00 IMPRESSION: Incomplete MRI of the neck due to patient's inability to tolerate the exam because of pain. There is no high-grade stenosis or occlusion of the carotid arteries. Status: Image reviewed by me Assessment & Plan - Diagnosis (1) Pancytopenia Is this a current diagnosis for this admission?: Yes Plan: She received 2 units pRBCs. Her ANC is >1, so she is not neutropenic. PLT remain >50 and there is no evidence of active bleeding. There are many possible causes of this. Her iron, B12, folate all appeared normal. This could be medication related. Lipitor is known to cause pancytopenia. I am not sure if it would be safe to try to hold this for a few weeks. This may also be seen in acute infections, but no current fever. She also may have a primary bone marrow problems. Bone marrow biopsy would be recommended if no resolution or other causative agent is found. (2) TIA (transient ischemic attack) Is this a current diagnosis for this admission?: Yes Plan: As per primary team. I am OK with restarting plavix or ASA if indicated. - Plan Summary Plan Summary: I will continue to follow her. Thank you for this consultation. Please feel free to call with any concerns.
--- NOTE | 2020-04-12 13:33 | PDOC H&P ---
History of Present Illness Admission Date/PCP: 04/12/20 01:58 TERRENCE KHAN MD Patient complains of: slurred spech and weakness History of Present Illness: LINDSEY ART is a 84 year old female This 84-year-old female's with a history of the hypertensions osteoarthritis osteoporosis history of the intracranial hemorrhage and history ofAtrial flutter endotracheal bradycardia syndromes admitting in the [facility] in February 2019 because of the intracranial hemorrhage subsequently patient seen by Dr. Vale cloth booker for the tachybradycardia syndromes not a candidate for at the time any pacemaker on anticoagulation History of the anemia and vitamin B12 deficiency and used to see Dr. Segura in the past see Dr. Arana came today's with a complaining of for slurred speech and right-sided weakness started 1 hour before in the emergency department initial CT of the head was negative patient's also found a pancytopenia with a platelet is 67 not a candidate for any TPA but patient's symptoms is all resolved When I saw the patient alert awake oriented no acute symptoms Patient's subsequent MRI and MRA of the head was negative for any acute finding Patient received 1 unit of the blood patient hemoglobin goes to up to 11 not sure about 6.7 was correct number Patient's denied any blood in the stools no black stools in the stool guaiac test is negative Patient's denied any chest pain no short of breath The patient is a very vague complainer very poor historians Past Medical History Cardiac Medical History: Reports: Coronary Artery Disease - 2004 CARDIAC STENTS , Hyperlipidema, Hypertension, Other Denies: Myocardial Infarction Pulmonary Medical History: Denies: Asthma, Bronchitis, Chronic Obstructive Pulmonary Disease (COPD), Pneumonia Neurological Medical History: Reports: Ischemic CVA Denies: Seizures Musculoskeltal Medical History: Reports: Arthritis - GENERALIZED Psychiatric Medical History: Reports: Depression, General Anxiety Disorder Hematology: Reports: Anemia - HX Past Surgical History Past Surgical History: Reports: Appendectomy, Cholecystectomy, Coronary Stent, Hysterectomy, Orthopedic Surgery Social History Information Source: Patient Smoking Status: Never Smoker Frequency of Alcohol Use: None Hx Recreational Drug Use: No Drugs: None Hx Prescription Drug Abuse: No Family History Family History: Reviewed & Not Pertinent Parental Family History Reviewed: Yes Children Family History Reviewed: Yes Sibling(s) Family History Reviewed.: Yes Medication/Allergy Home Medications: Alendronate Sodium [Fosamax 70 mg Tablet] 70 mg PO MO@1000 09/23/17 Ergocalciferol (Vitamin D2) [Drisdol 50,000 unit (1.25MG) Capsule] 50,000 unit PO .QWEEKLY 09/23/17 Omeprazole 40 mg PO DAILY 09/23/17 Calcium Carbonate [Calcium] 600 mg PO DAILY 07/04/19 Iron 65 mg PO DAILY 07/04/19 Allergies/Adverse Reactions: No Known Allergies Allergy (Verified 03/19/19 08:01) Review of Systems Constitutional: PRESENT: fatigue. ABSENT: chills, fever(s), headache(s), weight gain, weight loss Eyes: ABSENT: visual disturbances Ears: ABSENT: hearing changes Cardiovascular: ABSENT: chest pain, dyspnea on exertion, edema, orthropnea, palpitations Respiratory: ABSENT: cough, hemoptysis Gastrointestinal: ABSENT: abdominal pain, constipation, diarrhea, hematemesis, hematochezia, nausea, vomiting Genitourinary: ABSENT: dysuria, hematuria Musculoskeletal: ABSENT: joint swelling Integumentary: ABSENT: rash, wounds Neurological: ABSENT: abnormal gait, abnormal speech, confusion, dizziness, focal weakness, syncope Psychiatric: ABSENT: anxiety, depression, homidical ideation, suicidal ideation Endocrine: ABSENT: cold intolerance, heat intolerance, menstrual abnormalities, polydipsia, polyuria Hematologic/Lymphatic: ABSENT: easy bleeding, easy bruising, lymphadenopathy Physical Exam Vital Signs: Temp Pulse Resp BP Pulse Ox 97.4 F 50 L 18 188/65 H 100 04/12/20 11:01 04/12/20 12:00 04/12/20 12:46 04/12/20 12:46 04/12/20 12:46 Intake & Output 04/11/20 04/12/20 04/13/20 06:59 06:59 06:59 Intake Total 1100 Balance 1100 Weight 54.3 kg 54.3 kg General appearance: PRESENT: no acute distress, well-developed, well-nourished Head exam: PRESENT: atraumatic, normocephalic Eye exam: PRESENT: conjunctiva pink, EOMI, PERRLA. ABSENT: scleral icterus Ear exam: PRESENT: normal external ear exam Mouth exam: PRESENT: moist, tongue midline Neck exam: PRESENT: full ROM. ABSENT: carotid bruit, JVD, lymphadenopathy, thyromegaly Respiratory exam: PRESENT: clear to auscultation tavia Cardiovascular exam: PRESENT: RRR. ABSENT: diastolic murmur, rubs, systolic murmur Pulses: PRESENT: normal dorsalis pedis pul, +2 pedal pulses bilateral Vascular exam: PRESENT: normal capillary refill GI/Abdominal exam: PRESENT: normal bowel sounds, soft. ABSENT: distended, guarding, mass, organolmegaly, rebound, tenderness Rectal exam: PRESENT: deferred Neurological exam: PRESENT: alert, awake, oriented to person, oriented to place, oriented to time, oriented to situation, reflexes normal, CN II-XII grossly intact. ABSENT: motor sensory deficit Psychiatric exam: PRESENT: appropriate affect, normal mood. ABSENT: homicidal ideation, suicidal ideation Skin exam: PRESENT: dry, intact, warm. ABSENT: cyanosis, rash Results Laboratory Results: 04/12/20 10:27 04/11/20 21:34 04/11/20 04/11/20 04/11/20 21:34 21:34 21:34 WBC 2.2 L RBC 2.13 L Hgb 6.6 L Hct 19.7 L MCV 93 MCH 30.9 MCHC 33.4 RDW 14.3 H Plt Count 67 L Seg Neutrophils % 40.5 L Retic Count (auto) 1.04 Sodium 139.8 Potassium 3.4 L Chloride 111 H Carbon Dioxide 21 L Anion Gap 8 BUN 22 H Creatinine 0.89 Est GFR ( Amer) > 60 Glucose 91 Calcium 7.4 L Iron TIBC % Saturation Ferritin Total Bilirubin 0.3 AST 21 Alkaline Phosphatase 53 Total Protein 4.8 L Albumin 2.7 L Vitamin B12 Folate Urine Color Urine Appearance Urine pH Ur Specific [place] Urine Protein Urine Glucose (UA) Urine Ketones Urine Blood Urine RBC (Auto) Blood Type Antibody Screen 04/11/20 04/11/20 04/12/20 21:34 23:15 00:33 WBC RBC Hgb Hct MCV MCH MCHC RDW Plt Count Seg Neutrophils % Retic Count (auto) Sodium Potassium Chloride Carbon Dioxide Anion Gap BUN Creatinine Est GFR ( Amer) Glucose Calcium Iron 31.9 L TIBC 220 L % Saturation 15 Ferritin 392.00 H Total Bilirubin AST Alkaline Phosphatase Total Protein Albumin Vitamin B12 > 1000.0 H Folate 3.69 Urine Color JONATHON Urine Appearance SLIGHTLY-CLOUDY Urine pH 5.0 Ur Specific [place] 1.026 Urine Protein 30 H Urine Glucose (UA) NEGATIVE Urine Ketones NEGATIVE Urine Blood NEGATIVE Urine RBC (Auto) 1 Blood Type A POSITIVE Antibody Screen NEGATIVE 04/12/20 04/12/20 08:30 10:27 WBC Cancelled 3.6 L RBC Cancelled 3.84 Hgb Cancelled 11.9 L D Hct Cancelled 34.1 L MCV Cancelled 89 D MCH Cancelled 31.0 MCHC Cancelled 34.9 RDW Cancelled 14.3 H Plt Count Cancelled 88 L Seg Neutrophils % Cancelled 58.5 Retic Count (auto) Sodium Potassium Chloride Carbon Dioxide Anion Gap BUN Creatinine Est GFR ( Amer) Glucose Calcium Iron TIBC % Saturation Ferritin Total Bilirubin AST Alkaline Phosphatase Total Protein Albumin Vitamin B12 Folate Urine Color Urine Appearance Urine pH Ur Specific [place] Urine Protein Urine Glucose (UA) Urine Ketones Urine Blood Urine RBC (Auto) Blood Type Antibody Screen 04/11/20 04/12/20 04/12/20 21:34 03:49 03:49 Creatine Kinase 29 L CK-MB (CK-2) 1.34 Troponin I < 0.012 < 0.012 04/12/20 04/12/20 12:01 12:10 Creatine Kinase 36 CK-MB (CK-2) 1.96 Troponin I < 0.012 Impressions: Head CT 04/11/20 23:01 IMPRESSION: 1. There is no evidence of acute intracranial pathology. 2. Mild cerebral atrophy with findings compatible with chronic microangiopathy. These critical findings were discussed with Dr. Mcgraw on 04/11/2020 at 11:36 PM Central time. Chest X-Ray 04/11/20 23:04 IMPRESSION: No acute abnormality as above. copyright 2010 [employer]- All Rights Reserved Brain MRI with MRA 04/12/20 00:00 IMPRESSION: No aneurysm, occlusion or high-grade stenosis of the intracranial arterial vasculature. Head MRI 04/12/20 00:00 IMPRESSION: No acute intracranial abnormality. EVIDENCE OF ACUTE STROKE: NO. Neck MRA 04/12/20 00:00 IMPRESSION: Incomplete MRI of the neck due to patient's inability to tolerate the exam because of pain. There is no high-grade stenosis or occlusion of the carotid arteries. Assessment & Plan - Diagnosis (1) TIA (transient ischemic attack) Is this a current diagnosis for this admission?: Yes Plan: We will get the physical therapy evaluations patient currently not candidate for any aspirin Plavix due to thrombocytopenia and pancytopenia (2) History of intracranial hemorrhage Is this a current diagnosis for this admission?: No (3) History of cerebrovascular disease Is this a current diagnosis for this admission?: Yes (4) Vitamin B 12 deficiency Is this a current diagnosis for this admission?: Yes Plan: Continues on vitamin B12 tablets daily patient received injection also (5) Bradycardia Is this a current diagnosis for this admission?: Yes Plan: Patient is currently not taking any beta-isai and not taking any calcium channel isai discussed with the patient's cardiology Dr. Vale will get the echocardiogram further evaluate (6) Pancytopenia Is this a current diagnosis for this admission?: Yes Plan: We will consult hematology for further evaluations patient received a 1 unit of blood already (7) Anxiety disorder Qualifiers: Anxiety disorder type: generalized anxiety disorder Qualified Code(s): F41. 1 - Generalized anxiety disorder Is this a current diagnosis for this admission?: Yes Plan: Continues to BuSpar 5 mg p.o. every 8 - Time Time Spent: 30 to 50 Minutes Medications reviewed and adjusted accordingly: Yes Anticipated Discharge Disposition: Home with Home Health Anticipated Discharge Timeframe: within 72 hours - Inpatient Certification Based on my medical assessment, after consideration of the patient's comorbidities, presenting symptoms, or acuity I expect that the services needed warrant INPATIENT care.: Yes I certify that my determination is in accordance with my understanding of Medicare's requirements for reasonable and necessary INPATIENT services [42 CFR 412.3e].: Yes Medical Necessity: Significant Comorbidiites Make Outpatient Treatment Too Risky, Need For Continuous Telemetry Monitoring, Need for Neurological Checks Post Hospital Care: D/C Heel Brusher Documentation - Plan Summary Plan Summary: Admit the patient in IMCU Consult the hematology and oncology for further evaluation about pancytopenia Consult the cardiology Dr. Vale who saw the patient in the past regarding the flutter and bradycardia Physical therapy evaluations
--- NOTE | 2020-04-12 14:31 | PDOC CONSULTATION ---
Consultation Consult Date: 04/12/20 Attending physician:: TERRENCE KHAN Provider Consulted: NOE FLANNERY Consult reason:: Bradycardia History of Present Illness Admission Date/PCP: 04/12/20 01:58 TERRENCE KHAN MD Patient complains of: Weakness History of Present Illness: LINDSEY ART is a 84 year old female With the following active problems 1. Coronary artery disease 2. Systemic hypertension 3. Dyslipidemia 4. CVA 5. Paroxysmal atrial fibrillation Patient with problems as above who had a intracranial hemorrhage at [facility] previously. No intervention was performed and she was managed conservatively at that time. Due to her atrial fibrillation patient was referred to me. I had seen her in the office at that time. We performed ambulatory cardiac monitoring which showed an average heart rate of 61 bpm. There were probable asymptomatic pauses in the vicinity of 3 seconds which were nocturnal and unlikely to be symptomatic. Since a definite correlation between heart rate and symptoms was not established permanent pacing was not pursued at that time. Patient since then has been diagnosed with pancytopenia. She appears to be quite frail and was admitted again this time with TIA symptoms. She was noted to be bradycardic with heart rates in the low 40s. At the time of my evaluation patient only endorses weakness as a symptom. She also admits to some back pain. Review of systems as above. Full 11 review of systems was asked. Pertinent positives noted here in the HPI all other systems are negative. Past Medical History Cardiac Medical History: Reports: Coronary Artery Disease - 2004 CARDIAC STENTS , Hyperlipidema, Hypertension, Other Denies: Myocardial Infarction Pulmonary Medical History: Denies: Asthma, Bronchitis, Chronic Obstructive Pulmonary Disease (COPD), Pneumonia Neurological Medical History: Reports: Ischemic CVA Denies: Seizures Musculoskeltal Medical History: Reports: Arthritis - GENERALIZED Psychiatric Medical History: Reports: Depression, General Anxiety Disorder Hematology: Reports: Anemia - HX Past Surgical History Past Surgical History: Reports: Appendectomy, Cholecystectomy, Coronary Stent, Hysterectomy, Orthopedic Surgery Social History Lives with: Alone Smoking Status: Never Smoker Frequency of Alcohol Use: None Hx Recreational Drug Use: No Drugs: None Hx Prescription Drug Abuse: No Family History Family History: Reviewed & Not Pertinent Parental Family History Reviewed: Yes - No familial illnesses no familial illnesses Children Family History Reviewed: NA Sibling(s) Family History Reviewed.: NA Medication/Allergy Home Medications: Calcium Carbonate [Calcium] 1,200 mg PO DAILY 07/04/19 Brinzolamide/Brimonidine Tart [Simbrinza 1%-0.2% Eye Drops] 1 drop OD BID 04/12/20 Ergocalciferol (Vitamin D2) [Drisdol 50,000 unit (1.25MG) Capsule] 50,000 unit PO MO 04/12/20 Ferrous Sulfate [Feosol 325 mg Tablet] 325 mg PO DAILY 04/12/20 Ibandronate Sodium [Boniva] 150 mg PO .MONTHLY 04/12/20 Losartan Potassium [Cozaar 50 mg Tablet] 50 mg PO DAILY 04/12/20 Omeprazole 20 mg PO DAILY 04/12/20 Valacyclovir HCl [Valtrex 500 mg Tablet] 500 mg PO DAILY 04/12/20 Allergies/Adverse Reactions: No Known Allergies Allergy (Verified 03/19/19 08:01) Review of Systems Constitutional: PRESENT: weight loss Ears: PRESENT: as per HPI Cardiovascular: ABSENT: as per HPI, chest pain, dyspnea on exertion, edema, orthropnea, palpitations, other Respiratory: ABSENT: as per HPI, cough, dyspnea, hemoptysis, sputum, other Musculoskeletal: PRESENT: muscle weakness Neurological: PRESENT: focal weakness, weakness Hematologic/Lymphatic: PRESENT: easy bleeding Physical Exam Vital Signs: Temp Pulse Resp BP Pulse Ox 97.4 F 50 L 18 188/65 H 100 04/12/20 11:01 04/12/20 12:00 04/12/20 12:46 04/12/20 12:46 04/12/20 12:46 Intake & Output 04/11/20 04/12/20 04/13/20 06:59 06:59 06:59 Intake Total 1100 Balance 1100 Weight 54.3 kg 54.3 kg General appearance: PRESENT: no acute distress, cooperative, thin, well- developed Head exam: PRESENT: atraumatic, normocephalic Eye exam: PRESENT: conjunctiva pale Mouth exam: PRESENT: moist Respiratory exam: PRESENT: symmetrical, unlabored Cardiovascular exam: PRESENT: RRR, +S1, +S2 Pulses: PRESENT: normal radial pulses GI/Abdominal exam: PRESENT: soft Rectal exam: PRESENT: deferred Neurological exam: PRESENT: alert, awake, oriented to person, oriented to place, oriented to time, oriented to situation Psychiatric exam: PRESENT: appropriate affect Skin exam: PRESENT: dry, intact, pallor Results Laboratory Results: 04/12/20 10:27 04/11/20 21:34 04/11/20 04/11/20 04/11/20 21:34 21:34 21:34 WBC 2.2 L RBC 2.13 L Hgb 6.6 L Hct 19.7 L MCV 93 MCH 30.9 MCHC 33.4 RDW 14.3 H Plt Count 67 L Seg Neutrophils % 40.5 L Retic Count (auto) 1.04 Sodium 139.8 Potassium 3.4 L Chloride 111 H Carbon Dioxide 21 L Anion Gap 8 BUN 22 H Creatinine 0.89 Est GFR ( Amer) > 60 Glucose 91 Calcium 7.4 L Iron TIBC % Saturation Ferritin Total Bilirubin 0.3 AST 21 Alkaline Phosphatase 53 Total Protein 4.8 L Albumin 2.7 L Vitamin B12 Folate Urine Color Urine Appearance Urine pH Ur Specific [place] Urine Protein Urine Glucose (UA) Urine Ketones Urine Blood Urine RBC (Auto) Blood Type Antibody Screen 04/11/20 04/11/20 04/12/20 21:34 23:15 00:33 WBC RBC Hgb Hct MCV MCH MCHC RDW Plt Count Seg Neutrophils % Retic Count (auto) Sodium Potassium Chloride Carbon Dioxide Anion Gap BUN Creatinine Est GFR ( Amer) Glucose Calcium Iron 31.9 L TIBC 220 L % Saturation 15 Ferritin 392.00 H Total Bilirubin AST Alkaline Phosphatase Total Protein Albumin Vitamin B12 > 1000.0 H Folate 3.69 Urine Color JONATHON Urine Appearance SLIGHTLY-CLOUDY Urine pH 5.0 Ur Specific [place] 1.026 Urine Protein 30 H Urine Glucose (UA) NEGATIVE Urine Ketones NEGATIVE Urine Blood NEGATIVE Urine RBC (Auto) 1 Blood Type A POSITIVE Antibody Screen NEGATIVE 04/12/20 04/12/20 08:30 10:27 WBC Cancelled 3.6 L RBC Cancelled 3.84 Hgb Cancelled 11.9 L D Hct Cancelled 34.1 L MCV Cancelled 89 D MCH Cancelled 31.0 MCHC Cancelled 34.9 RDW Cancelled 14.3 H Plt Count Cancelled 88 L Seg Neutrophils % Cancelled 58.5 Retic Count (auto) Sodium Potassium Chloride Carbon Dioxide Anion Gap BUN Creatinine Est GFR ( Amer) Glucose Calcium Iron TIBC % Saturation Ferritin Total Bilirubin AST Alkaline Phosphatase Total Protein Albumin Vitamin B12 Folate Urine Color Urine Appearance Urine pH Ur Specific [place] Urine Protein Urine Glucose (UA) Urine Ketones Urine Blood Urine RBC (Auto) Blood Type Antibody Screen 04/11/20 04/12/20 04/12/20 21:34 03:49 03:49 Creatine Kinase 29 L CK-MB (CK-2) 1.34 Troponin I < 0.012 < 0.012 04/12/20 04/12/20 12:01 12:10 Creatine Kinase 36 CK-MB (CK-2) 1.96 Troponin I < 0.012 EKG Comments: Twelve-lead EKG 04/03/2020 Sinus bradycardia 56 bpm Twelve-lead EKG 03/20/2019 Likely atrial tachycardia with 2-1 conduction Transthoracic echocardiogram 03/20/2019 Left ventricular ejection fraction 60 to 65%. Left atrial size was normal. No valve lesion. Telemetry in the room with the patient showed bradycardia with heart rates 45 to 55 bpm. No pauses noted. Transthoracic echocardiogram 01/20/2016 Left ventricular ejection fraction was preserved. Myocardial perfusion imaging study 02/02/2016 Probable mild ischemia in the mid anterior wall versus differences in breast attenuation artifact. No definite evidence of infarction or scar. Ejection fraction 67% Laboratory data White blood cell count is 2.2 Hemoglobin 6.6 Platelet count 67 Hematocrit 19.7 Improved after 2 units of blood to hemoglobin of 11.9 34.1 hematocrit Platelet count 88 Impressions: Head CT 04/11/20 23:01 IMPRESSION: 1. There is no evidence of acute intracranial pathology. 2. Mild cerebral atrophy with findings compatible with chronic microangiopathy. These critical findings were discussed with Dr. Mcgraw on 04/11/2020 at 11:36 PM Central time. Chest X-Ray 04/11/20 23:04 IMPRESSION: No acute abnormality as above. copyright 2010 [employer]- All Rights Reserved Brain MRI with MRA 04/12/20 00:00 IMPRESSION: No aneurysm, occlusion or high-grade stenosis of the intracranial arterial vasculature. Head MRI 04/12/20 00:00 IMPRESSION: No acute intracranial abnormality. EVIDENCE OF ACUTE STROKE: NO. Neck MRA 04/12/20 00:00 IMPRESSION: Incomplete MRI of the neck due to patient's inability to tolerate the exam because of pain. There is no high-grade stenosis or occlusion of the carotid arteries. Assessment & Plan - Diagnosis (1) Bradycardia Is this a current diagnosis for this admission?: Yes Plan: Patient is noted to be bradycardic with heart rates in the mid 40 bpm range. But this is not sustained and there are excursion of heart rates into the mid 50s It is possible that some component of her symptoms is related to bradycardia. However she presented with very severe anemia and has required blood transfusion and so I suspect that the symptom is multifactorial She does have paroxysmal atrial fibrillation and it is possible that she has underlying sinus node dysfunction Given her overall frail state and with ongoing blood dyscrasias it would not be prudent to consider permanent pacing or any other invasive procedures at this t [facility] unless they are absolutely necessary. Given her relative lack of symptoms and absence of symptomatic pauses and sustained bradycardia it would be reasonable to wait at this point. Would recommend avoiding negative chronotropic agents and AV jaren blockers. Supportive treatment for anemia and other ongoing medical issues. (2) History of intracranial hemorrhage Is this a current diagnosis for this admission?: No Plan: Previous history of intracranial hemorrhage This was managed conservatively. (3) Pancytopenia Is this a current diagnosis for this admission?: Yes Plan: Appreciate hematology input Patient has received blood transfusion Antiplatelet therapy if possible and allowed (4) TIA (transient ischemic attack) Is this a current diagnosis for this admission?: Yes Plan: The symptoms have resolved.
--- NOTE | 2020-04-12 14:38 | XCELERA REPORT ---
[address] [address] Transthoracic Echocardiogram Report Name: LINDSEY ART Age: 84 yrs Gender: Female : 1935 Patient Status: Inpatient Patient Location: [place] [address]^A Study Date: 04/12/2020 10:25 AM History: TIA bradycardia Height: 62 in Weight: 119 lb BSA: 1.5 m2 Procedure: A complete two-dimensional transthoracic echocardiogram was performed (2D, M-mode, spectral and color flow Doppler). The study was technically difficult with many images being suboptimal in quality. Reason For Study: TIA Previous Evaluation: A previous study was performed on 01/20/2016 LVEF 70%. History: CVA. Bradycardia. Ordering Physician: GONZALES ROMO Performed By: Corazon Montez Interpretation Summary Left ventricular systolic function is normal. The Ejection Fraction estimate is 60-65% The right ventricle is normal in size and function. There is a trace amount of mitral regurgitation There is a mild amount of aortic regurgitation There is no aortic valve stenosis There is a mild amount of tricuspid regurgitation There is mild pulmonary hypertension by echo There is no pericardial effusion. MMode/2D Measurements & Calculations RVDd: 3.2 cm LVIDd: 4.7 cm FS: 39.9 % Ao root diam: 2.8 cm IVSd: 1.0 cm LVIDs: 2.8 cm EDV(Teich): 101.2 ml Ao root area: 6.3 cm2 LVPWd: 0.88 cm ESV(Teich): 29.8 ml LA dimension: 3.7 cm EF(Teich): 70.5 % Doppler Measurements & Calculations MV E max akiden: MV P1/2t max kaiden: AI max kaiden: PA V2 max: 77.5 cm/sec 77.5 cm/sec 440.4 cm/sec 93.8 cm/sec MV A max kaiden: MV P1/2t: 84.2 msec AI max PG: PA max P.2 cm/sec MVA(P1/2t): 2.6 cm2 77.6 mmHg 3.5 mmHg MV E/A: 1.2 MV dec slope: AI dec slope: 334.3 cm/sec2 269.7 cm/sec2 AI P1/2t: MV dec time: 385.8 msec 0.28 sec PI end-d kaiden: TR max kaiden: AV P1/2t-pr_phl: MV P1/2t-pr_phl: 142.3 cm/sec 311.7 cm/sec 385.8 msec 84.2 msec TR max P.9 mmHg Left Ventricle The left ventricle is normal in size. There is mild concentric left ventricular hypertrophy. Left ventricular systolic function is normal. The Ejection Fraction estimate is 60-65%. Doppler measurements suggest pseudonormalized left ventricular relaxation, which is associated with grade II/IV or mild to moderate diastolic dysfunction. No regional wall motion abnormalities noted. Right Ventricle The right ventricle is normal in size and function. Atria The right atrium is normal. The left atrium is borderline dilated. Mitral Valve The mitral valve is grossly normal. There is no evidence of mitral valve prolapse. There is no mitral valve stenosis. There is a trace amount of mitral regurgitation. Aortic Valve The aortic valve is sclerotic, but shows no functional abnormality. The aortic valve is trileaflet. The aortic valve opens well. There is no aortic valve stenosis. There is a mild amount of aortic regurgitation. Tricuspid Valve The tricuspid valve is normal in structure and function. There is no tricuspid stenosis. There is a mild amount of tricuspid regurgitation. There is mild pulmonary hypertension by echo. Right ventricular systolic pressure is estimated to be elevated at 40-50mmHg. Pulmonic Valve The pulmonic valve is normal in structure and function. There is no pulmonic valvular stenosis. There is a mild amount of pulmonic regurgitation. Great Vessels The aortic root is normal size. The inferior vena cava appeared normal and decreased > 50% with respiration (RAP 5-10 mmHg). Effusions There is no pericardial effusion. : GONZALES ROMO Anil
--- NOTE | 2020-04-12 15:10 | ER Document Report ---
Doctor's Note Notes: 04/12/20 15:08 84-year-old patient admitted to the hospital under the care of bed assignment that is still pending at this time. Patient presented with generalized weakness and pancytopenia. Patient has received some blood products today. Patient reports that her weakness is lessening at this time. Patient is going to have a swallowing study to determine if she can swallow and therefore will be able to eat today.
[2020-04-12] MEDS ORDERED: BRINZOLAMIDE OD SCH (18:00)
[2020-04-12] MEDS ORDERED: BRIMONIDINE TART OD SCH (18:00)
[2020-04-12] MEDS ORDERED: [UNRECOGNIZED DRUG - OTHER] OD SCH (18:00)
[2020-04-12 20:15] LABS: CREATINE KINASE MB 2.02 ng/mL (<4.55); TROPONIN I 0.018 ng/mL
[2020-04-12] MEDS ORDERED: ATORVASTATIN CALCIUM 80 MG TABLET PO SCH (22:00)
[2020-04-12] MEDS ORDERED: CEFTRIAXONE 1 GM/D5W RTU 1 GM/50 ML RTUPB IV SCH (22:00)
[2020-04-13 07:20] LABS: ABSOLUTE MONOCYTES (AUTO) 0.2 10^3/uL (0.1-1.4); BASOPHILS % (AUTO) 0.5 % (0-2); EOSINOPHILS % (AUTO) 0.6 % (0-6); HEMATOCRIT 33.4 % (36.0-47.0); HEMOGLOBIN 11.8 g/dL (12.0-15.5); LYMPHOCYTES % (AUTO) 30.8 % (13-45); MEAN CORPUSCULAR HEMOGLOBIN 31.3 pg (27.0-33.4); MEAN CORPUSCULAR HGB CONC 35.3 g/dL (32.0-36.0); MEAN CORPUSCULAR VOLUME 89 fl (80-97); MONOCYTES % (AUTO) 6.9 % (3-13); RED BLOOD COUNT 3.77 10^6/uL (3.72-5.28); SEGMENTED NEUTROPHILS % (AUTO) 61.2 % (42-78); TOTAL CELLS COUNTED % (AUTO) 100 %; WHITE BLOOD COUNT 3.3 10^3/uL (4.0-10.5)
[2020-04-13 07:33] LABS: ANION GAP 8 (5-19); BLOOD UREA NITROGEN 13 mg/dL (7-20); CALCIUM 8.6 mg/dL (8.4-10.2); CARBON DIOXIDE 22 mmol/L (22-30); CHLORIDE 109 mmol/L (98-107); GLUCOSE 85 mg/dL (75-110); POTASSIUM 3.8 mmol/L (3.6-5.0)
[2020-04-13 07:42] LABS: PLATELET COUNT 85 10^3/uL (150-450)
--- NOTE | 2020-04-13 08:44 | PDOC PROGRESS REPORT ---
Subjective Date:: 04/13/20 Subjective:: Patient was seen with Dr. Leggett at bedside. She is anxious to go home and would like to be discharged later today. No evidence of bleeding, infection, or other cause of her acute illness. Her TIA seems to have resolved. Reason For Visit: PANCYTOPENIA,MYELODYSPLASTIC SYNDROME,TIA,UTI Physical Exam Vital Signs: Temp Pulse Resp BP Pulse Ox 97.8 F 52 L 18 167/65 H 100 04/13/20 07:30 04/13/20 07:30 04/13/20 07:30 04/13/20 07:30 04/13/20 07:30 Intake & Output 04/12/20 04/13/20 04/14/20 06:59 06:59 06:59 Intake Total 1100 50 Output Total 0 Balance 1100 50 Weight 54.3 kg 50.7 kg Results Laboratory Results: 04/13/20 06:57 04/13/20 06:57 04/12/20 04/12/20 04/12/20 00:33 08:30 10:27 WBC Cancelled 3.6 L RBC Cancelled 3.84 Hgb Cancelled 11.9 L D Hct Cancelled 34.1 L MCV Cancelled 89 D MCH Cancelled 31.0 MCHC Cancelled 34.9 RDW Cancelled 14.3 H Plt Count Cancelled 88 L Seg Neutrophils % Cancelled 58.5 Sodium Potassium Chloride Carbon Dioxide Anion Gap BUN Creatinine Est GFR ( Amer) Glucose Calcium Blood Type A POSITIVE Antibody Screen NEGATIVE 04/13/20 04/13/20 06:57 06:57 WBC 3.3 L RBC 3.77 Hgb 11.8 L Hct 33.4 L MCV 89 MCH 31.3 MCHC 35.3 RDW 14.0 Plt Count 85 L Seg Neutrophils % 61.2 Sodium 138.6 Potassium 3.8 Chloride 109 H Carbon Dioxide 22 Anion Gap 8 BUN 13 Creatinine 0.70 Est GFR ( Amer) > 60 Glucose 85 Calcium 8.6 Blood Type Antibody Screen 04/11/20 04/12/20 04/12/20 21:34 03:49 03:49 Creatine Kinase 29 L CK-MB (CK-2) 1.34 Troponin I < 0.012 < 0.012 04/12/20 04/12/20 04/12/20 12:01 12:10 19:27 Creatine Kinase 36 42 CK-MB (CK-2) 1.96 Troponin I < 0.012 04/12/20 19:27 Creatine Kinase CK-MB (CK-2) 2.02 Troponin I 0.018 Impressions: Head CT 04/11/20 23:01 IMPRESSION: 1. There is no evidence of acute intracranial pathology. 2. Mild cerebral atrophy with findings compatible with chronic microangiopathy. These critical findings were discussed with Dr. Mcgraw on 04/11/2020 at 11:36 PM Central time. Chest X-Ray 04/11/20 23:04 IMPRESSION: No acute abnormality as above. copyright 2010 [employer]- All Rights Reserved Brain MRI with MRA 04/12/20 00:00 IMPRESSION: No aneurysm, occlusion or high-grade stenosis of the intracranial arterial vasculature. Head MRI 04/12/20 00:00 IMPRESSION: No acute intracranial abnormality. EVIDENCE OF ACUTE STROKE: NO. Neck MRA 04/12/20 00:00 IMPRESSION: Incomplete MRI of the neck due to patient's inability to tolerate the exam because of pain. There is no high-grade stenosis or occlusion of the carotid arteries. Assessment & Plan - Diagnosis (1) Pancytopenia Is this a current diagnosis for this admission?: Yes Plan: This is stable today. I discussed with Dr. Leggett the thought of holding the Lipitor for a few weeks to see if this helps her blood counts. If no change, then restart. He agrees. May consider bone marrow biopsy in the future. She also has a history of B12 deficiency. She was given a B12 injection by Dr. Leggett within the last few weeks. I am happy to follow her in the office. (2) TIA (transient ischemic attack) Is this a current diagnosis for this admission?: Yes - Time Time Spent with patient: 15-24 minutes
[2020-04-13] MEDS ORDERED: CALCIUM CARBONATE 600 MG TABLET PO SCH (10:00)
[2020-04-13] MEDS ORDERED: FERROUS SULFATE 325 MG TABLET PO SCH (10:00)
[2020-04-13] MEDS ORDERED: VALACYCLOVIR HCL 500 MG TABLET PO SCH (10:00)
[2020-04-13] MEDS ORDERED: LOSARTAN POTASSIUM 50 MG TABLET PO SCH (10:45)
--- NOTE | 2020-04-13 13:06 | PDOC DISCHARGE SUMMARY ---
Impression - Admit/DC Date/PCP Admission Date/Primary Care Provider: 04/12/20 01:58 TERRENCE KHAN MD Discharge Date: 04/13/20 - Discharge Diagnosis (1) TIA (transient ischemic attack) Is this a current diagnosis for this admission?: Yes (2) History of intracranial hemorrhage Is this a current diagnosis for this admission?: No (3) History of cerebrovascular disease Is this a current diagnosis for this admission?: Yes (4) Vitamin B 12 deficiency Is this a current diagnosis for this admission?: Yes (5) Bradycardia Is this a current diagnosis for this admission?: Yes (6) Pancytopenia Is this a current diagnosis for this admission?: Yes (7) Anxiety disorder Is this a current diagnosis for this admission?: Yes - Additional Information Discharge Diet: Regular Discharge Activity: Activity As Tolerated Referrals: ALEXANDRA MCARTHUR MD [ACTIVE STAFF] - 04/27/20 10:15 am (please call for follow-up within 2 weeks. ) TERRENCE KHAN MD [Primary Care Provider] - 04/21/20 11:30 am Home Medications: Calcium Carbonate [Calcium] 1,200 mg PO DAILY 07/04/19 Brinzolamide/Brimonidine Tart [Simbrinza 1%-0.2% Eye Drops] 1 drop OD BID 04/12/20 Ergocalciferol (Vitamin D2) [Drisdol 50,000 unit (1.25MG) Capsule] 50,000 unit PO MO 04/12/20 Ferrous Sulfate [Feosol 325 mg Tablet] 325 mg PO DAILY 04/12/20 Ibandronate Sodium [Boniva] 150 mg PO .MONTHLY 04/12/20 Losartan Potassium [Cozaar 50 mg Tablet] 50 mg PO DAILY 04/12/20 Omeprazole 20 mg PO DAILY 04/12/20 Valacyclovir HCl [Valtrex 500 mg Tablet] 500 mg PO DAILY 04/12/20 History of Present Illiness History of Present Illness: LINDSEY ART is a 84 year old female This 84-year-old female's with a history of the hypertensions osteoarthritis osteoporosis history of the intracranial hemorrhage and history ofAtrial flutter endotracheal bradycardia syndromes admitting in the [facility] in February 2019 because of the intracranial hemorrhage subsequently patient seen by Dr. aVle electronic imager for the tachybradycardia syndromes not a candidate for at the time any pacemaker on anticoagulation History of the anemia and vitamin B12 deficiency and used to see Dr. Segura in the past see Dr. Arana came today's with a complaining of for slurred speech and right-sided weakness started 1 hour before in the emergency department initial CT of the head was negative patient's also found a pancytopenia with a platelet is 67 not a candidate for any TPA but patient's symptoms is all resolved When I saw the patient alert awake oriented no acute symptoms Patient's subsequent MRI and MRA of the head was negative for any acute finding Patient received 1 unit of the blood patient hemoglobin goes to up to 11 not sure about 6.7 was correct number Patient's denied any blood in the stools no black stools in the stool guaiac test is negative Patient's denied any chest pain no short of breath The patient is a very vague complainer very poor historians Hospital Course Hospital Course: This 84-year-old female is presenting the emergency department with a TIA type of the symptoms patient's basically underwent for the CT of the head and MRI of the head was all negative patient does not have any symptoms after that Also find the pancytopenia seen by the hematology Dr. gupta received a 1 unit of the blood Patient also have a bradycardic episode which patient have ongoing problems seen by the Dr. Vale electronic imager does not require any pacemaker patient is currently not taking any beta-isai or not calcium channel isai suggest to follow outpatient Patient is otherwise doing well patient is also received the 2 dose of the IV Rocephin which patient have a very few colonies of the urine does not have any UTI symptoms Patient at this point's desires to go home's she preferred to go home and have been staying in the hospital patient's walk with the physical therapy and will arrange the home health and physical therapy According to Dr. Arana wants to stop the Lipitor because symptoms are because the pancytopenia want to see in a week to see how it goes then will restart the Lipitor and will start the aspirin 81 mg p.o. daily Patient is otherwise back to the normal discharge home with a stable conditions discussed with the patient extensively regarding the current conditions All test report discussed with the patient patients prefer to go home do not want to stay another day in the hospital patient is fully alert awake oriented x4 understand very well discussed with myself and hematology Dr. Arana all the test report and the plan Physical Exam Vital Signs: Temp Pulse Resp BP Pulse Ox 97.8 F 52 L 18 167/65 H 100 04/13/20 08:42 04/13/20 07:30 04/13/20 07:30 04/13/20 07:30 04/13/20 07:30 Intake & Output 04/12/20 04/13/20 04/14/20 06:59 06:59 06:59 Intake Total 1100 50 Output Total 0 Balance 1100 50 Weight 54.3 kg 50.7 kg General appearance: PRESENT: no acute distress, well-developed, well-nourished Head exam: PRESENT: atraumatic, normocephalic Eye exam: PRESENT: conjunctiva pink, EOMI, PERRLA. ABSENT: scleral icterus Ear exam: PRESENT: normal external ear exam Mouth exam: PRESENT: moist, tongue midline Neck exam: ABSENT: carotid bruit, JVD, lymphadenopathy, thyromegaly Respiratory exam: PRESENT: clear to auscultation tavia. ABSENT: rales, rhonchi, wheezes Cardiovascular exam: PRESENT: RRR. ABSENT: diastolic murmur, rubs, systolic murmur Pulses: PRESENT: normal dorsalis pedis pul Vascular exam: PRESENT: normal capillary refill GI/Abdominal exam: PRESENT: normal bowel sounds, soft. ABSENT: distended, guarding, mass, organolmegaly, rebound, tenderness Rectal exam: PRESENT: deferred Extremities exam: PRESENT: full ROM. ABSENT: calf tenderness, clubbing, pedal edema Neurological exam: PRESENT: alert, awake, oriented to person, oriented to place, oriented to time, oriented to situation, CN II-XII grossly intact. ABSENT: motor sensory deficit Psychiatric exam: PRESENT: appropriate affect, normal mood. ABSENT: homicidal ideation, suicidal ideation Skin exam: PRESENT: dry, intact, warm. ABSENT: cyanosis, rash Results Laboratory Results: WBC 3.3 10^3/uL (4.0-10.5) L 04/13/20 06:57 RBC 3.77 10^6/uL (3.72-5.28) 04/13/20 06:57 Hgb 11.8 g/dL (12.0-15.5) L 04/13/20 06:57 Hct 33.4 % (36.0-47.0) L 04/13/20 06:57 MCV 89 fl (80-97) 04/13/20 06:57 MCH 31.3 pg (27.0-33.4) 04/13/20 06:57 MCHC 35.3 g/dL (32.0-36.0) 04/13/20 06:57 RDW 14.0 % (11.5-14.0) 04/13/20 06:57 Plt Count 85 10^3/uL (150-450) L 04/13/20 06:57 Lymph % (Auto) 30.8 % (13-45) 04/13/20 06:57 Clarke % (Auto) 6.9 % (3-13) 04/13/20 06:57 Eos % (Auto) 0.6 % (0-6) 04/13/20 06:57 Baso % (Auto) 0.5 % (0-2) 04/13/20 06:57 Reticulocyte # 0.022 10^6/uL (0.028-0.122) L 04/11/20 21:34 Absolute Neuts (auto) 2.0 10^3/uL (1.7-8.2) 04/13/20 06:57 Absolute Lymphs (auto) 1.0 10^3/uL (0.5-4.7) 04/13/20 06:57 Absolute Monos (auto) 0.2 10^3/uL (0.1-1.4) 04/13/20 06:57 Absolute Eos (auto) 0.0 10^3/uL (0.0-0.6) 04/13/20 06:57 Absolute Basos (auto) 0.0 10^3/uL (0.0-0.2) 04/13/20 06:57 Seg Neutrophils % 61.2 % (42-78) 04/13/20 06:57 Platelet Estimate Cancelled 04/12/20 08:30 Retic Count (auto) 1.04 % (0.66-2.85) 04/11/20 21:34 PT 13.4 SEC (11.4-15.4) 04/11/20 21:34 INR 1.00 04/11/20 21:34 APTT 31.1 SEC (23.5-35.8) 04/11/20 21:34 Sodium 138.6 mmol/L (137-145) 04/13/20 06:57 Potassium 3.8 mmol/L (3.6-5.0) 04/13/20 06:57 Chloride 109 mmol/L (98-107) H 04/13/20 06:57 Carbon Dioxide 22 mmol/L (22-30) 04/13/20 06:57 Anion Gap 8 (5-19) 04/13/20 06:57 BUN 13 mg/dL (7-20) 04/13/20 06:57 Creatinine 0.70 mg/dL (0.52-1.25) 04/13/20 06:57 Est GFR ( Amer) > 60 (>60) 04/13/20 06:57 Est GFR (MDRD) Non-Af > 60 (>60) 04/13/20 06:57 Glucose 85 mg/dL (75-110) 04/13/20 06:57 Calcium 8.6 mg/dL (8.4-10.2) 04/13/20 06:57 Iron 31.9 ug/dL (37-170) L 04/11/20 21:34 TIBC 220 ug/dL (250-450) L 04/11/20 21:34 % Saturation 15 % 04/11/20 21:34 Ferritin 392.00 ng/mL (11.1-264.0) H 04/11/20 21:34 Total Bilirubin 0.3 mg/dL (0.2-1.3) 04/11/20 21:34 Direct Bilirubin 0.1 mg/dL (0.0-0.4) 04/11/20 21:34 Neonat Total Bilirubin Not Reportable 04/11/20 21:34 Neonat Direct Bilirubin Not Reportable 04/11/20 21:34 Neonat Indirect Bili Not Reportable 04/11/20 21:34 AST 21 U/L (14-36) 04/11/20 21:34 ALT 12 U/L (<35) 04/11/20 21:34 Alkaline Phosphatase 53 U/L (38-126) 04/11/20 21:34 Creatine Kinase 42 U/L (30-135) 04/12/20 19:27 CK-MB (CK-2) 2.02 ng/mL (<4.55) 04/12/20 19:27 Troponin I 0.018 ng/mL 04/12/20 19:27 Total Protein 4.8 g/dL (6.3-8.2) L 04/11/20 21:34 Albumin 2.7 g/dL (3.5-5.0) L 04/11/20 21:34 Vitamin B12 > 1000.0 pg/mL (239-931) H 04/11/20 21:34 Folate 3.69 ng/mL (>2.76) 04/11/20 21:34 Urine Color JONATHON 04/11/20 23:15 Urine Appearance SLIGHTLY-CLOUDY 04/11/20 23:15 Urine pH 5.0 (5.0-9.0) 04/11/20 23:15 Ur Specific [place] 1.026 04/11/20 23:15 Urine Protein 30 mg/dL (NEGATIVE) H 04/11/20 23:15 Urine Glucose (UA) NEGATIVE mg/dL (NEGATIVE) 04/11/20 23:15 Urine Ketones NEGATIVE mg/dL (NEGATIVE) 04/11/20 23:15 Urine Blood NEGATIVE (NEGATIVE) 04/11/20 23:15 Urine Nitrite (Reflex) NEGATIVE (NEGATIVE) 04/11/20 23:15 Urine Bilirubin NEGATIVE (NEGATIVE) 04/11/20 23:15 Urine Urobilinogen 2.0 mg/dL (<2.0) H 04/11/20 23:15 Leukocyte Esterase Rfl SMALL (NEGATIVE) H 04/11/20 23:15 Urine RBC (Auto) 1 /HPF 04/11/20 23:15 U Hyaline Cast (Auto) 13 /LPF 04/11/20 23:15 Urine WBC (Reflex) 25 /HPF 04/11/20 23:15 Squamous Epi Cells Auto 1 /HPF 04/11/20 23:15 Urine Mucus (Auto) RARE /LPF 04/11/20 23:15 Urine Ascorbic Acid NEGATIVE (NEGATIVE) 04/11/20 23:15 Slides for Path Review Cancelled 04/12/20 08:30 Blood Type A POSITIVE 04/12/20 00:33 Blood Type Confirm A POSITIVE 04/12/20 03:59 Antibody Screen NEGATIVE 04/12/20 00:33 Crossmatch See Detail 04/12/20 00:33 04/11/20 04/12/20 04/12/20 21:34 03:49 12:01 CK-MB (CK-2) 1.34 1.96 Troponin I < 0.012 < 0.012 < 0.012 04/12/20 19:27 CK-MB (CK-2) 2.02 Troponin I 0.018 Impressions: Head CT 04/11/20 23:01 IMPRESSION: 1. There is no evidence of acute intracranial pathology. 2. Mild cerebral atrophy with findings compatible with chronic microangiopathy. These critical findings were discussed with Dr. Mcgraw on 04/11/2020 at 11:36 PM Central time. Chest X-Ray 04/11/20 23:04 IMPRESSION: No acute abnormality as above. copyright 2011 [employer]- All Rights Reserved Brain MRI with MRA 04/12/20 00:00 IMPRESSION: No aneurysm, occlusion or high-grade stenosis of the intracranial arterial vasculature. Head MRI 04/12/20 00:00 IMPRESSION: No acute intracranial abnormality. EVIDENCE OF ACUTE STROKE: NO. Neck MRA 04/12/20 00:00 IMPRESSION: Incomplete MRI of the neck due to patient's inability to tolerate the exam because of pain. There is no high-grade stenosis or occlusion of the carotid arteries. Plan Time Spent: Greater than 30 Minutes - Follow outpatients Dr. Carbajal follow in office 1 week and follow-up with the cardiology Stroke Is this a Stroke Patient?: No Acute Heart Failure Is this a Heart Failure Patient?: No
[2020-04-13] MEDS ORDERED: CEFTRIAXONE 1 GM/D5W RTU 1 GM/50 ML RTUPB IV ONE (14:00)
--- NOTE | 2020-04-13 15:15 | EKG REPORT ---
SEVERITY:- ABNORMAL ECG - SINUS BRADYCARDIA MULTIPLE VENTRICULAR PREMATURE COMPLEXES NONSPECIFIC T ABNORMALITIES, LATERAL LEADS : Confirmed by: Hyadee García MD 13-Apr-2020 15:14:12
--- NOTE | 2020-04-13 15:16 | EKG REPORT ---
SEVERITY:- ABNORMAL ECG - NONSPECIFIC T ABNORMALITIES, LATERAL LEADS SINUS BRADYCARDIA : Confirmed by: Haydee García MD 13-Apr-2020 15:15:46
[2020-04-13 15:57] VITALS: BP 142/68
[2020-04-14] MEDS ORDERED: PANTOPRAZOLE SODIUM 20 MG TABLET.DR PO SCH (10:00)
[2020-04-14] MEDS ORDERED: (PENDING PHARMACY ID) (Omeprazole [Omeprazole] 20 MG Capsule.Dr) PO SCH (10:00)
--- NOTE | 2020-04-14 18:34 | PDOC PROGRESS REPORT ---
Subjective Date:: 04/13/20 Subjective:: Patient was seen and examined. She feels much better. Overnight heart rate con tinues to be in the mid 40s to 50 bpm range no profound bradycardia that was sustained. No pauses no dizziness is reported. Reason For Visit: PANCYTOPENIA,MYELODYSPLASTIC SYNDROME,TIA,UTI Physical Exam Vital Signs: Temp Pulse Resp BP Pulse Ox 98.4 F 51 L 15 179/90 H 100 04/13/20 15:40 04/13/20 15:40 04/13/20 15:40 04/13/20 15:40 04/13/20 15:40 Intake & Output 04/13/20 04/14/20 04/15/20 06:59 06:59 06:59 Intake Total 50 650 Output Total 0 Balance 50 650 Weight 50.7 kg 50.7 kg General appearance: PRESENT: no acute distress, thin, well-developed Head exam: PRESENT: atraumatic, normocephalic Eye exam: PRESENT: conjunctiva pale Respiratory exam: PRESENT: clear to auscultation tavia, symmetrical, unlabored Cardiovascular exam: PRESENT: bradycardia, RRR, +S1, +S2 Pulses: PRESENT: normal radial pulses GI/Abdominal exam: PRESENT: soft Rectal exam: PRESENT: deferred Neurological exam: PRESENT: alert, awake, oriented to person, oriented to place, oriented to time, oriented to situation Psychiatric exam: PRESENT: appropriate affect Skin exam: PRESENT: dry, intact, normal color Results Laboratory Results: 04/13/20 06:57 04/13/20 06:57 04/11/20 23:15 Catheterized Urine Urine Culture - Final Escherichia Coli 04/11/20 04/12/20 04/12/20 21:34 03:49 03:49 Creatine Kinase 29 L CK-MB (CK-2) 1.34 Troponin I < 0.012 < 0.012 04/12/20 04/12/20 04/12/20 12:01 12:10 19:27 Creatine Kinase 36 42 CK-MB (CK-2) 1.96 Troponin I < 0.012 04/12/20 19:27 Creatine Kinase CK-MB (CK-2) 2.02 Troponin I 0.018 EKG Comments: Overnight telemetry was reviewed. There was no sustained bradycardia or pauses. Presently heart rate of 60 bpm. Sinus rhythm. Impressions: Head CT 04/11/20 23:01 IMPRESSION: 1. There is no evidence of acute intracranial pathology. 2. Mild cerebral atrophy with findings compatible with chronic microangiopathy. These critical findings were discussed with Dr. Mcgraw on 04/11/2020 at 11:36 PM Central time. Chest X-Ray 04/11/20 23:04 IMPRESSION: No acute abnormality as above. copyright 2011 [employer]- All Rights Reserved Brain MRI with MRA 04/12/20 00:00 IMPRESSION: No aneurysm, occlusion or high-grade stenosis of the intracranial arterial vasculature. Head MRI 04/12/20 00:00 IMPRESSION: No acute intracranial abnormality. EVIDENCE OF ACUTE STROKE: NO. Neck MRA 04/12/20 00:00 IMPRESSION: Incomplete MRI of the neck due to patient's inability to tolerate the exam because of pain. There is no high-grade stenosis or occlusion of the carotid arteries. Assessment & Plan - Diagnosis (1) Bradycardia Is this a current diagnosis for this admission?: Yes Plan: Bradycardia albuterol without symptoms Heart rate excursion is between 40 to 60 bpm. 40 bpm is mostly when patient is recumbent and in bed. At the moment it is difficult to establish a correlation between her symptoms and heart rate. Especially given presentation with anemia which could have accounted for fatigue and dizziness and is a confounding factor it is difficult to make a pressing argument to pursue permanent pacing. It is possible that the patient has underlying sick sinus syndrome especially given history of atrial fibrillation and might benefit from permanent pacing. This should be kept in the back of our minds as we continue to follow the patient. I do not consider permanent pacing as an option during this visit. (2) History of intracranial hemorrhage Is this a current diagnosis for this admission?: No Plan: Follow-up with neurology. Aspirin therapy has been approved by hematology. (3) Pancytopenia Is this a current diagnosis for this admission?: Yes Plan: Pancytopenia with anemia. Medication as expected Continue follow-up and therapy. Hematology input appreciated. (4) TIA (transient ischemic attack) Is this a current diagnosis for this admission?: Yes Plan: During this presentation her symptoms may have been attributable to anemia. No new stroke is suspected to have happened. Given history of atrial arrhythmia systemic anticoagulation would be ideal but it is difficult to pursue that option given pancytopenia and anemia presentation.
== END 2020-04-13 16:20 | disposition home health service (06) | DRG 810 ==
LOC: ER 21:19 → EH 04-12 01:58 → 5 04-12 22:20
PROVIDERS: ADMIT Family Medicine; ATTEND Family Medicine
PROC: B24BZZ4 Ultrasonography of Heart with Aorta, Transesophageal (ICD-10-PCS; principal; 2020-04-12)
PROC: 30233N1 Transfusion of Nonautologous Red Blood Cells into Peripheral Vein, Percutaneous Approach (ICD-10-PCS; 2020-04-12)
DX: D61.818 Other pancytopenia (principal); I25.10 Atherosclerotic heart disease of native coronary artery without angina pectoris; E78.5 Hyperlipidemia, unspecified; I10 Essential (primary) hypertension; M19.90 Unspecified osteoarthritis, unspecified site; F32.9 Major depressive disorder, single episode, unspecified; R47.81 Slurred speech; R53.1 Weakness; R00.1 Bradycardia, unspecified; Z60.2 Problems related to living alone; F41.1 Generalized anxiety disorder; E53.8 Deficiency of other specified B group vitamins; I95.9 Hypotension, unspecified; Z86.73 Personal history of transient ischemic attack (TIA), and cerebral infarction without residual deficits; Z95.5 Presence of coronary angioplasty implant and graft; Z80.9 Family history of malignant neoplasm, unspecified
CPT/HCPCS: 36415; 36430; 70450; 70544; 70547; 70551; 71045; 80048; 80053; 81001; 82550; 82553; 82607; 82728; 82746; 83540; 83550; 84484; 85025; 85045; 85610; 85730; 86850; 86900; 86901; 86920; 87040; 87086; 87088; 87186; 88184; 88185; 93005; 93010; 93306; 96360; 99285; J0696; J3490; J7030; P9016

== ENCOUNTER 2020-04-14 19:51 | Inpatient (IN) | payer MEDICARE, OTHER ==
--- NOTE | 2020-04-14 20:09 | ER Document Report ---
ED Neuro Symptoms/Deficit - General Chief Complaint: S/S of Possible Stroke Stated Complaint: POSSIBLE STROKE ALERT Time Seen by Provider: 04/14/20 19:58 Mode of Arrival: Stretcher Information source: Patient, Emergency Med Personnel Notes: 84-year-old female arrives by EMS with main historian Dagmar EMS worker. Also patient began to speak shortly before arrival while traveling to the ER. Patient is oriented knows who she is where she is at moves all extremities at this time full sensations. She last left [facility] yesterday afternoon and was last known well at that time according to her friend. A friend called her around 40 minutes WIRELINE SUPERVISOR and advised EMS she was slurring her speech and did not sound right. EMS arrived and patient had slurred speech and unable to move her right side. Also patient had atrial fibrillation on the monitor taken by EMS. Patient is not on any blood thinners at this time for least none in her medicine package. Patient was noted by EMS to have right-sided weakness right arm drift right gaze problems mild facial droop on the right but no aphasia TRAVEL OUTSIDE OF THE [place] IN LAST 30 DAYS: No - Related Data Allergies/Adverse Reactions: No Known Allergies Allergy (Verified 04/14/20 20:23) Past Medical History - General Information source: Patient, Emergency Med Personnel - Social History Smoking Status: Never Smoker Cigarette use (# per day): No Chew tobacco use (# tins/day): No Smoking Education Provided: No Frequency of alcohol use: Occasional - vodka GinaJ Family History: Reviewed & Not Pertinent - Past Medical History Cardiac Medical History: Reports: Hx Coronary Artery Disease - 2004 CARDIAC STENTS , Hx Hypercholesterolemia, Hx Hypertension Denies: Hx Heart Attack Pulmonary Medical History: Denies: Hx Asthma, Hx Bronchitis, Hx COPD, Hx Pneumonia Neurological Medical History: Denies: Hx Cerebrovascular Accident, Hx Seizures Renal/ Medical History: Denies: Hx Peritoneal Dialysis Musculoskeletal Medical History: Reports Hx Arthritis - GENERALIZED Psychiatric Medical History: Reports: Hx Depression Past Surgical History: Reports: Hx Appendectomy, Hx Cholecystectomy, Hx Coronary Stent, Hx Hysterectomy, Hx Orthopedic Surgery - Immunizations Immunizations up to date: Yes Hx Diphtheria, Pertussis, Tetanus Vaccination: Yes Hx Pneumococcal Vaccination: 02/25/10 Review of Systems - Review of Systems Constitutional: See HPI, Weakness EENT: No symptoms reported Cardiovascular: See HPI, Dizziness Respiratory: No symptoms reported Gastrointestinal: No symptoms reported Genitourinary: No symptoms reported Female Genitourinary: No symptoms reported Musculoskeletal: See HPI, Other - FROM all ext Skin: No symptoms reported Hematologic/Lymphatic: No symptoms reported Neurological/Psychological: No symptoms reported Physical Exam - Vital signs Interpretation: Normal - General General appearance: Appears well, Alert - HEENT Head: Normocephalic, Atraumatic Eyes: Normal Pupils: PERRL - Respiratory Respiratory status: No respiratory distress Chest status: Nontender Breath sounds: Normal Chest palpation: Normal - Cardiovascular Rhythm: Tachycardia Heart sounds: Normal auscultation Murmur: No - Abdominal Inspection: Normal Distension: No distension Bowel sounds: Normal Tenderness: Nontender Organomegaly: No organomegaly - Rectal Hemorrhoids: Other - deferred - Genitourinary Bimanuel exam: Other - deferred - Back Back: Normal, Nontender - Extremities General upper extremity: Normal inspection, Nontender, Normal color, Normal ROM, Normal temperature General lower extremity: Normal inspection, Nontender, Normal color, Normal ROM, Normal temperature, Normal weight bearing. No: Leat's sign - Neurological Neuro grossly intact: Yes Cognition: Normal Orientation: AAOx4 Олег Coma Scale Eye Opening: Spontaneous Furman Coma Scale Verbal: Oriented Furman Coma Scale Motor: Obeys Commands Олег Coma Scale Total: 15 Speech: Normal Motor strength normal: LUE, RUE, LLE, RLE Sensory: Normal - Psychological Associated symptoms: Normal affect, Normal mood - Skin Skin Temperature: Warm Skin Moisture: Dry Skin Color: Pale, Other - Very thin cachectic female but appears in no distress at this time 1999 Course - Laboratory Result Diagrams: 04/14/20 20:15 04/14/20 20:15 - Diagnostic Test Radiology reviewed: Reports reviewed - EKG Interpretation by Me EKG shows normal: Sinus rhythm Rate: Tachycardia Rhythm: A.Fib - This was read by me and heart rate 129 bpm with no obvious T waves noted. I agree with the EKG machine Critical Care Note - Critical Care Note Total time excluding time spent on procedures (mins): 40 Comments: I spoke with Dr. Elkins at 2111 and he advises Cardizem 2.5 mg and patient should be placed on some anticoagulant. He will speak with Dr. Leggett tomorrow morning. I again spoke with Dr. Elkins at 2129 and he advises this patient belongs to Dr. Vale and therefore Dr. Vale was called but unfortunate was not able to reach him at this time. Dr. Leggett was called and he advises this patient has t achybradycardia syndrome and has had a history of a CVA with bleed in the past and therefore was not on any anticoagulants.Kinsey advised dig 125. I again spoke with Dr. Leggett at 2140 and he advises telemetry bed ED Alteplase Inc/Exc Criteria - Inclusion Criteria: 1: Patient presented to ED within 3 hours of acute ischemic stroke symptom onset? -: No 2: Did baseline CT exclude intracranial hemorrhage and/or other risk factors? -: Yes 3: Is the age of the patient 18 years of age or greater? -: Yes : If any of the above questions are answered "NO" then stop, patient is not a candidate for Alteplase, : If all of the above questions are answered "YES" then continue with Exclusion Criteria. - Exclusion Criteria: 1: Is there evidence of intracranial hemorrhage on baseline CT? 2: Is there suspicion of subarachnoid hemorrhage (even if CT negative)? 3: Is there a history of serious head trauma, recent previous stroke or [place] within 3 months? 4: Does the patient have a clinical presentation consistent with [place] or post-[place] pericarditis? 5: Is there history of intracranial hemorrhage? 6: On repeated measurement is Systolic BP greater than 185mmHg or Diastolic BP greater that 110 mmHg and is aggressive treatment needed to reduce blood pressure to these limits (e.g. constant infusion of an anti-hypertensive)? 7: Did the patient awake with stroke symptoms? 8: Has the patient had a lumbar puncture or an arterial puncture at a non- compressile site within 7 days? 9: With in the last 14 days did the patient have surgery or major trauma? 10: Is the patient or less than 2 weeks? 11: Was there any active bleeding or acute trauma? 12: Does the patient have intracranial neoplasm, arteriovenous malformation or a neurysm? 13: Does the patient have abnormal glucose (less than 50 or greater than 400mg/dl)? Record glucose in Comment. 14: Patient has rapidly improving symptoms at the time Alteplase is to be Administered. 15: Does the patient have any risks for bleeding, including but not limited to: a.: Current use of Coumadin with PT greater than 15 seconds or INR greater than 1.7. b.: Current use of Pradaxa (Dabigatran). c.: Heparin administereed within the past 48 hours and PTT elevated. d.: Platelet count less than 100,000/mm. e.: Major surgery or serious trauma within 14 days. f.: Gastrointestinal or gynecological urinary bleeding within 14 days. g.: Myocardial Infarction ([place]) within 3 months. : If the answer to any of the above questions is "YES" then stop, the patient is not a candidate for Alteplase. : If the answer to all of the above questions is "NO" then the patient may be eligible for the Administration of Alteplase. : If the patient is noted to have seizure activity at onset of Stroke symptoms; Consult Neurologist for further evaluation. - The patient is: -: Included and is eligible to receive Alteplase. *Initiate bed placement at higher level of care* Reviewed risks & benefits of thrombolytic therapy: I have reviewed the risks and benefits of thrombolytic therapy with the patient and/or his/her family. -: Excluded and not eligible to receive Alteplase for the above exclusions. -: Excluded and not eligible to receive Alteplase for other reasons (specify in comments): - Diagnosis of TIA: -: Patient presented with transient symptoms that are now resolved and no other neurologic findings are currently present. List symptoms in comments. -: Patient is NOT a candidate for tPA. -: ____(put name in comment) has been consulted for admission and continued evaluation of risk factor assessment. Discharge - Discharge Clinical Impression: TIA (transient ischemic attack) Atrial fibrillation Qualifiers: Atrial fibrillation type: unspecified Qualified Code(s): I48.91 - Unspecified atrial fibrillation Condition: Stable Disposition: ADMITTED INPATIENT Admitting Provider: [facility] Admitted: Telemetry
--- NOTE | 2020-04-14 20:16 | RADIOLOGY REPORT (SQ) ---
CT of the head: 04/14/2020 7:11 PM ENGRAVING OPERATOR HISTORY: 84-year-old patient with concern for stroke. COMPARISON: MRI of the brain from 04/12/2020; CT the head from 04/12/2020 TECHNIQUE: Multiple axial contiguous images were obtained through the head without intravenous contrast administered. This exam was performed according to our departmental dose-optimization program, which includes automated exposure control, adjustment of the mA and/or KV according to the patient's size and/or use of iterative reconstruction technique. FINDINGS: The ventricles and cerebral sulci demonstrate mild prominence, consistent with cerebral atrophy. There are mild periventricular hypodensities, suggestive of periventricular white matter changes. The funez-white matter differentiation is within normal limits. Both orbits appear unremarkable. The mastoid air cells appear clear. No hyperdense vascular sign is seen. There is mild mucoperiosteal thickening of the ethmoid sinuses. The calvarium is intact. No extra-axial fluid collection is seen. No midline shift or mass effect is apparent. There are no findings to suggest acute intracranial hemorrhage. IMPRESSION: 1. No acute intracranial hemorrhage is seen. 2. Mild cerebral atrophy and periventricular white matter changes are seen. If there is persistent clinical concern for a neurologic deficit, consider MRI brain with diffusion-weighted sequences for further evaluation.
[2020-04-14 20:30] LABS: INTERNATIONAL RATION (INR) 1.02; PROTHROMBIN TIME 13.6 SEC (11.4-15.4)
[2020-04-14 20:31] LABS: PARTIAL THROMBOPLASTIN TIME 28.4 SEC (23.5-35.8)
[2020-04-14 20:34] LABS: ABSOLUTE LYMPHOCYTES (AUTO) 1.3 10^3/uL (0.5-4.7); ABSOLUTE MONOCYTES (AUTO) 0.3 10^3/uL (0.1-1.4); ABSOLUTE NEUT (AUTO) 1.9 10^3/uL (1.7-8.2); BASOPHILS % (AUTO) 0.7 % (0-2); EOSINOPHILS % (AUTO) 0.2 % (0-6); HEMATOCRIT 37.7 % (36.0-47.0); HEMOGLOBIN 12.8 g/dL (12.0-15.5); LYMPHOCYTES % (AUTO) 36.4 % (13-45); MEAN CORPUSCULAR HEMOGLOBIN 30.3 pg (27.0-33.4); MEAN CORPUSCULAR HGB CONC 33.9 g/dL (32.0-36.0); MEAN CORPUSCULAR VOLUME 89 fl (80-97); MONOCYTES % (AUTO) 8.8 % (3-13); RED BLOOD COUNT 4.22 10^6/uL (3.72-5.28); RED CELL DISTRIBUTION WIDTH 14.3 % (11.5-14.0); SEGMENTED NEUTROPHILS % (AUTO) 53.9 % (42-78); TOTAL CELLS COUNTED % (AUTO) 100 %; WHITE BLOOD COUNT 3.5 10^3/uL (4.0-10.5)
[2020-04-14 20:44] LABS: ALBUMIN 3.7 g/dL (3.5-5.0); ALKALINE PHOSPHATASE 78 U/L (38-126); ANION GAP 8 (5-19); ASPARTATE AMINO TRANSFERASE 26 U/L (14-36); BILIRUBIN,DIRECT 0.2 mg/dL (0.0-0.4); BILIRUBIN,TOTAL 0.6 mg/dL (0.2-1.3); BLOOD UREA NITROGEN 16 mg/dL (7-20); CALCIUM 9.5 mg/dL (8.4-10.2); CARBON DIOXIDE 24 mmol/L (22-30); CHLORIDE 106 mmol/L (98-107); CREATINE KINASE 71 U/L (30-135); GLUCOSE 111 mg/dL (75-110); POTASSIUM 4.1 mmol/L (3.6-5.0); TOTAL PROTEIN 6.1 g/dL (6.3-8.2)
--- NOTE | 2020-04-14 20:50 | RADIOLOGY REPORT (SQ) ---
AP Portable chest: 04/14/2020 7:48 PM SULFIDE HEAD OPERATOR History: 84-year old patient with concern for stroke. Comparison: None available Findings: The cardiomediastinal silhouette is normal in size. No pneumothorax is seen. No acute airspace opacities are seen. No discrete pleural effusion is apparent. There is an anchor seen at the right humeral head. Atherosclerotic calcifications are seen at the aortic arch. Impression: No acute airspace opacities are seen.
[2020-04-14 20:54] LABS: PLATELET COUNT 94 10^3/uL (150-450)
[2020-04-14] MEDS ORDERED: DILTIAZEM HCL INJ 25 MG/5 ML VIAL IV ONE (21:15)
[2020-04-14] MEDS ORDERED: NORMAL SALINE 1000 ML 1,000 ML IV ONE (21:18)
[2020-04-14] MEDS ORDERED: DIGOXIN INJ 0.5 MG/2 ML AMPULE IV ONE (21:48)
[2020-04-14] MEDS ORDERED: ASPIRIN 81 MG TABLET, CHEWABLE PO ONE (21:51)
[2020-04-14] MEDS ORDERED: NORMAL SALINE 1000 ML 1,000 ML IV PRN (21:52)
[2020-04-14] MEDS ORDERED: ACETAMINOPHEN 325 MG TABLET PO PRN (21:52)
[2020-04-14] MEDS ORDERED: CEFTRIAXONE 1 GM/D5W RTU 1 GM/50 ML RTUPB IV SCH (22:00)
[2020-04-14] MEDS ORDERED: CEFTRIAXONE 1 GM/D5W RTU 1 GM/50 ML RTUPB IV ONE (23:00)
[2020-04-14 23:13] LABS: CREATINE KINASE MB 14.4 ng/mL (<4.55); TROPONIN I 0.028 ng/mL
[2020-04-14] MEDS: ATORVASTATIN CALCIUM 20 MG TABLET PO SCH (23:35)
[2020-04-15 01:37] LABS: APPEARANCE,URINE SLIGHTLY-CLOUDY; BILIRUBIN,URINE NEGATIVE (NEGATIVE); GLUCOSE, URINE NEGATIVE (NEGATIVE); KETONES,URINE NEGATIVE (NEGATIVE); LEUKOCYTE ESTERASE,URINE TRACE (NEGATIVE); NITRITE,URINE NEGATIVE (NEGATIVE); PROTEIN,URINE 30 mg/dL (NEGATIVE); UROBILINOGEN,URINE NEGATIVE mg/dL (<2.0)
[2020-04-15 01:38] LABS: COLOR,URINE YELLOW
[2020-04-15 06:48] LABS: ABSOLUTE LYMPHOCYTES (AUTO) 1.4 10^3/uL (0.5-4.7); ABSOLUTE MONOCYTES (AUTO) 0.2 10^3/uL (0.1-1.4); BASOPHILS % (AUTO) 0.5 % (0-2); EOSINOPHILS % (AUTO) 0.8 % (0-6); HEMATOCRIT 32.2 % (36.0-47.0); HEMOGLOBIN 11.1 g/dL (12.0-15.5); MEAN CORPUSCULAR HEMOGLOBIN 30.9 pg (27.0-33.4); MEAN CORPUSCULAR HGB CONC 34.6 g/dL (32.0-36.0); MEAN CORPUSCULAR VOLUME 89 fl (80-97); MONOCYTES % (AUTO) 8.5 % (3-13); RED BLOOD COUNT 3.61 10^6/uL (3.72-5.28); SEGMENTED NEUTROPHILS % (AUTO) 38.2 % (42-78); TOTAL CELLS COUNTED % (AUTO) 100 %; WHITE BLOOD COUNT 2.7 10^3/uL (4.0-10.5)
[2020-04-15 07:08] LABS: ANION GAP 7 (5-19); BLOOD UREA NITROGEN 16 mg/dL (7-20); CALCIUM 8.5 mg/dL (8.4-10.2); CARBON DIOXIDE 22 mmol/L (22-30); CHLORIDE 109 mmol/L (98-107); CHOLESTEROL 141.08 mg/dL (0-200); CREATINE KINASE 222 U/L (30-135); GLUCOSE 82 mg/dL (75-110); POTASSIUM 3.7 mmol/L (3.6-5.0); TRIGLYCERIDES 141 mg/dL (<150)
[2020-04-15 07:18] LABS: CREATINE KINASE MB 16.9 ng/mL (<4.55); DIRECT LDL 73 mg/dL (<100); TROPONIN I 0.026 ng/mL
[2020-04-15 07:22] LABS: PLATELET COUNT 75 10^3/uL (150-450)
--- NOTE | 2020-04-15 08:33 | EKG REPORT ---
SEVERITY:- ABNORMAL ECG - ATRIAL FIBRILLATION, V-RATE 78-170 ABNRM R PROG, CONSIDER ASMI OR LEAD PLACEMENT NONSPECIFIC T ABNORMALITIES, LATERAL LEADS BORDERLINE PROLONGED QT INTERVAL : Confirmed by: Haydee García MD 15-Apr-2020 08:32:47
--- NOTE | 2020-04-15 09:42 | PDOC H&P ---
History of Present Illness Admission Date/PCP: 04/14/20 21:47 TERRENCE KHAN MD Patient complains of: slureed speech /afib History of Present Illness: LINDSEY ART is a 84 year old female Is a 84-year-old female with a history of the pancytopenia history of the hypertension history of the ischemic stroke in the past history of the tachybradycardia syndromes history of the atrial flutter basically discharged yesterday from the hospital because patients do not want to stay in the hospital noticed by the friends that the patient have a some weakness on the upper extremities and slurred speech and patients at this point brought to the emergency department 30 minutes the symptoms pretty much all resolved Patient's initial CT of the head was negative patient recently have MRI and MRA of the head was negative to Patient have echocardiograms done 2 days back was all stable seen by the online marketing analyst at that point suggest no need for any kind of a pacemaker because patient heart rate was low 40 Patient's today's with a heart rate was 130 and A. fib giving the 2.5 mg Cardizem and as per discussed with Dr. Vale suggest to give her digoxin's patient's heart rate when I saw it running 90 range Patient's denied any chest pain no short of breath patient's platelet count is a 90 range start on aspirin as per discussed with the business administration professor is okay start the Lipitor due to the TIA type of the symptoms Patient unable to take an anticoagulations due to history of intracranial hemorrhage in the last year and history of the current pancytopenia Patient's today is in the emergency department denied any chest pain no short of breath patient's wants to go home again Discussed with the patient's caregiver Gladys today regarding the patient's current conditions and at this point very limited choice to give the patient's medication due to the pancytopenia is with advanced age not candidate for anticoagulations Patient is going to seen by Dr. Vale as per discussed with him for further evaluate about the rhythm issues Discussed with the business administration professor today's patient's primary need outpatients bone marrow biopsies discuss with the caregiver to inform the patient's son who will try to contact him regarding the patient's current conditions Past Medical History Cardiac Medical History: Reports: Coronary Artery Disease - 2004 CARDIAC STENTS , Hyperlipidema, Hypertension Denies: Myocardial Infarction Pulmonary Medical History: Denies: Asthma, Bronchitis, Chronic Obstructive Pulmonary Disease (COPD), Pneumonia Neurological Medical History: Denies: Seizures Musculoskeltal Medical History: Reports: Arthritis - GENERALIZED Psychiatric Medical History: Reports: Depression Hematology: Reports: Anemia - HX Past Surgical History Past Surgical History: Reports: Appendectomy, Cholecystectomy, Coronary Stent, Hysterectomy, Orthopedic Surgery Social History Information Source: Patient Smoking Status: Never Smoker Frequency of Alcohol Use: None Hx Recreational Drug Use: No Drugs: None Hx Prescription Drug Abuse: No Family History Family History: Reviewed & Not Pertinent Parental Family History Reviewed: Yes Children Family History Reviewed: Yes Sibling(s) Family History Reviewed.: Yes Medication/Allergy Home Medications: Calcium Carbonate [Calcium] 1,200 mg PO DAILY 07/04/19 Brinzolamide/Brimonidine Tart [Simbrinza 1%-0.2% Eye Drops] 1 drop OD BID 04/12/20 Ergocalciferol (Vitamin D2) [Drisdol 50,000 unit (1.25MG) Capsule] 50,000 unit PO MO 04/12/20 Ferrous Sulfate [Feosol 325 mg Tablet] 325 mg PO DAILY 04/12/20 Ibandronate Sodium [Boniva] 150 mg PO .MONTHLY 04/12/20 Losartan Potassium [Cozaar 50 mg Tablet] 50 mg PO DAILY 04/12/20 Omeprazole 20 mg PO DAILY 04/12/20 Valacyclovir HCl [Valtrex 500 mg Tablet] 500 mg PO DAILY 04/12/20 Allergies/Adverse Reactions: No Known Allergies Allergy (Verified 04/14/20 20:23) Review of Systems Constitutional: ABSENT: chills, fever(s), headache(s), weight gain, weight loss Eyes: ABSENT: visual disturbances Ears: ABSENT: hearing changes Cardiovascular: ABSENT: chest pain, dyspnea on exertion, edema, orthropnea, palpitations Respiratory: ABSENT: cough, hemoptysis Gastrointestinal: ABSENT: abdominal pain, constipation, diarrhea, hematemesis, hematochezia, nausea, vomiting Genitourinary: ABSENT: dysuria, hematuria Musculoskeletal: ABSENT: joint swelling Integumentary: ABSENT: rash, wounds Neurological: ABSENT: abnormal gait, abnormal speech, confusion, dizziness, focal weakness, syncope Psychiatric: ABSENT: anxiety, depression, homidical ideation, suicidal ideation Endocrine: ABSENT: cold intolerance, heat intolerance, menstrual abnormalities, polydipsia, polyuria Hematologic/Lymphatic: ABSENT: easy bleeding, easy bruising, lymphadenopathy Physical Exam Vital Signs: Temp Pulse Resp BP Pulse Ox 98.4 F 112 H 15 137/76 H 98 04/15/20 06:01 04/15/20 06:42 04/15/20 07:01 04/15/20 07:01 04/15/20 07:01 Intake & Output 04/14/20 04/15/20 04/16/20 06:59 06:59 06:59 Intake Total 1050 Balance 1050 Weight 54.2 kg General appearance: PRESENT: no acute distress, well-developed, well-nourished Head exam: PRESENT: atraumatic, normocephalic Eye exam: PRESENT: conjunctiva pink, EOMI, PERRLA. ABSENT: scleral icterus Ear exam: PRESENT: normal external ear exam Mouth exam: PRESENT: moist, tongue midline Neck exam: PRESENT: full ROM. ABSENT: carotid bruit, JVD, lymphadenopathy, thyromegaly Respiratory exam: PRESENT: clear to auscultation tavia Cardiovascular exam: PRESENT: RRR. ABSENT: diastolic murmur, rubs, systolic murmur Pulses: PRESENT: normal dorsalis pedis pul, +2 pedal pulses bilateral Vascular exam: PRESENT: normal capillary refill GI/Abdominal exam: PRESENT: normal bowel sounds, soft. ABSENT: distended, guarding, mass, organolmegaly, rebound, tenderness Rectal exam: PRESENT: deferred Musculoskeletal exam: PRESENT: ambulatory Neurological exam: PRESENT: alert, awake, oriented to person, oriented to place, oriented to time, oriented to situation, CN II-XII grossly intact. ABSENT: motor sensory deficit Psychiatric exam: PRESENT: appropriate affect, normal mood. ABSENT: homicidal ideation, suicidal ideation Skin exam: PRESENT: dry, intact, warm. ABSENT: cyanosis, rash Results Laboratory Results: 04/15/20 05:57 04/15/20 05:57 04/14/20 04/14/20 04/14/20 20:15 20:15 20:15 WBC 3.5 L RBC 4.22 Hgb 12.8 Hct 37.7 MCV 89 MCH 30.3 MCHC 33.9 RDW 14.3 H Plt Count 94 L Seg Neutrophils % 53.9 Sodium 138.4 Potassium 4.1 Chloride 106 Carbon Dioxide 24 Anion Gap 8 BUN 16 Creatinine 1.04 Est GFR ( Amer) > 60 Glucose 111 H Lactic Acid 1.4 Calcium 9.5 Total Bilirubin 0.6 AST 26 Alkaline Phosphatase 78 Total Protein 6.1 L Albumin 3.7 Triglycerides Cholesterol LDL Cholesterol Direct VLDL Cholesterol HDL Cholesterol Urine Color Urine Appearance Urine pH Ur Specific [place] Urine Protein Urine Glucose (UA) Urine Ketones Urine Blood Urine Nitrite Ur Leukocyte Esterase Urine WBC (Auto) Urine RBC (Auto) 04/15/20 04/15/20 04/15/20 01:09 05:57 05:57 WBC 2.7 L RBC 3.61 L Hgb 11.1 L Hct 32.2 L MCV 89 MCH 30.9 MCHC 34.6 RDW 14.0 Plt Count 75 L Seg Neutrophils % 38.2 L Sodium 138.3 Potassium 3.7 Chloride 109 H Carbon Dioxide 22 Anion Gap 7 BUN 16 Creatinine 0.83 Est GFR ( Amer) > 60 Glucose 82 Lactic Acid Calcium 8.5 Total Bilirubin AST Alkaline Phosphatase Total Protein Albumin Triglycerides 141 Cholesterol 141.08 LDL Cholesterol Direct 73 VLDL Cholesterol 28.0 HDL Cholesterol 36 L Urine Color YELLOW Urine Appearance SLIGHTLY-CLOUDY Urine pH 5.0 Ur Specific [place] 1.020 Urine Protein 30 H Urine Glucose (UA) NEGATIVE Urine Ketones NEGATIVE Urine Blood NEGATIVE Urine Nitrite NEGATIVE Ur Leukocyte Esterase TRACE H Urine WBC (Auto) 18 Urine RBC (Auto) 2 04/14/20 04/14/20 04/14/20 20:15 20:15 22:31 Creatine Kinase 71 180 H CK-MB (CK-2) Troponin I 0.026 04/14/20 04/15/20 04/15/20 22:31 05:57 05:57 Creatine Kinase 222 H CK-MB (CK-2) 14.40 H 16.90 H Troponin I 0.028 0.026 Impressions: Head CT 04/14/20 19:59 IMPRESSION: 1. No acute intracranial hemorrhage is seen. 2. Mild cerebral atrophy and periventricular white matter changes are seen. If there is persistent clinical concern for a neurologic deficit, consider MRI brain with diffusion-weighted sequences for further evaluation. Assessment & Plan - Diagnosis (1) Atrial fibrillation Qualifiers: Atrial fibrillation type: unspecified Qualified Code(s): I48.91 - Unspecified atrial fibrillation Is this a current diagnosis for this admission?: Yes Plan: We will start the patient on a small dose of beta-isai as per discussed with Dr. Kavin Morrison the 81 mg aspirin is okay with the business administration professor Patient unable to take any anticoagulations due to the pancytopenia (2) TIA (transient ischemic attack) Is this a current diagnosis for this admission?: Yes Plan: Patient's have a CT scan is all negative recent MRI MRA all negative will continues the aspirin and statin (3) History of cerebrovascular disease Is this a current diagnosis for this admission?: Yes (4) History of intracranial hemorrhage Is this a current diagnosis for this admission?: Yes (5) Hypertension Qualifiers: Hypertension type: essential hypertension Qualified Code(s): I10 - Essential (primary) hypertension Is this a current diagnosis for this admission?: Yes Plan: Continues the current medications (6) Pancytopenia Is this a current diagnosis for this admission?: Yes Plan: Follow-up with the business administration professor as per discussed with her today patient is probably okay right now follow outpatients for bone marrow (7) UTI (urinary tract infection) Qualifiers: Urinary tract infection type: site unspecified Is this a current diagnosis for this admission?: Yes Plan: Continues the Rocephin repeat the urine culture (8) Anxiety disorder Qualifiers: Anxiety disorder type: generalized anxiety disorder Is this a current diagnosis for this admission?: Yes Plan: Continues the BuSpar - Time Time Spent: 50 to 70 Minutes Medications reviewed and adjusted accordingly: Yes Anticipated Discharge Disposition: Home with Home Health Anticipated Discharge Timeframe: within 48 hours - Inpatient Certification Based on my medical assessment, after consideration of the patient's comorbidities, presenting symptoms, or acuity I expect that the services needed warrant INPATIENT care.: Yes I certify that my determination is in accordance with my understanding of Medicare's requirements for reasonable and necessary INPATIENT services [42 CFR 412.3e].: Yes Medical Necessity: Significant Comorbidiites Make Outpatient Treatment Too Risky, Need Close Monitoring Due to Risk of Patient Decompensation Post Hospital Care: D/C Senior Wealth Advisor Documentation - Plan Summary Plan Summary: Patient is currently doing well patient wants to go home Discussed with the patient still need to be further evaluate but patient said that she feel better at home when she does not want to go to the rehab Discussed with the patient's caregiver regarding the patient's current conditions and will inform the patient's son
--- NOTE | 2020-04-15 11:07 | PDOC CONSULTATION ---
Consultation Consult Date: 04/15/20 Provider Consulted: ALEXANDRA MCARTHUR Consult reason:: Hematology/Oncology consulation was requested for patient with pancytopenia. History of Present Illness Admission Date/PCP: 04/14/20 21:47 TERRENCE LEGGETT MD History of Present Illness: LINDSEY ART is a 84 year old female with long-standing history of pancytopenia. She was followed by Dr. Segura in the past. I first met the patient earlier this week during her last admission. She has an extensive me dical history including TIAs, intracranial hemorrhage, and A-fib. All anticoagulation/ASA had been stopped due to the prior brain hemorrhage. Bone marrow biopsy had been recommended in the past, but her blood counts have been stable and other medical problems were thought to be more pressing. Today, she returns after less than 24 hours at home with further signs of neurologic changes which have again resolved upon arrival to the ED. She states she was found to have a UTI. She states that she feels fine and wants to go home again. Past Medical History Cardiac Medical History: Reports: Coronary Artery Disease - 2004 CARDIAC STENTS , Hyperlipidema, Hypertension Denies: Myocardial Infarction Pulmonary Medical History: Denies: Asthma, Bronchitis, Chronic Obstructive Pulmonary Disease (COPD), Pneumonia Neurological Medical History: Denies: Seizures Musculoskeltal Medical History: Reports: Arthritis - GENERALIZED Psychiatric Medical History: Reports: Depression Hematology: Reports: Anemia - HX Past Surgical History Past Surgical History: Reports: Appendectomy, Cholecystectomy, Coronary Stent, Hysterectomy, Orthopedic Surgery Social History Smoking Status: Never Smoker Frequency of Alcohol Use: None Hx Recreational Drug Use: No Drugs: None Hx Prescription Drug Abuse: No Family History Parental Family History Reviewed: Yes Children Family History Reviewed: Yes Sibling(s) Family History Reviewed.: Yes Medication/Allergy Home Medications: Calcium Carbonate [Calcium] 1,200 mg PO DAILY 07/04/19 Brinzolamide/Brimonidine Tart [Simbrinza 1%-0.2% Eye Drops] 1 drop OD BID 04/12/20 Ergocalciferol (Vitamin D2) [Drisdol 50,000 unit (1.25MG) Capsule] 50,000 unit PO MO 04/12/20 Ferrous Sulfate [Feosol 325 mg Tablet] 325 mg PO DAILY 04/12/20 Ibandronate Sodium [Boniva] 150 mg PO .MONTHLY 04/12/20 Losartan Potassium [Cozaar 50 mg Tablet] 50 mg PO DAILY 04/12/20 Omeprazole 20 mg PO DAILY 04/12/20 Valacyclovir HCl [Valtrex 500 mg Tablet] 500 mg PO DAILY 04/12/20 Allergies/Adverse Reactions: No Known Allergies Allergy (Verified 04/14/20 20:23) Review of Systems Constitutional: ABSENT: fever(s), headache(s) Eyes: ABSENT: visual disturbances Ears: ABSENT: hearing changes Nose, Mouth, and Throat: ABSENT: sore throat Cardiovascular: ABSENT: chest pain Respiratory: ABSENT: dyspnea Gastrointestinal: ABSENT: constipation, nausea Genitourinary: ABSENT: dysuria Integumentary: ABSENT: rash Neurological: PRESENT: as per HPI Hematologic/Lymphatic: ABSENT: easy bleeding Physical Exam Vital Signs: Temp Pulse Resp BP Pulse Ox 98 F 111 H 20 152/87 H 98 04/15/20 08:00 04/15/20 10:34 04/15/20 09:00 04/15/20 09:01 04/15/20 09:00 Intake & Output 04/14/20 04/15/20 04/16/20 06:59 06:59 06:59 Intake Total 1050 Balance 1050 Weight 54.2 kg General appearance: PRESENT: no acute distress, well-developed, well-nourished Exam: 84 year old female. Head exam: PRESENT: atraumatic, normocephalic Eye exam: PRESENT: EOMI, PERRLA Mouth exam: PRESENT: moist, tongue midline Respiratory exam: PRESENT: clear to auscultation tavia, unlabored Cardiovascular exam: PRESENT: RRR GI/Abdominal exam: PRESENT: soft. ABSENT: tenderness Extremities exam: ABSENT: pedal edema Musculoskeletal exam: PRESENT: normal inspection Neurological exam: PRESENT: alert, awake Psychiatric exam: PRESENT: appropriate affect Skin exam: PRESENT: normal color Results Laboratory Results: 04/15/20 05:57 04/15/20 05:57 04/14/20 04/14/20 04/14/20 20:15 20:15 20:15 WBC 3.5 L RBC 4.22 Hgb 12.8 Hct 37.7 MCV 89 MCH 30.3 MCHC 33.9 RDW 14.3 H Plt Count 94 L Seg Neutrophils % 53.9 Sodium 138.4 Potassium 4.1 Chloride 106 Carbon Dioxide 24 Anion Gap 8 BUN 16 Creatinine 1.04 Est GFR ( Amer) > 60 Glucose 111 H Lactic Acid 1.4 Calcium 9.5 Total Bilirubin 0.6 AST 26 Alkaline Phosphatase 78 Total Protein 6.1 L Albumin 3.7 Triglycerides Cholesterol LDL Cholesterol Direct VLDL Cholesterol HDL Cholesterol Urine Color Urine Appearance Urine pH Ur Specific [place] Urine Protein Urine Glucose (UA) Urine Ketones Urine Blood Urine Nitrite Ur Leukocyte Esterase Urine WBC (Auto) Urine RBC (Auto) 04/15/20 04/15/20 04/15/20 01:09 05:57 05:57 WBC 2.7 L RBC 3.61 L Hgb 11.1 L Hct 32.2 L MCV 89 MCH 30.9 MCHC 34.6 RDW 14.0 Plt Count 75 L Seg Neutrophils % 38.2 L Sodium 138.3 Potassium 3.7 Chloride 109 H Carbon Dioxide 22 Anion Gap 7 BUN 16 Creatinine 0.83 Est GFR ( Amer) > 60 Glucose 82 Lactic Acid Calcium 8.5 Total Bilirubin AST Alkaline Phosphatase Total Protein Albumin Triglycerides 141 Cholesterol 141.08 LDL Cholesterol Direct 73 VLDL Cholesterol 28.0 HDL Cholesterol 36 L Urine Color YELLOW Urine Appearance SLIGHTLY-CLOUDY Urine pH 5.0 Ur Specific [place] 1.020 Urine Protein 30 H Urine Glucose (UA) NEGATIVE Urine Ketones NEGATIVE Urine Blood NEGATIVE Urine Nitrite NEGATIVE Ur Leukocyte Esterase TRACE H Urine WBC (Auto) 18 Urine RBC (Auto) 2 04/14/20 04/14/20 04/14/20 20:15 20:15 22:31 Creatine Kinase 71 180 H CK-MB (CK-2) Troponin I 0.026 04/14/20 04/15/20 04/15/20 22:31 05:57 05:57 Creatine Kinase 222 H CK-MB (CK-2) 14.40 H 16.90 H Troponin I 0.028 0.026 Impressions: Head CT 04/14/20 19:59 IMPRESSION: 1. No acute intracranial hemorrhage is seen. 2. Mild cerebral atrophy and periventricular white matter changes are seen. If there is persistent clinical concern for a neurologic deficit, consider MRI brain with diffusion-weighted sequences for further evaluation. Assessment & Plan - Diagnosis (1) Pancytopenia Is this a current diagnosis for this admission?: Yes Plan: This has been stable over the past 2 years. As long as PLT >50, I see no contraindication to anticoagulation, however, will need to continue to watch for bleeding. If any significant changes in her blood counts, may still consider bone marrow biopsy. However, I believe neurologic and cardiology concerns are more significant at present. - Plan Summary Plan Summary: Patient was discussed with Dr. Leggett. I will be happy to continue to follow her with you.
--- NOTE | 2020-04-15 11:45 | PDOC CONSULTATION ---
Consultation Consult Date: 04/15/20 Attending physician:: TERRENCE KHAN Provider Consulted: NOE FLANNERY Consult reason:: Atrial fibrillation History of Present Illness Admission Date/PCP: 04/14/20 21:47 TERRENCE KHAN MD Patient complains of: Weakness History of Present Illness: LINDSEY ART is a 84 year old female With the following active problems 1. Pancytopenia 2. Paroxysmal atrial fibrillation 3. Intracranial hemorrhage 4. Systemic hypertension 5. Dyslipidemia Patient was recently admitted to the hospital on account of TIA symptoms. She did not have any new neurological insults. Her symptoms were attribute it to TIA and also perhaps anemia. She had presented with significantly low hemoglobin and received 1 unit of blood transfusion. Her hemoglobin improved dramatically which led to this is patient that one of the blood draws were suspected. Neither event with correction of anemia symptoms improved. During the period of hospital stay last time the patient's heart rate varied anywhere from the mid 40 bpm range to 50 to 60 bpm. She was in bed most of the time and did not have any symptoms suggestive of chronotropic incompetence. During the last admission I felt that the patient was not an urgent need of permanent pacing given absence of profound sustained bradycardia or symptomatic pauses. Patient was discharged in stable condition and presents again with symptoms of weakness. In the emergency room which she was found to be in atrial fibrillation with rapid ventricular response with low blood pressures. However the ventricular rate responded without intervention and came down to the low 100s. Subsequently the blood pressure also improved. In my conversation with the ED physician we agreed to pursue rate control measures with digoxin and perhaps beta-isai on account of low normal blood pressures. Since admission to the hospital patient is done much better. She has been evaluated by primary care physician as well as oncology hematology. No further work-up is planned for pancytopenia since her platelet count is over 70,000. She is not actively bleeding. Past Medical History Cardiac Medical History: Reports: Coronary Artery Disease - 2004 CARDIAC STENTS , Hyperlipidema, Hypertension Denies: Myocardial Infarction Pulmonary Medical History: Denies: Asthma, Bronchitis, Chronic Obstructive Pulmonary Disease (COPD), Pn [place] Neurological Medical History: Denies: Seizures Musculoskeltal Medical History: Reports: Arthritis - GENERALIZED Psychiatric Medical History: Reports: Depression Hematology: Reports: Anemia - HX Past Surgical History Past Surgical History: Reports: Appendectomy, Cholecystectomy, Coronary Stent, Hysterectomy, Orthopedic Surgery Social History Smoking Status: Never Smoker Frequency of Alcohol Use: None Hx Recreational Drug Use: No Drugs: None Hx Prescription Drug Abuse: No Family History Family History: Reviewed & Not Pertinent Parental Family History Reviewed: Yes - No familial illnesses Children Family History Reviewed: NA Sibling(s) Family History Reviewed.: NA Medication/Allergy Home Medications: Calcium Carbonate [Calcium] 1,200 mg PO DAILY 07/04/19 Brinzolamide/Brimonidine Tart [Simbrinza 1%-0.2% Eye Drops] 1 drop OD BID 04/12/20 Ergocalciferol (Vitamin D2) [Drisdol 50,000 unit (1.25MG) Capsule] 50,000 unit PO MO 04/12/20 Ferrous Sulfate [Feosol 325 mg Tablet] 325 mg PO DAILY 04/12/20 Ibandronate Sodium [Boniva] 150 mg PO .MONTHLY 04/12/20 Losartan Potassium [Cozaar 50 mg Tablet] 50 mg PO DAILY 04/12/20 Omeprazole 20 mg PO DAILY 04/12/20 Valacyclovir HCl [Valtrex 500 mg Tablet] 500 mg PO DAILY 04/12/20 Allergies/Adverse Reactions: No Known Allergies Allergy (Verified 04/14/20 20:23) Review of Systems Constitutional: PRESENT: as per HPI, fatigue, weight loss Cardiovascular: ABSENT: as per HPI, chest pain, dyspnea on exertion, edema, orthropnea, other Respiratory: ABSENT: as per HPI, cough, dyspnea, hemoptysis, sputum, other Gastrointestinal: ABSENT: as per HPI, abdominal pain, bloating, coffee ground emesis, constipation, diarrhea, dysphagia, heartburn, hematemesis, hematochezia, melena, nausea, vomiting, other Genitourinary: ABSENT: as per HPI, difficulty urinating, dysuria, hematuria, nocturia, other Neurological: PRESENT: numbness, weakness. ABSENT: as per HPI, abnormal gait, abnormal movements, abnormal speech, confusion, convulsions, dizziness, focal weakness, frequent falls, lack of coordination, memory loss, paresthesias, restless legs, syncope, tingling, tremor(s), vertigo, other Hematologic/Lymphatic: PRESENT: other - Anemia Physical Exam Vital Signs: Temp Pulse Resp BP Pulse Ox 98 F 111 H 20 152/87 H 98 04/15/20 08:00 04/15/20 10:34 04/15/20 09:00 04/15/20 09:01 04/15/20 09:00 Intake & Output 04/14/20 04/15/20 04/16/20 06:59 06:59 06:59 Intake Total 1050 Balance 1050 Weight 54.2 kg General appearance: PRESENT: no acute distress, cooperative, thin, well- developed Head exam: PRESENT: atraumatic, normocephalic Eye exam: PRESENT: conjunctiva pale Mouth exam: PRESENT: moist Respiratory exam: PRESENT: clear to auscultation tavia, symmetrical, unlabored Cardiovascular exam: PRESENT: irregular rhythm, +S1, +S2 Pulses: PRESENT: normal radial pulses GI/Abdominal exam: PRESENT: soft Rectal exam: PRESENT: deferred Musculoskeletal exam: PRESENT: normal inspection Neurological exam: PRESENT: alert, awake, oriented to person, oriented to place, oriented to time, oriented to situation Psychiatric exam: PRESENT: appropriate affect Skin exam: PRESENT: dry, intact Results Laboratory Results: 04/15/20 05:57 04/15/20 05:57 04/14/20 04/14/20 04/14/20 20:15 20:15 20:15 WBC 3.5 L RBC 4.22 Hgb 12.8 Hct 37.7 MCV 89 MCH 30.3 MCHC 33.9 RDW 14.3 H Plt Count 94 L Seg Neutrophils % 53.9 Sodium 138.4 Potassium 4.1 Chloride 106 Carbon Dioxide 24 Anion Gap 8 BUN 16 Creatinine 1.04 Est GFR ( Amer) > 60 Glucose 111 H Lactic Acid 1.4 Calcium 9.5 Total Bilirubin 0.6 AST 26 Alkaline Phosphatase 78 Total Protein 6.1 L Albumin 3.7 Triglycerides Cholesterol LDL Cholesterol Direct VLDL Cholesterol HDL Cholesterol Urine Color Urine Appearance Urine pH Ur Specific [place] Urine Protein Urine Glucose (UA) Urine Ketones Urine Blood Urine Nitrite Ur Leukocyte Esterase Urine WBC (Auto) Urine RBC (Auto) 04/15/20 04/15/20 04/15/20 01:09 05:57 05:57 WBC 2.7 L RBC 3.61 L Hgb 11.1 L Hct 32.2 L MCV 89 MCH 30.9 MCHC 34.6 RDW 14.0 Plt Count 75 L Seg Neutrophils % 38.2 L Sodium 138.3 Potassium 3.7 Chloride 109 H Carbon Dioxide 22 Anion Gap 7 BUN 16 Creatinine 0.83 Est GFR ( Amer) > 60 Glucose 82 Lactic Acid Calcium 8.5 Total Bilirubin AST Alkaline Phosphatase Total Protein Albumin Triglycerides 141 Cholesterol 141.08 LDL Cholesterol Direct 73 VLDL Cholesterol 28.0 HDL Cholesterol 36 L Urine Color YELLOW Urine Appearance SLIGHTLY-CLOUDY Urine pH 5.0 Ur Specific [place] 1.020 Urine Protein 30 H Urine Glucose (UA) NEGATIVE Urine Ketones NEGATIVE Urine Blood NEGATIVE Urine Nitrite NEGATIVE Ur Leukocyte Esterase TRACE H Urine WBC (Auto) 18 Urine RBC (Auto) 2 04/14/20 04/14/20 04/14/20 20:15 20:15 22:31 Creatine Kinase 71 180 H CK-MB (CK-2) Troponin I 0.026 04/14/20 04/15/20 04/15/20 22:31 05:57 05:57 Creatine Kinase 222 H CK-MB (CK-2) 14.40 H 16.90 H Troponin I 0.028 0.026 EKG Comments: Twelve-lead EKG 04/14/2020. Independently viewed by me. Atrial fibrillation rapid ventricular response [address] 04/14/2020 No acute intracranial hemorrhage. Mild cerebral atrophy Hemoglobin 11.9 Hematocrit 32.2 Platelet count 75 White blood cell count 2.7 Impressions: Head CT 04/14/20 19:59 IMPRESSION: 1. No acute intracranial hemorrhage is seen. 2. Mild cerebral atrophy and periventricular white matter changes are seen. If there is persistent clinical concern for a neurologic deficit, consider MRI brain with diffusion-weighted sequences for further evaluation. Assessment & Plan - Diagnosis (1) Hypertension Qualifiers: Hypertension type: essential hypertension Qualified Code(s): I10 - Esse ntial (primary) hypertension Is this a current diagnosis for this admission?: Yes Plan: Patient is presently hypertensive She may need additional agents for management of hypertension Initially at presentation she was hypotensive on account of probably low-grade infection and also perhaps atrial fibrillation rapid ventricular response With correction of ventricular rate blood pressure has improved. (2) TIA (transient ischemic attack) Is this a current diagnosis for this admission?: Yes Plan: Patient who has had intracranial hemorrhage Clearance from neurology is necessary to pursue systemic anticoagulation With ongoing blood dyscrasias full dose of systemic anticoagulation with a novel agent could be troublesome. Oncology suggest that it may be reasonable to pursue antiplatelet therapy. At least low-dose aspirin therapy would be reasonable given history of sugge stive of TIAs and history of atrial arrhythmia/atrial fibrillation. (3) Pancytopenia Is this a current diagnosis for this admission?: Yes Plan: Being followed by hematology. Continue to watch counts With present hemoglobin level no transfusion is indicated. Platelets are still low but no active bleeding is noted. (4) Atrial fibrillation Qualifiers: Atrial fibrillation type: unspecified Qualified Code(s): I48.91 - Unspecified atrial fibrillation Is this a current diagnosis for this admission?: Yes Plan: Paroxysmal atrial fibrillation Treatment options limited to rate control on account of inability to pursue full dose systemic anticoagulation given history of intracranial hemorrhage Given this present situation would recommend low-dose beta-isai together with or without digoxin. Metoprolol 12.5 mg p.o. twice daily Consider digoxin 0.125 mg daily orally Can also consider calcium channel blockers Most recent assessment of LV function showed preserved ejection fraction and no significant valve lesion In the absence of profound sustained bradycardia with heart rates below 40 bpm and or symptomatic pauses it is difficult to justify pursuing permanent pacing in the current context especially with blood dyscrasias, anemia as well as thrombocytopenia as well as leukopenia. There is increased risk of perioperative infection and bleeding in the circumstances. Dr. Khan and I had a detailed discussion about her stroke risk versus risk of bleeding on account of gait instability and fragility together with superimposed blood dyscrasia with profound thrombocytopenia We both feel that full dose systemic anticoagulation would put the patient at increased risk of harm although strokes could potentially be prevented.
[2020-04-15] MEDS: METOPROLOL TARTRATE 25 MG TABLET PO SCH ×2 (12:37→21:10)
[2020-04-15] MEDS: ASPIRIN 81 MG TABLET, ENT COATED PO SCH (12:37)
[2020-04-15 12:38] LABS: CREATINE KINASE MB 13.5 ng/mL (<4.55); TROPONIN I 0.016 ng/mL
[2020-04-15] MEDS: DIGOXIN 0.125 MG TABLET PO SCH (12:41)
[2020-04-15] MEDS ORDERED: NORMAL SALINE 1000 ML 1,000 ML IV PRN (17:55)
[2020-04-15] MEDS ORDERED: [UNRECOGNIZED DRUG - OTHER] OD SCH (18:00)
[2020-04-15] MEDS ORDERED: BRINZOLAMIDE OD SCH (18:00)
[2020-04-15] MEDS ORDERED: BRIMONIDINE TART OD SCH (18:00)
--- NOTE | 2020-04-15 19:01 | EKG REPORT ---
SEVERITY:- OTHERWISE NORMAL ECG - SINUS RHYTHM ATRIAL PREMATURE COMPLEX MINIMAL ST DEPRESSION, ANTEROLATERAL LEADS : Confirmed by: Haydee García MD 15-Apr-2020 19:00:54
[2020-04-15] MEDS: ATORVASTATIN CALCIUM 20 MG TABLET PO SCH (21:10)
[2020-04-15] MEDS ORDERED: CEFTRIAXONE 1 GM/D5W RTU 1 GM/50 ML RTUPB IV SCH (22:00)
[2020-04-16 06:15] LABS: ABSOLUTE LYMPHOCYTES (AUTO) 0.9 10^3/uL (0.5-4.7); ABSOLUTE MONOCYTES (AUTO) 0.2 10^3/uL (0.1-1.4); ABSOLUTE NEUT (AUTO) 2.5 10^3/uL (1.7-8.2); BASOPHILS % (AUTO) 0.3 % (0-2); EOSINOPHILS % (AUTO) 0.6 % (0-6); HEMOGLOBIN 10.5 g/dL (12.0-15.5); LYMPHOCYTES % (AUTO) 25.4 % (13-45); MEAN CORPUSCULAR HEMOGLOBIN 31.3 pg (27.0-33.4); MEAN CORPUSCULAR VOLUME 89 fl (80-97); MONOCYTES % (AUTO) 6.4 % (3-13); RED BLOOD COUNT 3.35 10^6/uL (3.72-5.28); RED CELL DISTRIBUTION WIDTH 14.3 % (11.5-14.0); SEGMENTED NEUTROPHILS % (AUTO) 67.3 % (42-78); TOTAL CELLS COUNTED % (AUTO) 100 %; WHITE BLOOD COUNT 3.7 10^3/uL (4.0-10.5)
[2020-04-16 06:36] LABS: ANION GAP 8 (5-19); BLOOD UREA NITROGEN 15 mg/dL (7-20); CALCIUM 8.4 mg/dL (8.4-10.2); CARBON DIOXIDE 20 mmol/L (22-30); CHLORIDE 112 mmol/L (98-107); GLUCOSE 81 mg/dL (75-110); POTASSIUM 3.7 mmol/L (3.6-5.0)
[2020-04-16 06:59] LABS: PLATELET COUNT 73 10^3/uL (150-450)
--- NOTE | 2020-04-16 08:26 | PDOC PROGRESS REPORT ---
Subjective Date:: 04/16/20 Subjective:: Patient states that she was able to walk to the bathroom with assistance. She a gain insists that she will be fine at home. However, her ride will not be here until after 5 pm. I discussed short rehab stay with her for strength, and she declines. No fevers, no evidence of bleeding. She was started on ASA 81 mg. Reason For Visit: TIA (TRANSIENT ISCHEMIC ATTACK),ATRIAL Physical Exam Vital Signs: Temp Pulse Resp BP Pulse Ox 98.4 F 66 20 144/63 H 97 04/16/20 04:35 04/16/20 04:35 04/16/20 04:35 04/16/20 04:35 04/16/20 04:35 Intake & Output 04/15/20 04/16/20 04/17/20 06:59 06:59 06:59 Intake Total 1050 460 Balance 1050 460 Weight 54.2 kg 51.1 kg General appearance: PRESENT: no acute distress, well-developed, well-nourished Head exam: PRESENT: normocephalic Eye exam: PRESENT: EOMI Respiratory exam: PRESENT: unlabored Rectal exam: PRESENT: normal inspection Extremities exam: ABSENT: pedal edema Neurological exam: PRESENT: alert, awake, other - Able to move all 4 extremities. No obvious weakness. Skin exam: PRESENT: normal color Results Laboratory Results: 04/16/20 05:50 04/16/20 05:50 04/16/20 04/16/20 05:50 05:50 WBC 3.7 L RBC 3.35 L Hgb 10.5 L Hct 30.0 L MCV 89 MCH 31.3 MCHC 35.0 RDW 14.3 H Plt Count 73 L Seg Neutrophils % 67.3 Sodium 140.1 Potassium 3.7 Chloride 112 H Carbon Dioxide 20 L Anion Gap 8 BUN 15 Creatinine 0.72 Est GFR ( Amer) > 60 Glucose 81 Calcium 8.4 04/14/20 04/14/20 04/14/20 20:15 20:15 22:31 Creatine Kinase 71 180 H CK-MB (CK-2) Troponin I 0.026 04/14/20 04/15/20 04/15/20 22:31 05:57 05:57 Creatine Kinase 222 H CK-MB (CK-2) 14.40 H 16.90 H Troponin I 0.028 0.026 04/15/20 04/15/20 11:45 11:45 Creatine Kinase 200 H CK-MB (CK-2) 13.50 H Troponin I 0.016 Impressions: Head CT 04/14/20 19:59 IMPRESSION: 1. No acute intracranial hemorrhage is seen. 2. Mild cerebral atrophy and periventricular white matter changes are seen. If there is persistent clinical concern for a neurologic deficit, consider MRI brain with diffusion-weighted sequences for further evaluation. Assessment & Plan - Diagnosis (1) Pancytopenia Is this a current diagnosis for this admission?: Yes Plan: Patient was discussed with Dr. Leggett. Her blood counts remain stable. As long as PLT >50, ASA should be safe. I will see her again as outpatient in the office and follow counts. No indication for transfusion at this time. - Time Time Spent with patient: 15-24 minutes
[2020-04-16] MEDS ORDERED: CALCIUM CARBONATE 600 MG TABLET PO SCH (10:00)
[2020-04-16] MEDS ORDERED: VALACYCLOVIR HCL 500 MG TABLET PO SCH (10:00)
[2020-04-16] MEDS ORDERED: FERROUS SULFATE 325 MG TABLET PO SCH (10:00)
[2020-04-16] MEDS: ASPIRIN 81 MG TABLET, ENT COATED PO SCH (10:07)
[2020-04-16] MEDS: METOPROLOL TARTRATE 25 MG TABLET PO SCH (10:07)
[2020-04-16] MEDS: DIGOXIN 0.125 MG TABLET PO SCH (10:08)
--- NOTE | 2020-04-16 12:57 | PDOC DISCHARGE SUMMARY ---
Impression - Admit/DC Date/PCP Admission Date/Primary Care Provider: 04/14/20 21:47 TERRENCE KHAN MD Discharge Date: 04/16/20 - Discharge Diagnosis (1) Atrial fibrillation Is this a current diagnosis for this admission?: Yes (2) TIA (transient ischemic attack) Is this a current diagnosis for this admission?: Yes (3) History of cerebrovascular disease Is this a current diagnosis for this admission?: Yes (4) History of intracranial hemorrhage Is this a current diagnosis for this admission?: Yes (5) Hypertension Is this a current diagnosis for this admission?: Yes (6) Pancytopenia Is this a current diagnosis for this admission?: Yes (7) UTI (urinary tract infection) Is this a current diagnosis for this admission?: Yes (8) Anxiety disorder Is this a current diagnosis for this admission?: Yes - Additional Information Discharge Diet: Cardiac Referrals: ALEXANDRA MCARTHUR MD [ACTIVE STAFF] - 04/27/20 10:15 am (in 4-6 weeks for exam and CBC, if not already scheduled. ) TERRENCE KHAN MD [Primary Care Provider] - 04/20/20 9:30 am Prescriptions: Aspirin [Ecotrin 81 mg EC Tablet] 81 mg PO DAILY #30 tabec Metoprolol Tartrate [Lopressor 25 mg Tablet] 12.5 mg PO Q12 #60 tablet Home Medications: Calcium Carbonate [Calcium] 1,200 mg PO DAILY 07/04/19 Brinzolamide/Brimonidine Tart [Simbrinza 1%-0.2% Eye Drops] 1 drop OD BID 04/12/20 Ergocalciferol (Vitamin D2) [Drisdol 50,000 unit (1.25MG) Capsule] 50,000 unit PO MO 04/12/20 Ferrous Sulfate [Feosol 325 mg Tablet] 325 mg PO DAILY 04/12/20 Ibandronate Sodium [Boniva] 150 mg PO .MONTHLY 04/12/20 Omeprazole 20 mg PO DAILY 04/12/20 Valacyclovir HCl [Valtrex 500 mg Tablet] 500 mg PO DAILY 04/12/20 Aspirin [Ecotrin 81 mg EC Tablet] 81 mg PO DAILY #30 tabec 04/16/20 Metoprolol Tartrate [Lopressor 25 mg Tablet] 12.5 mg PO Q12 #60 tablet 04/16/20 History of Present Illiness History of Present Illness: LINDSEY ART is a 84 year old female Is a 84-year-old female with a history of the pancytopenia history of the hypertension history of the ischemic stroke in the past history of the tachybradycardia syndromes history of the atrial flutter basically discharged yesterday from the hospital because patients do not want to stay in the hospital noticed by the friends that the patient have a some weakness on the upper extremities and slurred speech and patients at this point brought to the emergency department 30 minutes the symptoms pretty much all resolved Patient's initial CT of the head was negative patient recently have MRI and MRA of the head was negative to Patient have echocardiograms done 2 days back was all stable seen by the paver at that point suggest no need for any kind of a pacemaker because patient heart rate was low 40 Patient's today's with a heart rate was 130 and A. fib giving the 2.5 mg Cardizem and as per discussed with Dr. Vale suggest to give her digoxin's patient's heart rate when I saw it running 90 range Patient's denied any chest pain no short of breath patient's platelet count is a 90 range start on aspirin as per discussed with the strap buckler is okay start the Lipitor due to the TIA type of the symptoms Patient unable to take an anticoagulations due to history of intracranial hemorrhage in the last year and history of the current pancytopenia Patient's today is in the emergency department denied any chest pain no short of breath patient's wants to go home again Discussed with the patient's caregiver Gladys today regarding the patient's current conditions and at this point very limited choice to give the patient's medication due to the pancytopenia is with advanced age not candidate for anticoagulations Patient is going to seen by Dr. Vale as per discussed with him for further evaluate about the rhythm issues Discussed with the strap buckler today's patient's primary need outpatients bone marrow biopsies discuss with the caregiver to inform the patient's son who will try to contact him regarding the patient's current conditions Hospital Course Hospital Course: This 84-year-old female present in the emergency department with a complaining of TIA type of the symptoms and the second time in a 1 week Patient's all symptoms when the ER was all resolved but patient's found A. fib with rapid ventricular response patient is giving the Cardizem and digoxin's patient's back to the baseline Patient have a significant history of the pancytopenia recently received a unit of blood and patient pending work-up for the bone marrow Also seen by Dr. Vale paver recently echocardiogram done was all stable patient at this point readmitting in the hospital again about the A. fib with a history of the bradycardia tacky syndromes According to Dr. Vale patient is not a candidate for any pacemaker at this point suggest a low-dose beta-isai and continues to monitor Discussed with the patient about pacemaker by Dr. Vale and patient is willing to not go for that procedure Patient at this point urgently no need for any pacemaker placement Patient also not a candidate for anticoagulations due to the pancytopenia with a history of the intracranial hemorrhage and frequent fall At this point discussed with the strap buckler suggest the 81 mg aspirin should be okay and continues a statin Discussed with the patient's son in [place] regarding the patient's current con ditions patients do not want to go and stay with him in patients do not want to go to the rehab facility again discussed with the caregiver locally here she had a regarding the patient's current conditions and continues to monitor while patient do not want to go to the rehab facility Still high risk for the TIA or strokelike symptoms because of the multiple comorbidity patients cannot take anticoagulations currently rate controlled Physical Exam Vital Signs: Temp Pulse Resp BP Pulse Ox 97.6 F 62 20 172/59 H 100 04/16/20 11:03 04/16/20 11:03 04/16/20 11:03 04/16/20 11:03 04/16/20 11:03 Intake & Output 04/15/20 04/16/20 04/17/20 06:59 06:59 06:59 Intake Total 1050 460 Balance 1050 460 Weight 54.2 kg 51.1 kg General appearance: PRESENT: no acute distress, well-developed, well-nourished Head exam: PRESENT: atraumatic, normocephalic Eye exam: PRESENT: conjunctiva pink, EOMI, PERRLA. ABSENT: scleral icterus Ear exam: PRESENT: normal external ear exam Mouth exam: PRESENT: moist, tongue midline Neck exam: ABSENT: carotid bruit, JVD, lymphadenopathy, thyromegaly Respiratory exam: PRESENT: clear to auscultation tavia. ABSENT: rales, rhonchi, wheezes Cardiovascular exam: PRESENT: RRR. ABSENT: diastolic murmur, rubs, systolic murmur Pulses: PRESENT: normal dorsalis pedis pul Vascular exam: PRESENT: normal capillary refill GI/Abdominal exam: PRESENT: normal bowel sounds, soft. ABSENT: distended, guarding, mass, organolmegaly, rebound, tenderness Rectal exam: PRESENT: deferred Extremities exam: PRESENT: full ROM. ABSENT: calf tenderness, clubbing, pedal edema Neurological exam: PRESENT: alert, awake, oriented to person, oriented to place, oriented to time, oriented to situation, CN II-XII grossly intact. ABSENT: motor sensory deficit Psychiatric exam: PRESENT: appropriate affect, normal mood. ABSENT: homicidal ideation, suicidal ideation Skin exam: PRESENT: dry, intact, warm. ABSENT: cyanosis, rash Results Laboratory Results: WBC 3.7 10^3/uL (4.0-10.5) L 04/16/20 05:50 RBC 3.35 10^6/uL (3.72-5.28) L 04/16/20 05:50 Hgb 10.5 g/dL (12.0-15.5) L 04/16/20 05:50 Hct 30.0 % (36.0-47.0) L 04/16/20 05:50 MCV 89 fl (80-97) 04/16/20 05:50 MCH 31.3 pg (27.0-33.4) 04/16/20 05:50 MCHC 35.0 g/dL (32.0-36.0) 04/16/20 05:50 RDW 14.3 % (11.5-14.0) H 04/16/20 05:50 Plt Count 73 10^3/uL (150-450) L 04/16/20 05:50 Lymph % (Auto) 25.4 % (13-45) 04/16/20 05:50 Williamson % (Auto) 6.4 % (3-13) 04/16/20 05:50 Eos % (Auto) 0.6 % (0-6) 04/16/20 05:50 Baso % (Auto) 0.3 % (0-2) 04/16/20 05:50 Absolute Neuts (auto) 2.5 10^3/uL (1.7-8.2) 04/16/20 05:50 Absolute Lymphs (auto) 0.9 10^3/uL (0.5-4.7) 04/16/20 05:50 Absolute Monos (auto) 0.2 10^3/uL (0.1-1.4) 04/16/20 05:50 Absolute Eos (auto) 0.0 10^3/uL (0.0-0.6) 04/16/20 05:50 Absolute Basos (auto) 0.0 10^3/uL (0.0-0.2) 04/16/20 05:50 Seg Neutrophils % 67.3 % (42-78) 04/16/20 05:50 PT 13.6 SEC (11.4-15.4) 04/14/20 20:15 INR 1.02 04/14/20 20:15 APTT 28.4 SEC (23.5-35.8) 04/14/20 20:15 Sodium 140.1 mmol/L (137-145) 04/16/20 05:50 Potassium 3.7 mmol/L (3.6-5.0) 04/16/20 05:50 Chloride 112 mmol/L (98-107) H 04/16/20 05:50 Carbon Dioxide 20 mmol/L (22-30) L 04/16/20 05:50 Anion Gap 8 (5-19) 04/16/20 05:50 BUN 15 mg/dL (7-20) 04/16/20 05:50 Creatinine 0.72 mg/dL (0.52-1.25) 04/16/20 05:50 Est GFR ( Amer) > 60 (>60) 04/16/20 05:50 Est GFR (MDRD) Non-Af > 60 (>60) 04/16/20 05:50 Glucose 81 mg/dL (75-110) 04/16/20 05:50 POC Glucose 109 mg/dL (70-110) 04/14/20 20:13 Lactic Acid 1.4 mmol/L (0.7-2.1) 04/14/20 20:15 Calcium 8.4 mg/dL (8.4-10.2) 04/16/20 05:50 Total Bilirubin 0.6 mg/dL (0.2-1.3) 04/14/20 20:15 Direct Bilirubin 0.2 mg/dL (0.0-0.4) 04/14/20 20:15 Neonat Total Bilirubin Not Reportable 04/14/20 20:15 Neonat Direct Bilirubin Not Reportable 04/14/20 20:15 Neonat Indirect Bili Not Reportable 04/14/20 20:15 AST 26 U/L (14-36) 04/14/20 20:15 ALT 13 U/L (<35) 04/14/20 20:15 Alkaline Phosphatase 78 U/L (38-126) 04/14/20 20:15 Creatine Kinase 200 U/L (30-135) H 04/15/20 11:45 CK-MB (CK-2) 13.50 ng/mL (<4.55) H 04/15/20 11:45 Troponin I 0.016 ng/mL 04/15/20 11:45 Total Protein 6.1 g/dL (6.3-8.2) L 04/14/20 20:15 Albumin 3.7 g/dL (3.5-5.0) 04/14/20 20:15 Triglycerides 141 mg/dL (<150) 04/15/20 05:57 Cholesterol 141.08 mg/dL (0-200) 04/15/20 05:57 LDL Cholesterol Direct 73 mg/dL (<100) 04/15/20 05:57 VLDL Cholesterol 28.0 mg/dL (10-31) 04/15/20 05:57 HDL Cholesterol 36 mg/dL (>40) L 04/15/20 05:57 Urine Color YELLOW 04/15/20 01:09 Urine Appearance SLIGHTLY-CLOUDY 04/15/20 01:09 Urine pH 5.0 (5.0-9.0) 04/15/20 01:09 Ur Specific Honor 1.020 04/15/20 01:09 Urine Protein 30 mg/dL (NEGATIVE) H 04/15/20 01:09 Urine Glucose (UA) NEGATIVE mg/dL (NEGATIVE) 04/15/20 01:09 Urine Ketones NEGATIVE mg/dL (NEGATIVE) 04/15/20 01:09 Urine Blood NEGATIVE (NEGATIVE) 04/15/20 01:09 Urine Nitrite NEGATIVE (NEGATIVE) 04/15/20 01:09 Urine Bilirubin NEGATIVE (NEGATIVE) 04/15/20 01:09 Urine Urobilinogen NEGATIVE mg/dL (<2.0) 04/15/20 01:09 Ur Leukocyte Esterase TRACE (NEGATIVE) H 04/15/20 01:09 Urine WBC (Auto) 18 /HPF 04/15/20 01:09 Urine RBC (Auto) 2 /HPF 04/15/20 01:09 U Hyaline Cast (Auto) 1 /LPF 04/15/20 01:09 Squamous Epi Cells Auto 28 /HPF 04/15/20 01:09 U Non-Squamous Epis Auto 3 /HPF 04/15/20 01:09 Urine Mucus (Auto) OCC /LPF 04/15/20 01:09 Urine Ascorbic Acid NEGATIVE (NEGATIVE) 04/15/20 01:09 04/14/20 04/14/20 04/15/20 20:15 22:31 05:57 CK-MB (CK-2) 14.40 H 16.90 H Troponin I 0.026 0.028 0.026 04/15/20 11:45 CK-MB (CK-2) 13.50 H Troponin I 0.016 Impressions: Head CT 04/14/20 19:59 IMPRESSION: 1. No acute intracranial hemorrhage is seen. 2. Mild cerebral atrophy and periventricular white matter changes are seen. If there is persistent clinical concern for a neurologic deficit, consider MRI brain with diffusion-weighted sequences for further evaluation. Plan Time Spent: Greater than 30 Minutes - Follow outpatientsCardiology and hematology Stroke Is this a Stroke Patient?: No Acute Heart Failure Is this a Heart Failure Patient?: No
[2020-04-16 16:47] VITALS: BP 100/56
== END 2020-04-16 17:29 | disposition home health service (06) | DRG 309 ==
LOC: ER 19:51 → EH 21:47 → 5TH 04-15 10:33 → 3S 04-15 14:57
PROVIDERS: ADMIT Family Medicine; ATTEND Family Medicine
DX: I48.0 Paroxysmal atrial fibrillation (principal); D61.818 Other pancytopenia; G45.9 Transient cerebral ischemic attack, unspecified; N39.0 Urinary tract infection, site not specified; I10 Essential (primary) hypertension; I25.10 Atherosclerotic heart disease of native coronary artery without angina pectoris; M15.9 Polyosteoarthritis, unspecified; F32.9 Major depressive disorder, single episode, unspecified; F41.9 Anxiety disorder, unspecified; E78.5 Hyperlipidemia, unspecified; R47.81 Slurred speech; R00.1 Bradycardia, unspecified; I49.5 Sick sinus syndrome; Z90.49 Acquired absence of other specified parts of digestive tract; Z95.5 Presence of coronary angioplasty implant and graft; Z82.49 Family history of ischemic heart disease and other diseases of the circulatory system; Z79.899 Other long term (current) drug therapy
CPT/HCPCS: 36415; 70450; 71045; 80048; 80053; 80061; 81001; 82550; 82553; 82962; 83605; 84484; 85025; 85610; 85730; 87040; 93005; 93010; 99285; J0696; J1160; J3490; J7030